=== PATIENT | male | born 1960 | race Hispanic/Latino ===

== ENCOUNTER 2018-10-07 15:34 | Emergency (ER) | payer OTHER ==
--- OUTSIDE RECORDS SUMMARY | 2018-10-07 15:35 | XMS REPORT | Clinical Summary ---
:1960 Author Organization [facility] Address [address] [place] [id number] Care Team Providers Name Role Phone Asked, No Pcp Primary Care Provider Unavailable Allergies No Known Allergies Medications Medication Sig Dispensed Refills Start Date End Date Status metoprolol succinate Take 200 mg by 0 Active XL (TOPROL-XL) 200 mg mouth daily. 24 hr tablet apixaban (ELIQUIS) Take 2.5 mg by 0 Active 2.5 mg tablet mouth 2 (two) times a day. clonIDINE Place 1 patch on 0 Active (CATAPRES-TTS) 0.3 the skin once a mg/24 hr week. diltiazem CD Take 120 mg by 0 Active (CardIZEM CD) 120 MG mouth daily. 24 hr capsule amIODarone (PACERONE) Take 100 mg by 0 Active 100 MG tablet mouth daily. hydrALAZINE Take 10 mg by mouth 0 Active (APRESOLINE) 10 MG 3 (three) times a tablet day. aspirin (ECOTRIN) 81 Take 81 mg by mouth 0 Active MG enteric coated daily. tablet ezetimibe (ZETIA) 10 Take 10 mg by mouth 0 Active mg tablet daily. bimatoprost (LUMIGAN) 1 drop nightly. 0 Active 0.01 % ophthalmic drops brimonidine-timolol Administer 1 drop 0 Active (COMBIGAN) 0.2-0.5 % to both eyes every ophthalmic solution 12 (twelve) hours. insulin GLARGINE Inject under the 0 Active (LANTUS) 100 unit/mL skin nightly. injection (vial) Active Problems Not on file Social History Tobacco Use Types Packs/Day Years Used Date Never Smoker Alcohol Use Drinks/Week oz/Week Comments No Sex Assigned at Date Recorded Not on file Job Start Date Occupation Industry Not on file Not on file Not on file Travel History Travel Start Travel End No recent travel history available. Last Filed Vital Signs Not on file Plan of Treatment Health Maintenance Due Date Last Done Comments COLON CANCER SCREENING 01/31/2010 SHINGLES VACCINES (1 of 2) 01/31/2010 INFLUENZA VACCINE 04/11/2018 Results Not on fileafter 10/06/2017 Insurance Payer Benefit Plan / Group Subscriber ID Type Phone Address MEDICARE MEDICARE PART A AND B xxxxxxxxxx Medicare [place], [place] AETNA AETNA HMO,POS,EPO, MC/EC xxxxxxxxxx HMO (Home) [place] [address] Advance Directives Patient has advance care planning documents on file. For more information, please contact:Luciano Hampton[address] [place] [address]
--- OUTSIDE RECORDS SUMMARY | 2018-10-07 15:36 | XMS REPORT | Clinical Summary ---
:1960 Author Organization [facility] Address [address] [place] [address] Care Team Providers Name Role Phone Hiram Primary Care Provider Allergies No Known Allergies Medications Medication Sig Dispensed Refills Start Date End Date Status metoprolol Take 200 mg by mouth 0 Active (TOPROL-XL) 100 MG 24 daily . hr tablet bimatoprost (LUMIGAN) Place 1 drop into 0 Active 0.03 % ophthalmic both eyes 2 (two) drops times daily . amiodarone (PACERONE) Take 200 mg by mouth 0 Active 200 MG tablet daily. ezetimibe (ZETIA) 10 Take 10 mg by mouth 0 Active mg tablet daily. insulin glargine Inject 50 Units 0 Active (LANTUS) 100 unit/mL subcutaneously 2 injection (two) times daily Use as directed-depending on glucose level. insulin aspart Inject 0 Active (NOVOLOG) 100 unit/mL subcutaneously as injection needed . sevelamer (RENVELA) Take 3,200 mg by 0 Active 800 mg tablet mouth 3 (three) times daily with meals Take 4 tabs TID w/ meals 2 TAB W/SNACKS. apixaban (ELIQUIS) Take 2.5 mg by mouth 0 Active 2.5 mg Tab tablet 2 (two) times daily. diltiazem (DILACOR Take 120 mg by mouth 0 Active XR) 120 MG 24 hr daily. capsuleIndications: Patient awaiting renal transplant cloNIDine HCl Take 0.1 mg by mouth 0 Active (CATAPRES) 0.1 MG daily . tabletIndications: Patient awaiting renal transplant hydrALAZINE Take 25 mg by mouth 0 Active (APRESOLINE) 25 MG 2 (two) times daily. tablet dorzolamide (TRUSOPT) Place 1 drop into 0 Active 2 % ophthalmic the right eye 2 solution (two) times daily. aspirin 81 MG EC Take 81 mg by mouth 0 Active tabletIndications: daily. Patient awaiting renal transplant, ESRD (end stage renal disease) ([facility]), Pre-transplant evaluation for ESRD (end stage renal disease), Diabetes mellitus due to underlying condition with hyperosmolarity without coma, with long-term current use of insulin ([facility]), PVD (peripheral vascular disease) ([facility]), S/P bilateral BKA (below knee amputation) ([facility]), Coronary artery disease involving [place] coronary artery of [place] heart without angina pectoris, Essential hypertension, Nonrheumatic aortic valve stenosis Active Problems Patient Care Coordination Note Dr Gibbs - Cardiol Tel.#: [phone] Dr. Herndon - Neph Tel.: [phone] Problem Noted Date Pre-transplant evaluation for ESRD (end stage renal disease) 09/21/2017 Patient awaiting renal transplant 09/21/2017 Diabetes mellitus due to underlying condition with hyperosmolarity without 07/2018 coma, with long-term current use of insulin Nonrheumatic aortic valve stenosis 09/21/2017 ESRD (end stage renal disease) 02/11/2016 Status post kidney transplant 02/11/2016 BK virus nephropathy 02/11/2016 Patient on waiting list for kidney transplant 02/11/2016 Diabetes mellitus due to underlying condition with hyperosmolarity without 10/2015 coma PVD (peripheral vascular disease) 02/11/2016 S/P bilateral BKA (below knee amputation) 02/11/2016 Chronic atrial fibrillation 02/11/2016 Essential hypertension 02/11/2016 Coronary artery disease 12/16/2014 Encounters Date Type Specialty Care Team Description 09/16/2018 Orders Only Transplant Iwona Peters RN Awaiting transplantation of kidney (Primary Dx) 08/03/2018 Abstract Transplant Iwona Peters RN 07/15/2018 Documentation Transplant Iwona Peters RN 01/08/2018 Orders Only Transplant Jorge Stanford MD 12/15/2017 Hospital Encounter Cardiology Jorge Stanford MD Aortic valve stenosis, etiology of cardiac valve disease unspecified 11/28/2017 Orders Only Cardiology Jorge Stanford MD Aortic valve stenosis, etiology of cardiac valve disease unspecified (Primary Dx) after 10/06/2017 Family History Medical History Relation Name Comments Hypertension Brother Hypertension Brother Hypertension Brother Hypertension Brother No Known Problem Daughter Heart attack Father Heart disease Father Diabetes Mother No Known Problem Son Relation Name Status Comments Brother Alive Brother Alive Brother Alive Brother Alive Daughter Alive Father Mother Alive Sister Alive Sister Alive Sister Alive Sister Alive Son Alive Social History Tobacco Use Types Packs/Day Years Used Date Never Smoker Smokeless Tobacco: Never Used Alcohol Use Drinks/Week oz/Week Comments No Sex Assigned at Date Recorded Not on file Job Start Date Occupation Industry Not on file Not on file Not on file Travel History Travel Start Travel End No recent travel history available. 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 FLOW PRA CLASS I WITH Routine 07/16/2018 9:52 Patient awaiting Results for this REFLEX TO ANTIBODY AM [employer] renal transplant procedure are in SPECIFICITY the results section. FLOW PRA CLASS II WITH Routine 04/12/2018 2:04 Patient awaiting Results for this REFLEX TO ANTIBODY PM CDT renal transplant procedure are in SPECIFICITY the results section. FLOW PRA CLASS I WITH Routine 04/12/2018 2:04 Patient awaiting Results for this REFLEX TO ANTIBODY PM CDT renal transplant procedure are in SPECIFICITY the results section. ECHOCARDIOGRAM REPORT - 12/15/2017 5:50 SCAN PM CDT TRANSESOPHAGEAL ECHO Routine 12/15/2017 10:29 Aortic valve Results for this AM CDT stenosis, etiology procedure are in of cardiac valve the results disease unspecified section. GOPAL ECHO W/ CONTRAST Routine 12/15/2017 FLOW PRA CLASS II WITH Routine 10/20/2017 11:03 Patient awaiting Results for this REFLEX TO ANTIBODY AM [employer] renal transplant procedure are in SPECIFICITY the results section. FLOW PRA CLASS I WITH Routine 10/20/2017 11:03 Patient awaiting Results for this REFLEX TO ANTIBODY AM [employer] renal transplant procedure are in SPECIFICITY the results section. after 10/06/2017 Results FLOW PRA CLASS II WITH REFLEX TO ANTIBODY SPECIFICITY (07/16/2018 9:52 AM [employer]) Only the most recent of3 resultswithin the time period is included. Flow Class II Percent Positive 0 [facility] Flow Class Report Comments [facility] Specimen Blood Narrative Performed At Disclaimer: [facility] This test was developed and its performance characteristics determined by the [facility]. It has not been cleared or approved by the U.S. Food and Drug Administration. The FDA has determined that such clearance or approval is not necessary. This test is used for clinical purposes. It should not be regarded as investigational or for research. This laboratory is certified under the Clinical Laboratory Improvement Amendments of 1988 (CLIA-88) as qualified to perform high complexity clinical laboratory testing. Performing Organization Address City/[facility] Phone Number [facility] [address] Sarthak Emma, [place]: [place] [address] [id number], CLIA#[id number] CAP#[id number] UNOS#[id number] FLOW PRA CLASS I WITH REFLEX TO ANTIBODY SPECIFICITY (07/16/2018 9:52 AM [employer] SUPERVISOR) Only the most recent of3 resultswithin the time period is included. Flow Class I Percent Positive 0 [facility] Flow Class Report Comments [facility] Specimen Blood Narrative Performed At Disclaimer: [facility] This test was developed and its performance characteristics determined by the [facility]. It has not been cleared or approved by the U.S. Food and Drug Administration. The FDA has determined that such clearance or approval is not necessary. This test is used for clinical purposes. It should not be regarded as investigational or for research. This laboratory is certified under the Clinical Laboratory Improvement Amendments of 1988 (CLIA-88) as qualified to perform high complexity clinical laboratory testing. Performing Organization Address City/State/Zipcode Phone Number [facility] ONE [facility] Emma, [place]: [place] [address] [id number], CLIA#[id number] CAP#[id number] UNOS#[id number] ECHOCARDIOGRAM REPORT - SCAN (12/15/2017 5:50 PM CDT) Narrative Performed At Transesophageal echo (12/15/2017 10:29 AM CDT) Ejection Fraction [facility] Narrative Performed At Transesophageal Echocardiography Report (GOPAL) [facility] Demographics Patient NameMonse HU of Study12/15/2017 Gender Male Visit [id number] Race Unknown Numberop Number Date of 1960 Referring PhysicianSgarett Patel MD Age 57 year(s) [facility] Mukund Jiang MD Physician FellowCarMESERET Espinoza Procedure Type of Study GOPAL procedure:TRANSESOPHAGEAL ECHO Indications:Aortic stenosis. Clinical History A-FIB,CAD,DM,ESRD,HTN,BKA,MV-CALCIFICATION,PVD Height: 73 inches Weight: 125.65 kg (277 lbs) BSA: 2.47 m^2 BMI: 36.55 kg/m^2 HR: 49 bpm BP: 81/43 mmHg Procedure Informed Consent GOPAL procedure notes The patient was counseled and informed consent was obtained. Topical and intravenous anesthesia was administered. The esophagus was intubated without difficulty. The probe was passed and all standard echocardiographic views were obtained. IV saline contrast echo examination was performed with GOPAL. The patient tolerated the procedure well. Procedure Medications - Versed I.V. 1 mg. - Fentanyl I.V. 25 mcg. Summary 1. Moderate aortic stenosis with peak/mean gradient is 33/21mmHg. AoV area by planimetry by 3D imaging is in the range of 1.85 cm2. Mild aortic regurgitation. AR vena contracta is 0.35. Mild to moderate AoV cusp thickening and calcification. 2. Normal left ventricular chamber size. Mild basal septal hypertrophy. Normal overall left ventricular systolic function. No apparent segmental wall motion abnormalities. The right ventricular chamber size and systolic function are within normal limits. LA appendage thrombus is not present 3. IV saline contrast injection was negative for a PFO (patent foramen ovale) at rest and post Valsalva . Previous Study Compared to prior study dated 08/18/2017, there is no significant change. Signature Findings Rhythm/BPRegular sinus rhythm during the exam. Left Ventricle Normal left ventricular chamber size. Mild basal se ptal hypertrophy. Normal overall left ventricular sy stolic function. No apparent segmental wall mo tion abnormalities. Left AtriumLA is enlarged but severity assessment is un reliable due to known GOPAL sector size limitation. LA appendage morphology is simple (wind sock) . LA ap pendage thrombus is not present . Right VentricleThe right ventricular chamber size and systolic fu nction are within normal limits. Right Atrium RA size is normal. A prominent Eustachian Valve is noted in the right at rium. Atrial SeptumA patent foramen ovale (PFO) is not demonstrated by co sabrina Doppler. IV saline contrast injection was negative for a PFO (p atent foramen ovale) at rest and post Valsalva . Aortic Valve Moderate aortic stenosis with peak/mean gradient is 33 /21mmHg. AoV area by planimetry by 3D imaging is in the range of 1.85 cm2. Mild aortic re gurgitation. AR vena contracta is 0.35. Mild to mo derate AoV cusp thickening and calcification. Mitral Valve Mild MV leaflet calcification, more prominent on th e anterior leaflet. Tricuspid ValveTV structure is normal. A trace of tricuspid regurgitation. Pulmonic Valve Normal PV structure and function. AortaAortic root size (SInus of Valsalva diameter) is no rmal . There is focal aortic atheroma in the fo llowing location: descending thoracic aorta . PericardiumNo pericardial effusion is visualized. IVC/SVC/PA/PV/PleuralThe visualized SVC appears normal. Chambers/Structures Left Ventricle LVOT Diameter: 2.23 cm Doppler/Quantitative Measurements Aortic Valve Peak Velocity: 2.85 m/sMean Velocity: 2.15 m/s Peak Gradient: 32.49 mmHgMean Gradient: 20.24 mmHg AV VTI: 73.83 cm LVOT Peak Velocity: 0.65 m/s Peak Gradient: 1.7 mmHg Mean Velocity: 0.5 m/sMean Gradient: 1.13 mmHg LVOT Diameter: 2.23 cm LVOT Area: 3.91 cm^2 Procedure Note Interface, External Ris In - 12/15/2017 5:28 PM CDT Transesophageal Echocardiography Report (GOPAL) Demographics Patient Name RASHAD HU Date of Study 12/15/2017 Gender Male Visit Number [id number] Race Unknown Room Number op Number Date of 1960 Referring Physician Abdoulaye Patel MD Age 57 year(s) 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 Clinical History A-FIB,CAD,DM,ESRD,HTN,BKA,MV-CALCIFICATION,PVD Height: 73 inches Weight: 125.65 kg (277 lbs) BSA: 2.47 m^2 BMI: 36.55 kg/m^2 HR: 49 bpm BP: 81/43 mmHg Procedure Informed Consent GOPAL procedure notes The patient was counseled and informed consent was obtained. Topical and intravenous anesthesia was administered. The esophagus was intubated without difficulty. The probe was passed and all standard echocardiographic views were obtained. IV saline contrast echo examination was performed with GOPAL. The patient tolerated the procedure well. Procedure Medications - Versed I.V. 1 mg. - Fentanyl I.V. 25 mcg. Summary 1. Moderate aortic stenosis with peak/mean gradient is 33/21mmHg. AoV area by planimetry by 3D imaging is in the range of 1.85 cm2. Mild aortic regurgitation. AR vena contracta is 0.35. Mild to moderate AoV cusp thickening and calcification. 2. Normal left ventricular chamber size. Mild basal septal hypertrophy. Normal overall left ventricular systolic function. No apparent segmental wall motion abnormalities. The right ventricular chamber size and systolic function are within normal limits. LA appendage thrombus is not present 3. IV saline contrast injection was negative for a PFO (patent foramen ovale) at rest and post Valsalva . Previous Study Compared to prior study dated 08/18/2017, there is no significant change. Signature Findings Rhythm/BP Regular sinus rhythm during the exam. Left Ventricle Normal left ventricular chamber size. Mild basal septal hypertrophy. Normal overall left ventricular systolic function. No apparent segmental wall motion abnormalities. Left Atrium LA is enlarged but severity assessment is unreliable due to known GOPAL sector size limitation. LA appendage morphology is simple (wind sock) . LA appendage thrombus is not present . Right Ventricle The right ventricular chamber size and systolic function are within normal limits. Right Atrium RA size is normal. A prominent Eustachian Valve is noted in the right atrium. Atrial Septum A patent foramen ovale (PFO) is not demonstrated by color Doppler. IV saline contrast injection was negative for a PFO (patent foramen ovale) at rest and post Valsalva . Aortic Valve Moderate aortic stenosis with peak/mean gradient is 33/21mmHg. AoV area by planimetry by 3D imaging is in the range of 1.85 cm2. Mild aortic regurgitation. AR vena contracta is 0.35. Mild to moderate AoV cusp thickening and calcification. Mitral Valve Mild MV leaflet calcification, more prominent on the anterior leaflet. Tricuspid Valve TV structure is normal. A trace of tricuspid regurgitation. Pulmonic Valve Normal PV structure and function. Aorta Aortic root size (SInus of Valsalva diameter) is normal . There is focal aortic atheroma in the following location: descending thoracic aorta . Pericardium No pericardial effusion is visualized. IVC/SVC/PA/PV/Pleural The visualized SVC appears normal. Chambers/Structures Left Ventricle LVOT Diameter: 2.23 cm Doppler/Quantitative Measurements Aortic Valve Peak Velocity: 2.85 m/s Mean Velocity: 2.15 m/s Peak Gradient: 32.49 mmHg Mean Gradient: 20.24 mmHg AV VTI: 73.83 cm LVOT Peak Velocity: 0.65 m/s Peak Gradient: 1.7 mmHg Mean Velocity: 0.5 m/s Mean Gradient: 1.13 mmHg LVOT Diameter: 2.23 cm LVOT Area: 3.91 cm^2 Performing Organization Address City/State/Zipcode Phone Number [facility] GOPAL ECHO W/ CONTRAST (12/15/2017) Narrative Performed At after 10/06/2017 Insurance Payer Benefit Plan / Group Subscriber ID Type Phone Address MEDICARE MEDICARE A B xxxxxxxxxx Medicare AETNA - MGD CARE AETNA HMO POS QPOS xxxxxxxxxx HMO/POS Advance Directives For more information, please contact:[address] [phone] Code Status Date Activated Date Inactivated Comments Full Code 12/16/2014 7:13 AM 12/16/2014 3:37 PM This code status was determined by: Patient
--- OUTSIDE RECORDS SUMMARY | 2018-10-07 15:36 | XMS REPORT ---
:1960 [facility] Address [address] [place] [address] [address]. Petersen [address] [place] [address] Care Team Providers Name Role Phone KAREN HARTJUANSONNY LOPEZMARIA L Unavailable Unavailable ANGELICA GARCIAS Unavailable Unavailable SYSTEM, PROVIDER NOT IN Unavailable Unavailable Problems This patient has no known problems. Allergies, Adverse Reactions, Alerts This patient has no known allergies or adverse reactions. Medications This patient has no known medications. Results Test Description Test Time Test Comments Text Results Atomic Results Result Comments FLOW PRA CLASS I AND II 2017-09-01 09:33:00 Test Item Value Reference Range Comments DATE OF SERUM (BEAKER) (test xdhu=1166) [id number] SERUM # (BEAKER) (test tswb=9528) [id number] FLOW PRA CLASS I AND II (test oikk=7870) See Scanned Report [id number] 14:03:00 Test Item Value Reference Range Comments PROSTATE SPECIFIC ANTIGEN (BEAKER) (test tgmk=242) 0.9 ng/mL 0.0-4.0 HEPATITIS B SURFACE [id number] 14:03:00 Test Item Value Reference Range Comments HEPATITIS B SURFACE ANTIBODY (BEAKER) (test 219.6 mIU/mL <8.0 jbbl=737) FLOW PRA CLASS I AND [id number] 10:35:00 Test Item Value Reference Range Comments DATE OF SERUM (BEAKER) (test abgm=4724) [id number] SERUM # (BEAKER) (test dvug=5657) [id number] FLOW PRA CLASS I AND II (test uwpk=4456) See Scanned Report AB SPECIFICITY CLASS [id number] 14:51:00 Test Item Value Reference Range Comments DATE OF SERUM (BEAKER) (test eytv=3655) [id number] SERUM # (BEAKER) (test krtb=9296) [id number] AB SPECIFICITY CLASS I (BEAKER) (test See Scanned Report nese=1023) FLOW PRA CLASS I AND [id number] 12:38:00 Test Item Value Reference Range Comments DATE OF SERUM (BEAKER) (test zyae=6905) [id number] SERUM # (BEAKER) (test ihcg=8541) [id number] FLOW PRA CLASS I AND II (test psdr=7230) See Scanned Report AB SPECIFICITY CLASS [id number] 20:03:00 Test Item Value Reference Range Comments DATE OF SERUM (BEAKER) (test jnor=8506) [id number] SERUM # (BEAKER) (test fjzr=6183) 22408 AB SPECIFICITY CLASS I (BEAKER) (test See Scanned Report egqr=3243) AB SPECIFICITY CLASS [id number] 12:38:00 Test Item Value Reference Range Comments DATE OF SERUM (BEAKER) (test hucb=7741) [id number] SERUM # (BEAKER) (test keku=0921) [id number] AB SPECIFICITY CLASS I (BEAKER) (test See Scanned Report pqpc=0094) FLOW PRA CLASS I AND [id number] 13:37:00 Test Item Value Reference Range Comments DATE OF SERUM (BEAKER) (test ysna=3688) [id number] SERUM # (BEAKER) (test rkac=1200) [id number] FLOW PRA CLASS I AND II (test ywoz=2832) See Scanned Report FLOW PRA CLASS I AND [id number] 09:49:00 Test Item Value Reference Range Comments DATE OF SERUM (BEAKER) (test njgu=6279) [id number] SERUM # (BEAKER) (test gwln=9587) [id number] FLOW PRA CLASS I AND II (test fbwm=1146) See Scanned Report AB SPECIFICITY CLASS [id number] 15:29:00 Test Item Value Reference Range Comments DATE OF SERUM (BEAKER) (test oyph=3307) 03/15/17 SERUM # (BEAKER) (test owra=1185) [id number] AB SPECIFICITY CLASS I (BEAKER) (test See Scanned Report uksw=1908) AB SPECIFICITY CLASS [id number] 14:06:00 Test Item Value Reference Range Comments DATE OF SERUM (BEAKER) (test vrzv=4331) [id number] SERUM # (BEAKER) (test vsps=8102) [id number] AB SPECIFICITY CLASS I (BEAKER) (test See Scanned Report zwal=9478) FLOW PRA CLASS I AND [id number] 13:16:00 Test Item Value Reference Range Comments DATE OF SERUM (BEAKER) (test rvdn=7777) [id number] SERUM # (BEAKER) (test oele=6910) [id number] FLOW PRA CLASS I AND II (test nxdn=8534) See Scanned Report AB SPECIFICITY CLASS [id number] 10:23:00 Test Item Value Reference Range Comments DATE OF SERUM (BEAKER) (test ttjl=9616) [id number] SERUM # (BEAKER) (test sxtl=5618) [id number] AB SPECIFICITY CLASS I (BEAKER) (test See Scanned Report kpjf=9010) FLOW PRA CLASS I AND [id number] 12:53:00 Test Item Value Reference Range Comments DATE OF SERUM (BEAKER) (test arho=1001) [id number] SERUM # (BEAKER) (test ptxh=0541) [id number] FLOW PRA CLASS I AND II (test vduz=5222) See Scanned Report
[2018-10-07] MEDS ORDERED: MEPERIDINE HCL 50 MG/ML AMP ONE (16:26)
--- NOTE | 2018-10-07 16:52 | RAD REPORT ---
EXAM DESCRIPTION: CT - Head Brain Wo Cont - 10/07/2018 4:19 pm CLINICAL HISTORY: Head injury status post fall COMPARISON: None. TECHNIQUE: Computed axial tomography of the head was obtained. Unenhanced and enhanced images obtain ed. 50 cc Isovue-[address] scans are performed using dose optimization technique as appropriate and may include automated exposure control or mA/KV adjustment according to patient size. FINDINGS: An intracranial bleed is not seen . The ventricles are normal in caliber. No extra-axial fluid collection is noted. No abnormal enhancement seen Fluid within the sinuses/ mastoids is not seen. IMPRESSION: No acute intracranial abnormality is seen. If patient's symptoms persist MRI of the bra in would be recommended.
[2018-10-07 17:03] LABS: Absolute Lymphocytes (CBC) 0.7 K/uL (0.7-4.9); Absolute Monocytes 0.4 K/uL (0.1-1.3); Absolute Neutrophil 6.1 K/uL (1.8-8.0); Basophils % 0.5 % (0-1.3); Eosinophils % 4.4 % (0-4.4); Lymphocytes % 9.4 % (15.3-44.8); Monocytes % 5.5 % (3.3-12.3); RBC Red Blood Cell Count 3.64 M/uL (4.33-5.43)
[2018-10-07 17:12] LABS: Protime INR 1.13
--- NOTE | 2018-10-07 17:13 | RAD REPORT ---
EXAM DESCRIPTION: CT - Chest Abd Pelvis Wo Con - 10/07/2018 4:30 pm CLINICAL HISTORY: Chest and abdominal pain status post fall COMPARISON: none TECHNIQUE: Computed axial tomography of the chest, abdomen and pelvis was obtained. Oral contrast wa s given. IV contrast was not requested. All CT scans are performed using dose optimization technique as appropriate and may include automated exposure control or mA/KV adjustment according to patient size. FINDINGS: The evaluation of mediastinum, angela, vessels and solid organs is limited secondary to the lack of IV contrast administration Minimally displaced fractures involve the fourth and fifth left lateral ribs. Mildly displaced fractu re involves the sixth lateral left rib. Mildly to moderately displaced fracture involves the seventh left lateral rib. A pneumothorax is not seen. Mild to moderate tree-in-bud opacities are present within the left lower lobe A pleural effusion is not seen. A pericardial effusion is not noted. A mediastinal hematoma is not seen. Small splenic subcapsular hematoma is present. Small laceration of the inferior spleen is suspected a lthough evaluation is limited secondary to the lack of IV contrast. Small amount of blood is present within the left paracolic gutter. Small to moderate amount of blood is present within the pelvis. The liver, pancreas and bladder do not demonstrate a traumatic injury. Atrophic kidneys with transplant kidney in the right pelvis. Mild hydronephrosis of the transplant ki dney is seen without visualization of a ureteral calculus Chronic destruction of the vertebral bodies of T7 and T8 with small paraspinal soft tissue seen. The T6-7 disc space is obliterated. Irregularity involves the vertebral endplate of the T6 vertebral body . Mild perivertebral soft tissue noted. IMPRESSION: Fractures involving the fourth, fifth, sixth, seventh left lateral ribs Mild to moderate tree-in-bud opacities left lower lobe may indicate an atypical infection or pneumoni tis Small subcapsular splenic hematoma with small amount of hemoperitoneum within the abdomen and a small to moderate amount of hemoperitoneum within the pelvis Chronic osteomyelitis of the T6, T7 and T8 Exam was discussed with Dr. Sandy In the emergency room 5:04 p.m. October 07, 2018
--- NOTE | 2018-10-07 17:15 | RAD REPORT ---
EXAM DESCRIPTION: Crystal Pizarro And Jacquelyn (2 Views)10/07/2018 4:54 pm CLINICAL HISTORY: Chest pain COMPARISON: 2016 FINDINGS: Mildly to moderately displaced fractures involve fourth through seventh left lateral ribs . A pneumothorax is not seen. Mild left basilar lung opacities are noted. Right lung is clear. Heart is normal size
--- NOTE | 2018-10-07 17:15 | RAD REPORT ---
EXAM DESCRIPTION: RAD - Ribs Left - 10/07/2018 4:54 pm CLINICAL HISTORY: Left rib pain FINDINGS: Mildly to moderately displaced fractures involve the left lateral fourth through seventh r ibs. A pneumothorax is not seen. Mild left lower lobe opacities are noted. A pleural effusion is not seen
--- NOTE | 2018-10-07 17:34 | ER ---
Nurse's Notes [facility] Name: Archie Hu Age: 58 yrs Sex: Male : 1960 Arrival Date: 10/07/2018 Time: 15:37 Bed 3 Private MD: ROSE MARIE TOWNSEND Diagnosis: Multiple fractures of ribs, left side;Hemoperitoneum;Splenic Laceration Presentation: 10/07 15:41 Presenting complaint: Patient states: I was standing and stumbled over something and la1 landed on my left side, I hit my head, my chest, and my left arm, I almost passed out it was fading to black but I also to elequis. My ribs hurt the worst. Transition of care: patient was not received from another setting of care. Onset of symptoms was October 07, 2018. Risk Assessment: Do you want to hurt yourself or someone else? Patient reports no desire to harm self or others. Initial Sepsis Screen: Does the patient meet any 2 criteria? No. Patient's initial sepsis screen is negative. Does the patient have a suspected source of infection? No. Patient's initial sepsis screen is negative. Care prior to arrival: None. 15:41 Method Of Arrival: Ambulatory la1 15:41 Acuity: KEVON 3 la1 17:43 Mechanism of Injury: Fall from standing position. Trauma event details: Injury occurred ph in the [facility]. 17:44 Acuity: KEVON 1 ph Trauma Activation: Alert Physician: ED Physician; Name: Vika; Notified At: ; Arrived At: Physician: General Surgeon; Name: ; Notified At: ; Arrived At: Physician: Radiology; Name: June; Notified At: ; Arrived At: Physician: Respiratory; Name: ; Notified At: ; Arrived At: Physician: Lab; Name: ; Notified At: ; Arrived At: Historical: - Allergies: 15:42 No Known Allergies; la1 - Home Meds: 15:45 Eliquis 2.5 mg oral tab 1 tab 2 times per day [Active]; metoprolol tartrate 200 mg Oral rb1 tab 1 tab once daily [Active]; clonidine HCl 0.3 mg Oral tab 1 tab daily [Active]; hydralazine 25 mg Oral tab 1 tab 2 times per day [Active]; aspirin 81 mg Oral chew 1 tab once daily [Active]; Lantus Sub-Q [Active]; Lumigan 0.01 % ophthalmic drop 1 drop daily [Active]; Trusopt 2 % Opht drop 1 drop twice a day [Active]; - PMHx: 15:42 Atrial Fib; Diabetes - IDDM; Dialysis; MWF - compliant; ESRD; Glaucoma; Hyperlipidemia; la1 - PSHx: 15:45 Bilateral BKA; Dialysis shunt left forearm; rb1 - Immunization history:: Adult Immunizations up to date. - Social history:: Smoking status: Patient/guardian denies using tobacco. - Immunization history: Last tetanus immunization: unknown. - Ebola Screening: : No symptoms or risks identified at this time. - Family history:: not pertinent. - Hospitalizations: : No recent hospitalization is reported. Screenin:46 Abuse screen: Denies threats or abuse. Denies injuries from another. Nutritional ph screening: No deficits noted. Tuberculosis screening: No symptoms or risk factors identified. Fall Risk Fall in past 12 months (25 points). Secondary diagnosis (15 points) impaired mobility, IV access (20 points). Ambulatory Aid- None/Bed Rest/Nurse Assist (0 pts). Gait- Impaired (20 pts.). Mental Status- Overestimates/Forgets Limitations (15 pts.). Total Guidry Fall Scale indicates High Risk Score (45 or more points). Fall prevention measures have been instituted. Side Rails Up X 2 Placed Close to Nursing Station Frequent Obs/Assessments Occuring Family Present and informed to notify staff if the need to leave the bedside As available patient and family educated on Fall Prevention Program and Strategies. Primary Survey: 17:45 NO uncontrolled hemorrhage observed. Breathing/Chest: Respiratory pattern: regular, sg Respiratory effort: spontaneous, unlabored, Breath sounds: clear, diminished. Circulation: Heart tones present. Pulses: palpable right radial artery and left radial artery. Skin color: pale, ashen, Skin temperature: dry. Disability Alert. Exposure/Environment: All clothing and personal items were removed. Forensic evidence collection is not deemed to be indicated at this time. Items placed in patient belonging bag. There is no evidence of uncontrolled external bleeding. Obvious injury(ies) are noted at this time: Left Rib pain. 18:01 Reassessment Airway Airway Breathing/Chest Respiratory pattern Regular Respiratory sg effort Spontaneous Unlabored Breath sounds Clear Chest inspection Symmetrical Circulation Heart rhythm Sinus tach Heart tones Present Pulses Palpable Temperature Warm. Secondary Survey: 17:45 HEENT: Head No injury/deformity Face No injury/deformity Eyes: No injury or deformity sg noted. Ears: clear Nose: clear Throat: is clear. Gastrointestinal: Abdomen is soft, non-distended, Bowel sounds present in all quadrants. Palpation No deficit noted. : pt reports very little urine output, due to dialysis MWF. Musculoskeletal: Circulation, motion, and sensation intact. Range of motion: intact in all extremities, pt reports Bilateral BKA. Injury Description: pt reports pain in the left side of chest. Assessment: 15:45 General: Appears in no apparent distress. comfortable, Behavior is calm, cooperative. rb1 Neuro: Level of Consciousness is awake, alert, obeys commands, Oriented to person, place, time, situation. Cardiovascular: Capillary refill < 3 seconds is brisk in bilateral fingers. Respiratory: Airway is patent Respiratory effort is even, unlabored, Respiratory pattern is regular, symmetrical. 15:45 Pain: Complains of pain in left ribs Pain currently is 10 out of 10 on a pain scale. rb1 Pain began 30 min ago. Neuro: Reports dizziness. Respiratory: Reports shortness of breath. GI: No signs and/or symptoms were reported involving the gastrointestinal system. : Reports Dialysis on --. Derm: Skin is dry, Skin is normal, Skin temperature is warm. Musculoskeletal: Bilateral amputations on the lower extremities. 16:45 Reassessment: Patient appears in no apparent distress at this time. No changes from rb1 previously documented assessment. at bedside. 17:20 Reassessment: Patient and/or family updated on plan of care and expected duration. Pain rb1 level reassessed. Patient is alert, oriented x 3, equal unlabored respirations, skin warm/dry/pink. Patient states symptoms have not improved. 17:30 Reassessment: Pt. was moved to Bed #3, report given to ERI Rapp. rb1 17:40 Reassessment: Called report to Mei Lal RN at [place]. Information from the [facility] rb1 was given. All questions asked and answered. 17:40 Reassessment: pt report received from Diane HWANG. sg 18:08 Reassessment: at bedside updating pt and pt family on POC, awaiting [facility] sg at si time. 18:16 Reassessment: Patient appears in no apparent distress at this time. No changes from sg previously documented assessment. [facility] at bedside at this time, pt reprot given to Simon with [facility]. Vital Signs: 15:42 BP 102 / 67; Pulse 101; Resp 18; Temp 97.4; Pulse Ox 98% on R/A; Weight 124.74 kg; la1 Height 6 ft. 1 in. (185.42 cm); Pain 10/10; 16:42 BP 106 / 87; Pulse 51; Resp 20; Pulse Ox 100% on R/A; Pain 10/10; rb1 17:00 BP 106 / 79; Pulse 86; Resp 20; Pulse Ox 100% on R/A; rb1 17:46 BP 112 / 75; Pulse 105; Resp 17; Pulse Ox 98% on R/A; sg 17:58 BP 94 / 67; Pulse 106; Resp 17; Temp 97.7; Pulse Ox 98% on R/A; Pain 10/10; sg 18:10 BP 109 / 76; Pulse 112; Resp 17; Temp 97.4; Pulse Ox 98% on R/A; Pain 7/10; sg 15:42 Body Mass Index 36.28 (124.74 kg, 185.42 cm) la1 Harrison Coma Score: 15:45 Eye Response: spontaneous(4). Verbal Response: oriented(5). Motor Response: obeys rb1 commands(6). Total: 15. 17:30 Eye Response: spontaneous(4). Verbal Response: oriented(5). Motor Response: obeys rb1 commands(6). Total: 15. 17:48 Eye Response: spontaneous(4). Verbal Response: oriented(5). Motor Response: obeys ph commands(6). Total: 15. 17:58 Eye Response: spontaneous(4). Verbal Response: oriented(5). Motor Response: obeys sg commands(6). Total: 15. Trauma Score (Adult): 15:45 Eye Response: spontaneous(1); Verbal Response: oriented(1); Motor Response: obeys rb1 commands(2); Systolic BP: > 89 mm Hg(4); Respiratory Rate: 10 to 29 per min(4); Harrison Score: 15; Trauma Score: 12 16:42 Eye Response: spontaneous(1); Verbal Response: oriented(1); Motor Response: obeys rb1 commands(2); Systolic BP: > 89 mm Hg(4); Respiratory Rate: 10 to 29 per min(4); Harrison Score: 15; Trauma Score: 12 17:30 Eye Response: spontaneous(1); Verbal Response: oriented(1); Motor Response: obeys rb1 commands(2); Systolic BP: > 89 mm Hg(4); Respiratory Rate: 10 to 29 per min(4); Giacomo Score: 15; Trauma Score: 12 17:58 Eye Response: spontaneous(1); Verbal Response: oriented(1); Motor Response: obeys sg commands(2); Systolic BP: > 89 mm Hg(4); Respiratory Rate: 10 to 29 per min(4); Harrison Score: 15; Trauma Score: 12 ED Course: 15:37 Patient arrived in ED. mr 15:37 ROSE MARIE TOWNSEND is Private Physician. mr 15:42 Triage completed. la1 15:43 Boby Sandy MD is Attending Physician. rn 15:45 Patient maintains SpO2 saturation greater than 95% on room air. rb1 16:12 Diane Saunders, RN is Primary Nurse. rb1 16:19 CT Head Brain wo Cont In Process Unspecified. EDMS 16:30 Chest Abd Pelvis Wo Con In Process Unspecified. EDMS 16:31 CT completed. Patient moved back from CT. bq 16:50 Inserted saline lock: 22 gauge in right antecubital area, using aseptic technique. rb1 Blood collected. 16:55 XRAY Ribs LEFT In Process Unspecified. EDMS 16:55 XRAY Chest Pa And Lat (2 Views) In Process Unspecified. EDMS 17:40 Inserted saline lock: 20 gauge in right wrist, using aseptic technique. Blood collected.sg 17:47 Patient maintains SpO2 saturation greater than 95% on room air. Thermoregulation: warm ph blanket given to patient. 17:47 Arm band placed on. ph 17:47 Patient has correct armband on for positive identification. Bed in low position. Call ph light in reach. Side rails up X2. ekg monitor tech on. Pulse ox on. NIBP on. 17:47 Warm blanket given. Head of bed elevated. pt prefers to sit on side of bed with feet sg firmly on the floor, pt spouse remains at bedside. 17:55 No provider procedures requiring assistance completed. Patient transferred, IV remains ph in place. 18:03 Primary Nurse role handed off by Diane Saunders, ERI 18:03 Dionte Montiel, RN is Primary Nurse. sg Administered Medications: 16:40 Drug: Demerol 50 mg {Note: Pt. was off the unit floor for testing.} Route: IM; Site: rb1 right deltoid; 17:05 Follow up: Response: No adverse reaction; Pain is unchanged, physician notified rb1 17:25 Drug: NS 0.9% 250 ml Route: IV; Rate: 1 bolus; Site: right antecubital; rb1 17:48 Drug: Demerol 25 mg Route: IVP; Site: right wrist; sg 18:12 Drug: Zofran 4 mg Route: IVP; Site: right wrist; sg Intake: 17:54 IV: 250ml (IV Fluid); Total: 250ml. ph 17:58 PO: 0ml; Total: 250ml. sg Outcome: 17:34 ER care complete, transfer ordered by MD. rn 17:55 Instructed on the need for transfer. ph 18:02 Patient's length of stay in the Emergency Department was greater than 2 hours. sg 18:18 Transferred by helicopter to [facility], Transfer form completed. X-rays sent sg w/ patient. 18:18 Condition: stable 18:18 Patient left the ED. sg Signatures: Dispatcher [employer] EDMS Dionte Montiel, RN RN Lydia Coburn BetBoby Knox MD MD rn Attema, Lee, RN RN la1 Hall, Patricia, RN RN Diane Saunders, RN RN rb1 Corrections: (The following items were deleted from the chart) 18:02 17:46 BP 112 / 75; Pulse 65bpm; Resp 17bpm; Pulse Ox 98% RA; sg sg 18:02 17:58 BP 94 / 67; Pulse 62bpm; Resp 17bpm; Pulse Ox 98% RA; Temp 97.7F; Pain 10/10; sg sg
--- NOTE | 2018-10-07 17:34 | EDPHYS ---
Physician Documentation [facility] Name: Archie Hu Age: 58 yrs Sex: Male : 1960 Arrival Date: 10/07/2018 Time: 15:37 Bed 3 Private MD: ROSE MARIE TOWNSEND ED Physician Boby Sandy HPI: 10/07 16:07 This 58 yrs old Male presents to ER via Ambulatory with complaints of Fall rn Injury. 16:07 Details of fall: The patient fell from an upright position. Onset: The symptoms/episode rn began/occurred just prior to arrival. Associated injuries: The patient sustained injury to the chest, pain with movement, tenderness. Severity of symptoms: At their worst the symptoms were moderate, in the emergency department the symptoms are unchanged. The patient has not experienced similar symptoms in the past. Reports walking, fell while trying to pivot, landed on left side, arm tucked in and hit arm then left chest, hurts to touch and move, no sob. Also hit left side of head, on eliquis, no LOC, no vomiting. . Historical: - Allergies: 15:42 No Known Allergies; la1 - Home Meds: 15:45 Eliquis 2.5 mg oral tab 1 tab 2 times per day [Active]; metoprolol tartrate 200 mg Oral rb1 tab 1 tab once daily [Active]; clonidine HCl 0.3 mg Oral tab 1 tab daily [Active]; hydralazine 25 mg Oral tab 1 tab 2 times per day [Active]; aspirin 81 mg Oral chew 1 tab once daily [Active]; Lantus Sub-Q [Active]; Lumigan 0.01 % ophthalmic drop 1 drop daily [Active]; Trusopt 2 % Opht drop 1 drop twice a day [Active]; - PMHx: 15:42 Atrial Fib; Diabetes - IDDM; Dialysis; MWF - compliant; ESRD; Glaucoma; Hyperlipidemia; la1 - PSHx: 15:45 Bilateral BKA; Dialysis shunt left forearm; rb1 - Immunization history:: Adult Immunizations up to date. - Social history:: Smoking status: Patient/guardian denies using tobacco. - Immunization history: Last tetanus immunization: unknown. - Ebola Screening: : No symptoms or risks identified at this time. - Family history:: not pertinent. - Hospitalizations: : No recent hospitalization is reported. ROS: 16:07 Constitutional: Negative for fever, chills, and weight loss, Eyes: Negative for injury, rn pain, redness, and discharge, Neck: Negative for injury, pain, and swelling, Cardiovascular: + left chest wall pain Respiratory: Negative for shortness of breath, cough, wheezing, and pleuritic chest pain, Abdomen/GI: Negative for abdominal pain, nausea, vomiting, diarrhea, and constipation, MS/Extremity: Negative for injury and deformity, Skin: Negative for injury, rash, and discoloration, Neuro: Negative for headache, weakness, numbness, tingling, and seizure. Exam: 16:07 Constitutional: This is a well developed, well nourished patient who is awake, alert, rn and in no acute distress. Ambulatory from wheelchair to stretcher Head/Face: Normocephalic, atraumatic. Eyes: Pupils equal round and reactive to light, extra-ocular motions intact. Periorbital areas with no swelling, redness, or edema. Neck: No midline tenderness Chest/axilla: + mild tenderness left lateral/posterior chest wall, no ecchymosis, no crepitus Cardiovascular: Regular rate, No pulse deficits. Respiratory: Equal bilateral breath sounds. No increased work of breathing, no retractions or nasal flaring. Abdomen/GI: soft, non-tender MS/ Extremity: Bilateral lower extremity orthotics, no limited ROM at hips or pain Neuro: Awake and alert, GCS 15, oriented to person, place, time, and situation. Cranial nerves II-XII grossly intact. Motor strength 5/5 in all extremities. Sensory grossly intact. Cerebellar exam normal. Normal gait. Vital Signs: 15:42 BP 102 / 67; Pulse 101; Resp 18; Temp 97.4; Pulse Ox 98% on R/A; Weight 124.74 kg; la1 Height 6 ft. 1 in. (185.42 cm); Pain 10/10; 16:42 BP 106 / 87; Pulse 51; Resp 20; Pulse Ox 100% on R/A; Pain 10/10; rb1 17:00 BP 106 / 79; Pulse 86; Resp 20; Pulse Ox 100% on R/A; rb1 17:46 BP 112 / 75; Pulse 105; Resp 17; Pulse Ox 98% on R/A; sg 17:58 BP 94 / 67; Pulse 106; Resp 17; Temp 97.7; Pulse Ox 98% on R/A; Pain 10/10; sg 18:10 BP 109 / 76; Pulse 112; Resp 17; Temp 97.4; Pulse Ox 98% on R/A; Pain 7/10; sg 15:42 Body Mass Index 36.28 (124.74 kg, 185.42 cm) la1 Giacomo Coma Score: 15:45 Eye Response: spontaneous(4). Verbal Response: oriented(5). Motor Response: obeys rb1 commands(6). Total: 15. 17:30 Eye Response: spontaneous(4). Verbal Response: oriented(5). Motor Response: obeys rb1 commands(6). Total: 15. 17:48 Eye Response: spontaneous(4). Verbal Response: oriented(5). Motor Response: obeys ph commands(6). Total: 15. 17:58 Eye Response: spontaneous(4). Verbal Response: oriented(5). Motor Response: obeys sg commands(6). Total: 15. Trauma Score (Adult): 15:45 Eye Response: spontaneous(1); Verbal Response: oriented(1); Motor Response: obeys rb1 commands(2); Systolic BP: > 89 mm Hg(4); Respiratory Rate: 10 to 29 per min(4); [place] Score: 15; Trauma Score: 12 16:42 Eye Response: spontaneous(1); Verbal Response: oriented(1); Motor Response: obeys rb1 commands(2); Systolic BP: > 89 mm Hg(4); Respiratory Rate: 10 to 29 per min(4); Giacomo Score: 15; Trauma Score: 12 17:30 Eye Response: spontaneous(1); Verbal Response: oriented(1); Motor Response: obeys rb1 commands(2); Systolic BP: > 89 mm Hg(4); Respiratory Rate: 10 to 29 per min(4); Giacomo Score: 15; Trauma Score: 12 17:58 Eye Response: spontaneous(1); Verbal Response: oriented(1); Motor Response: obeys sg commands(2); Systolic BP: > 89 mm Hg(4); Respiratory Rate: 10 to 29 per min(4); [place] Score: 15; Trauma Score: 12 MDM: 15:43 Patient medically screened. rn 17:10 ED course: Paging Dr. Butler regarding small amount of hemoperitoneum. 4 rib fractures, rn no pneumothorax. stable vitals. Did not take eliquis today. . 17:12 ED course: Dr. Butler consulted, requests transfer to [facility], states cannot rn manage here without angiography and might need embolization.. 17:30 Differential diagnosis: closed head injury, contusion, fracture, laceration, sprain, rn strain, hemoperitoneum, rib fractures, pneumothorax. Data reviewed: vital signs, nurses notes, lab test result(s), radiologic studies, CT scan, plain films, and as a result, I will admit patient. Counseling: I had a detailed discussion with the patient and/or guardian regarding: the historical points, exam findings, and any diagnostic results supporting the discharge/admit diagnosis, lab results, radiology results, the need to transfer to another facility, for higher level of care. ED course: Accepted without consultation to [facility], lifeflight requested given on anticoagulation. . 18:14 ED course: Lab unable to fill FFP, life flight here, FFP not ready, told takes atleast rn 15 minutes, life flight has FFP and will ask to give en route. . 10/07 16:27 Order name: CBC with Diff; Complete Time: 17:04 rn 10/07 16:27 Order name: Basic Metabolic Panel; Complete Time: 17:29 rn 10/07 16:27 Order name: Protime (+inr); Complete Time: 17:21 rn 10/07 16:27 Order name: Ptt, Activated; Complete Time: 17:21 rn 10/07 17:41 Order name: Type And Screen hb 10/07 15:49 Order name: CT Head Brain wo Cont; Complete Time: 17:04 rn 10/07 15:49 Order name: XRAY Ribs LEFT; Complete Time: 17:21 rn 10/07 15:49 Order name: XRAY Chest Pa And Lat (2 Views); Complete Time: 17:21 rn 10/07 16:24 Order name: Chest Abd Pelvis Wo Con; Complete Time: 17:21 EDMS 10/07 16:27 Order name: IV Start; Complete Time: 16:58 rn 10/07 17:11 Order name: NPO; Complete Time: 17:37 rn Administered Medications: 16:40 Drug: Demerol 50 mg {Note: Pt. was off the unit floor for testing.} Route: IM; Site: rb1 right deltoid; 17:05 Follow up: Response: No adverse reaction; Pain is unchanged, physician notified rb1 17:25 Drug: NS 0.9% 250 ml Route: IV; Rate: 1 bolus; Site: right antecubital; rb1 17:48 Drug: Demerol 25 mg Route: IVP; Site: right wrist; sg 18:12 Drug: Zofran 4 mg Route: IVP; Site: right wrist; sg Disposition: 10/07/18 17:34 Transfer ordered to [facility]. Diagnosis are Multiple fractures of ribs, left side, Hemoperitoneum, Splenic Laceration. - Reason for transfer: Higher level of care. - Accepting physician is Dr. Maradiaga. - Condition is Stable. - Problem is new. - Symptoms have improved. Signatures: Dispatcher [employer] EDMS Dionte Montiel RN RN sg Boby Sandy MD MD rn Attema, Lee, RN RN laNiurka Hurley RN RN Diane Saunders RN RN rb1 Corrections: (The following items were deleted from the chart) 18:18 17:34 10/07/2018 17:34 Transfer ordered to [facility]. sg Diagnosis is Multiple fractures of ribs, left side; Hemoperitoneum; Splenic Laceration. Reason for transfer: Higher level of care. Accepting physician is Dr. Maradiaga. Condition is Stable. Problem is new. Symptoms have improved. rn
[2018-10-07] MEDS ORDERED: NA CHLORIDE 0.9% 0 ML ONE (17:35)
[2018-10-07] MEDS ORDERED: MEPERIDINE HCL 25 MG/0.5 ML ONE (17:57)
[2018-10-07] MEDS ORDERED: NA CHLORIDE 0.9% 250 ML ONE (18:12)
[2018-10-07] MEDS ORDERED: ONDANSETRON 4 MG/2 ML VIAL ONE (18:19)
[2018-10-07 18:29] VITALS: O2SAT 98
[2018-10-07 18:30] VITALS: BP 94/67; TEMP 97.7
--- NOTE | 2018-10-08 20:52 | EKG ---
Test Date: 2018-10-07 Test Time: 17:40:01 [place]oundsman: BLKAE MEASUREMENT RESULTS: Intervals: Rate: 98 IL: QRSD: 84 QT: 372 QTc: 474 [place]: P: IL: QRS: 18 T: 82 INTERPRETIVE STATEMENTS: Atrial fibrillation Cannot rule out Anterior infarct, age undetermined Abnormal ECG Compared to ECG 11/29/2016 08:26:23 Sinus rhythm no longer present First degree AV block no longer present Myocardial infarct finding still present Electronically Signed On 10-08-18 20:48:20 ASSEMBLY RIVETER by Marin Wiseman
== END 2018-10-07 18:18 | disposition short-term general hospital (02) ==
LOC: ER 15:34
DX: S22.42XA Multiple fractures of ribs, left side, initial encounter for closed fracture (principal); K66.1 Hemoperitoneum; S36.039A Unspecified laceration of spleen, initial encounter; W19.XXXA Unspecified fall, initial encounter; Y93.01 Activity, walking, marching and hiking; Y92.9 Unspecified place or not applicable; Z79.01 Long term (current) use of anticoagulants; Z79.4 Long term (current) use of insulin; Z79.82 Long term (current) use of aspirin; Z99.2 Dependence on renal dialysis; N18.6 End stage renal disease; E11.22 Type 2 diabetes mellitus with diabetic chronic kidney disease; I48.91 Unspecified atrial fibrillation
CPT/HCPCS: 36415; 70450; 71046; 71100; 71250; 74176; 80048; 85025; 85610; 85730; 86850 ×2; 86900; 86901; 93005; 96372; 96374; 96375; 99285; J2175 ×2; J2405

== ENCOUNTER 2019-05-03 08:16 | Inpatient (IN) | payer OTHER ==
--- OUTSIDE RECORDS SUMMARY | 2019-05-03 08:19 | XMS REPORT | Clinical Summary ---
:1960 Author Organization [facility] Address [address] [place] [address] Care Team Providers Name Role Phone Pcp, No Primary Care Provider Unavailable Allergies No Known Allergies Medications Medication Sig Dispensed Refills Start End Date Status Date metoprolol Take 200 mg by 0 Active (TOPROL-XL) 100 MG mouth daily . [address] 1 drop into 0 Active (LUMIGAN) 0.03 % both eyes 2 (two) ophthalmic drops times daily . ezetimibe (ZETIA) Take 10 mg by 0 Active 10 mg tablet mouth daily. insulin glargine Inject 50 Units 0 Active (LANTUS) 100 subcutaneously unit/mL injection nightly Use as directed-depending on glucose level. insulin aspart Inject 0 Active (NOVOLOG) 100 subcutaneously as unit/mL injection needed . sevelamer (RENVELA) Take 3,200 mg by 0 Active 800 mg tablet mouth 3 (three) times daily with meals Take 4 tabs TID w/ meals 2 TAB W/SNACKS. apixaban (ELIQUIS) Take 2.5 mg by 0 Active 2.5 mg Tab tablet mouth 2 (two) times daily. diltiazem (DILACOR Take 120 mg by 0 Active XR) 120 MG 24 hr mouth daily. capsuleIndications: Patient awaiting renal transplant cloNIDine HCl Take 0.1 mg by 0 Active (CATAPRES) 0.1 MG mouth daily as tabletIndications: needed . Patient awaiting renal transplant hydrALAZINE Take 25 mg by 0 Active (APRESOLINE) 25 MG mouth 2 (two) tablet times daily. dorzolamide Place 1 drop into 0 Active (TRUSOPT) 2 % the right eye 2 ophthalmic solution (two) times daily. aspirin 81 MG EC Take 81 mg by 0 Active tabletIndications: mouth daily. Patient awaiting renal transplant, ESRD (end stage renal disease) ([facility]), Pre-transplant evaluation for ESRD (end stage renal disease), Diabetes mellitus due to underlying condition with hyperosmolarity without coma, with long-term current use of insulin (HCC), PVD (peripheral vascular disease) ([facility]), S/P bilateral BKA (below knee amputation) ([facility]), Coronary artery disease involving [place] coronary artery of [place] heart without angina pectoris, Essential hypertension, Nonrheumatic aortic valve stenosis amiodarone Take 200 mg by 0 03/12/20 Discontinued (PACERONE) 200 MG mouth daily. 19 tablet Active Problems Patient Care Coordination Note Dr Gibbs - Cardiol Tel.#: [phone] Dr. Herndon - Neph Tel.: [phone] Problem Noted Date Awaiting transplantation of kidney 03/12/2019 Pre-transplant evaluation for ESRD (end stage renal [...] Encounters Date Type Specialty Care Team Description 04/11/2019 Hospital Encounter Cardiology Jorge Stanford MD Pre-transplant evaluation for ESRD (end stage renal disease); Atrial fibrillation, unspecified type (HCC); Nonrheumatic aortic valve stenosis 04/10/2019 Travel 03/20/2019 Orders Only Cardiology Jorge Stanford MD Pre-transplant evaluation for ESRD (end stage renal disease) (Primary Dx); Atrial fibrillation, unspecified type (HCC); Nonrheumatic aortic valve stenosis 03/19/2019 Hospital Encounter Cardiology Jorge Stanford MD Nonrheumatic aortic valve stenosis (Primary Dx); Pre-transplant evaluation for ESRD (end stage renal disease) 03/12/2019 Evaluation Transplant Kenny, Awaiting transplantation of kidney (Primary Dx); Bhamidipati Pre-transplant evaluation for ESRD (end stage renal disease) ; MD Ganesh ESRD (end stage renal disease) (HCC); Diabetes mellitus due to underlying condition with hyperosmolarity without coma, with long-term current use of insulin (HCC); PVD (peripheral vascular disease) (HCC); S/P bilateral BKA (below knee amputation) (HCC); Coronary artery disease involving [place] coronary artery of [place] heart without angina pectoris; Essential hypertension; Nonrheumatic aortic valve stenosis 03/12/2019 Orders Only Transplant Kenny, Awaiting Hepatology Sirenaamidipacaridad transplantation of MD Ganesh kidney 03/12/2019 Orders Only Cardiology Jorge Stanford MD Pre-transplant evaluation for ESRD (end stage renal disease) (Primary Dx); Nonrheumatic aortic valve stenosis 03/07/2019 Hospital Encounter Cardiology Kenny, Awaiting Adiel transplantation of MD Ganesh kidney 03/07/2019 Hospital Encounter Radiology Kenny, Awaiting Adiel transplantation of MD Ganesh kidney 03/07/2019 Documentation Transplant Iwona Peters RN 03/07/2019 Outside Orders Adiel Cox MD 03/06/2019 Travel 02/13/2019 Orders Only Sabrina Reed, Awaiting Shanice Galvez MD transplantation of kidney 01/09/2019 Documentation Transplant León, Meriam 01/09/2019 Telephone Transplant León, Meriam Appointment 01/08/2019 Telephone Transplant León, Meriam Appointment 01/07/2019 Telephone Transplant Iwona Peters RN Waitlist Maintenance 01/04/2019 Telephone Transplant Iwona Peters RN Waitlist Maintenance 11/15/2018 Orders Only Sabrina Reed, Awaiting Shanice Galvez MD transplantation of kidney 09/16/2018 Orders Only Transplant Iwona Peters RN Awaiting transplantation of kidney (Primary Dx) 08/03/2018 Abstract Transplant Iwona Peters RN 07/15/2018 Documentation Transplant Iwona Peters RN after 05/02/2018 Family History Medical History Relation Name Comments [...] Vital Sign Reading Time Taken Blood Pressure 131/70 04/11/2019 11:40 AM CDT Pulse 118 04/11/2019 11:40 AM CDT Temperature 36.8 C (98.2 F) 03/12/2019 9:31 AM CDT Respiratory Rate 15 04/11/2019 11:40 AM CDT Oxygen Saturation 96% 04/11/2019 11:40 AM CDT Inhaled Oxygen Concentration - - Weight 120.7 kg (266 lb) 03/19/2019 9:40 AM CDT Height 185.4 cm (6' 1") 03/19/2019 9:40 AM CDT Body Mass Index 35.09 03/19/2019 9:40 AM CDT Plan of Treatment Not on file Implants Implanted Type Area 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 Atrial fibrillation, unspecified type (HCC) Nonrheumatic aortic valve stenosis AB SPECIFICITY CLASS I Routine 03/12/2019 9:19 Awaiting Results for this AM CDT transplantation of procedure are in kidney the results section. HEPATITIS B SURFACE Routine 03/12/2019 9:19 Awaiting Results for this ANTIBODY AM CDT transplantation of procedure are in kidney the results section. PSA Routine 03/12/2019 9:19 Awaiting Results for this AM CDT transplantation of procedure are in kidney the results section. FLOW PRA CLASS II WITH Routine 03/12/2019 9:19 Awaiting Results for this REFLEX TO ANTIBODY AM CDT transplantation of procedure are in SPECIFICITY kidney the results section. FLOW PRA CLASS I WITH Routine 03/12/2019 9:19 Awaiting Results for this REFLEX TO ANTIBODY AM CDT transplantation of procedure are in SPECIFICITY kidney the results section. PERIPHERAL VASCULAR 03/08/2019 9:11 REPORT - SCAN PM CDT ECHOCARDIOGRAM REPORT 03/08/2019 9:10 - SCAN PM CDT STRESS ECHO Routine 03/07/2019 2:30 Awaiting Results for this PM CDT transplantation of procedure are in kidney the results section. 2D ECHO W/ DOPPLER Routine 03/07/2019 1:19 Awaiting Results for this (CW/PW/COLOR) PM CDT transplantation of procedure are in kidney the results section. US ABDOMEN COMPLETE Routine 03/07/2019 11:45 Awaiting Results for this AM CDT transplantation of procedure are in kidney the results section. AB SPECIFICITY CLASS I Routine 02/13/2019 2:31 Awaiting Results for this PM CDT transplantation of procedure are in kidney the results section. FLOW PRA CLASS II WITH Routine 02/13/2019 2:31 Awaiting Results for this REFLEX TO ANTIBODY PM CDT transplantation of procedure are in SPECIFICITY kidney the results section. FLOW PRA CLASS I WITH Routine 02/13/2019 2:31 Awaiting Results for this REFLEX TO ANTIBODY PM CDT transplantation of procedure are in SPECIFICITY kidney the results section. FLOW PRA CLASS II WITH Routine 10/18/2018 11:33 Awaiting Results for this REFLEX TO ANTIBODY AM [facility] transplantation of procedure are in SPECIFICITY kidney the results section. FLOW PRA CLASS I WITH Routine 10/18/2018 11:33 Awaiting Results for this REFLEX TO ANTIBODY AM [facility] [facility] transplantation of procedure are in SPECIFICITY kidney the results section. FLOW PRA CLASS II WITH Routine 07/16/2018 9:52 Patient awaiting renal Results for this REFLEX TO ANTIBODY AM [employer] transplant procedure are in SPECIFICITY the results section. FLOW PRA CLASS I WITH Routine 07/16/2018 9:52 Patient awaiting renal Results for this REFLEX TO ANTIBODY AM [facility] transplant procedure are in SPECIFICITY the results section. after 05/02/2018 Results ECHOCARDIOGRAM REPORT - SCAN (04/15/2019 9:28 PM CDT) Narrative Performed At Transesophageal echo (04/11/2019 8:11 AM CDT) Ejection Fraction [facility] Specimen Narrative Performed At Transesophageal Echocardiography Report (GOPAL) [facility] Demographics Patient Monse Luke of Study04/11/2019 Gender Male Visit [id number] Race Unknown Numberop Number Date of 1960 Referring PhysicianSgarett Patel MD Age 59 year(s) SonographerEvelio [facility] Teddy Interpreting Mukund Jiang MD Physician FellowKiki Rascon Procedure Type of Study GOPAL procedure:TRANSESOPHAGEAL ECHO Indications:Aortic stenosis and Atrial fibrillation. Clinical History A-FIB,CAD,DM,ESRD,HTN,KKA,HYPERCHOLESTEREMIA,PVD,M ITRAL VALVE ANNULAR CALCIFICATION Height: 73 inches Weight: 125.65 kg (277 lbs) BSA: 2.47 m^2 BMI: 36.55 kg/m^2 HR: 75 bpm BP: 103/55 mmHg Procedure Informed Consent GOPAL procedure notes The patient was counseled and informed consent was obtained. Topical and intravenous anesthesia was administered. The esophagus was intubated without difficulty. The probe was passed and all standard echocardiographic views were obtained. IV saline contrast echo examination was performed with GOPAL. The patient tolerated the procedure well. No complications were noted during or following the procedure. Moderate sedation by performing MD using 2 mg IV versed and 50 mcg IV fentanyl. . Summary 1. Moderate AoV cusp calcification and thickening. AoV cusp mobility is moderately decreased. Moderate Aortic Stenosis. Mean Gradient: 33 JENNIFER by 3D planimetry is 1.22 cm^2. Aortic valve area by continuity equation is 1.1 cm^2. Qamh-qf-xropiccf aortic regurgitation. 2. Mild mitral regurgitation. Moderate mitral annular calcification. 3. All of the LV segments contract normally . Global LV systolic function is normal. The right ventricular chamber size and systolic function are within normal limits. Signature Findings Rhythm/BPRegular sinus rhythm during the exam. 3D imaging (cpt 04643) rendering with in terpretation was performed. Left Ventricle Normal LV wall thickness. All of the LV segments co ntract normally . Global LV systolic function is no rmal. Left AtriumLA size is dqrfnhjr-tc-uvhfmvq enlarged . No LA appendage Thrombus visualized. Right VentricleThe right ventricular chamber size and systolic fu nction are within normal limits. Right Atrium RA size is normal. Atrial SeptumThe interatrial septum is adequately visualized. No rmal interatrial septum by available views. IV sa line contrast injection was negative for a PFO (p atent foramen ovale) at rest . Aortic Valve Moderate AoV cusp calcification and thickening. AoV cu sp mobility is moderately decreased. Moderate Ao rtic Stenosis. Mean Gradient: 33 AV A by 3D planimetry is 1.22 cm^2. Aortic valve ar ea by continuity equation is 1.1 cm^2. Mi rg-zk-fnjmtsmx aortic regurgitation. Mitral Valve Moderate MV leaflet thickening. Mi ld mitral regurgitation. Mo derate mitral annular calcification. Tricuspid ValveNormal TV structure and function by available views an d Doppler. Un able to estimate peak systolic PA pressure; in adequate TR velocity signal. Pulmonic Valve Normal PV structure appears normal by available vi ews. AortaAortic root size (SInus of Valsalva diameter) is no rmal . Th e aortic sinotubular junction appears normal . Mi ld plaquing and calcification in the aortic arch. PericardiumA trivial pericardial effusion is present . IVC/SVC/PA/PV/PleuralThe visualized SVC appears normal. Chambers/Structures Left Ventricle LVOT Diameter: 2.4 cm Aorta Ao Root S of Nia.: 3.02 cm Doppler/Quantitative Measurements Mitral Valve Mean Velocity: 0.76 m/s Mean Gradient: 2.41 mmHg Area (continuity): 3.42 cm^2 MV VTI: 27.85 cm MV Darius. Peak: 0.96 m/s Aortic Valve Peak Velocity: 3.81 m/s Mean Velocity: 2.7 m/s Peak Gradient: 58.07 mmHg Mean Gradient: 33.23 mmHg AV Area (continuity): 1.1 cm^2 AV VTI: 86.87 cm AV DVI: 0.24 LVOT Peak Velocity: 1.15 m/s Peak Gradient: 5.27 mmHg Mean Velocity: 0.81 m/s Mean Gradient: 2.91 mmHg LVOT Diameter: 2.4 cm LVOT VTI: 21.05 cm LVOT Area: 4.52 cm^2LVOT SV:95.18 ml LVOT CO: 7.14 l/min LVOT CI: 2.89 l/min/m^2 Procedure Note Interface, External Ris In - 04/15/2019 1:54 PM CDT Transesophageal Echocardiography Report (GOPAL) Demographics Patient Name RASHAD HU Date of Study 04/11/2019 Gender Male Visit Number [id number] Race Unknown Room Number op Number Date of 1960 Referring Physician Abdoulaye Patel MD Age 59 year(s) 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 Clinical History A-FIB,CAD,DM,ESRD,HTN,KKA,HYPERCHOLESTEREMIA,PVD,MITRAL VALVE ANNULAR CALCIFICATION Height: 73 inches Weight: 125.65 kg (277 lbs) BSA: 2.47 m^2 BMI: 36.55 kg/m^2 HR: 75 bpm BP: 103/55 mmHg Procedure Informed Consent GOPAL procedure notes The patient was counseled and informed consent was obtained. Topical and intravenous anesthesia was administered. The esophagus was intubated without difficulty. The probe was passed and all standard echocardiographic views were obtained. IV saline contrast echo examination was performed with GOPAL. The patient tolerated the procedure well. No complications were noted during or following the procedure. Moderate sedation by performing MD using 2 mg IV versed and 50 mcg IV fentanyl. . Summary 1. Moderate AoV cusp calcification and thickening. AoV cusp mobility is moderately decreased. Moderate Aortic Stenosis. Mean Gradient: 33 JENNIFER by 3D planimetry is 1.22 cm^2. Aortic valve area by continuity equation is 1.1 cm^2. Rqhg-ra-gmdyeyuz aortic regurgitation. 2. Mild mitral regurgitation. Moderate mitral annular calcification. 3. All of the LV segments contract normally . Global LV systolic function is normal. The right ventricular chamber size and systolic function are within normal limits. Signature Findings Rhythm/BP Regular sinus rhythm during the exam. 3D imaging ([facility] 0[address]) rendering with interpretation was performed. Left Ventricle Normal LV wall thickness. All of the LV segments contract normally . Global LV systolic function is normal. Left Atrium LA size is yzuquvps-st-bnrhkck enlarged . No LA appendage Thrombus visualized. Right Ventricle The right ventricular chamber size and systolic function are within normal limits. Right Atrium RA size is normal. Atrial Septum The interatrial septum is adequately visualized. Normal interatrial septum by available views. IV saline contrast injection was negative for a PFO (patent foramen ovale) at rest . Aortic Valve Moderate AoV cusp calcification and thickening. AoV cusp mobility is moderately decreased. Moderate Aortic Stenosis. Mean Gradient: 33 JENNIFER by 3D planimetry is 1.22 cm^2. Aortic valve area by continuity equation is 1.1 cm^2. Joob-js-fhjzgnrt aortic regurgitation. Mitral Valve Moderate MV leaflet thickening. Mild mitral regurgitation. Moderate mitral annular calcification. Tricuspid Valve Normal TV structure and function by available views and Doppler. Unable to estimate peak systolic PA pressure; inadequate TR velocity signal. Pulmonic Valve Normal PV structure appears normal by available views. Aorta Aortic root size (SInus of Valsalva diameter) is normal . The aortic sinotubular junction appears normal . Mild plaquing and calcification in the aortic arch. Pericardium A trivial pericardial effusion is present . IVC/SVC/PA/PV/Pleural The visualized SVC appears normal. Chambers/Structures Left Ventricle LVOT Diameter: 2.4 cm Aorta Ao Root S of Nia.: 3.02 cm Doppler/Quantitative Measurements Mitral Valve Mean Velocity: 0.76 m/s Mean Gradient: 2.41 mmHg Area (continuity): 3.42 cm^2 MV VTI: 27.85 cm MV Darius. Peak: 0.96 m/s Aortic Valve Peak Velocity: 3.81 m/s Mean Velocity: 2.7 m/s Peak Gradient: 58.07 mmHg Mean Gradient: 33.23 mmHg AV Area (continuity): 1.1 cm^2 AV VTI: 86.87 cm AV DVI: 0.24 LVOT Peak Velocity: 1.15 m/s Peak Gradient: 5.27 mmHg Mean Velocity: 0.81 m/s Mean Gradient: 2.91 mmHg LVOT Diameter: 2.4 cm LVOT VTI: 21.05 cm LVOT Area: 4.52 cm^2 LVOT SV:95.18 ml LVOT CO: 7.14 l/min LVOT CI: 2.89 l/min/m^2 Performing Organization Address City/[facility] Phone Number [facility] ECHO HEARTLAB MKCKESSON CPA FLOW PRA CLASS II WITH REFLEX TO ANTIBODY SPECIFICITY (03/12/2019 9:19 AM CDT) Only the most recent of4 resultswithin the time period is included. Flow Class II Percent Positive 0 [facility] Flow Class Report Comments [facility] Specimen Blood Narrative Performed At Disclaimer: [facility] This test was developed and its performance characteristics determined by the [facility]. It has not been cleared or [...] complexity clinical laboratory testing. Performing Organization Address City/State/[facility] Cent[facility]ode Phone Number [facility] [address], [place]: [place] [address] [id number], CLIA#[id number] CAP#[id number] UNOS#[id number] FLOW PRA CLASS I WITH REFLEX TO ANTIBODY SPECIFICITY (03/12/2019 9:19 AM CDT) Only the most recent of4 resultswithin the time period is included. Flow Class I Percent Positive 15 [facility] Flow Class Report Comments [facility] Specimen Blood Narrative Performed At Disclaimer: [facility] This test was developed and its performance characteristics determined by the [facility]. It has not been cleared or [...] complexity clinical laboratory testing. Performing Organization Address City/[facility]ode Phone Number [facility] [address], [place]: [place] [address] [id number], CLIA#[id number] CAP#[id number] UNOS#[id number] AB SPECIFICITY CLASS I (03/12/2019 9:19 AM CDT)Only the most recent of2 resultswithin the time period is included. AB Specificity Class I A:25 [facility] AB Specificity Titr Class Report MFIs > 4000 [facility] Specimen Blood Narrative Performed At Disclaimer: [facility] This test was developed and its performance characteristics determined by the [facility]. It has not been cleared or [...] testing. Performing Organization Address City/State/Zipcode Phone Number [facility] [address], [place]: [place] [address] [id number], CLIA#[id number] CAP#[id number] UNOS#[id number] Hepatitis B surface antibody (03/12/2019 9:19 AM CDT) Hep B S Ab 40.5 (H) <8.0 mIU/mL [facility] Specimen Blood Performing Organization Address City/State/Zipcode Phone Number [facility] [address] [place] [address] [place] PSA (03/12/2019 9:19 AM CDT) PSA 1.1 0.0 - 4.0 ng/mL [facility] Specimen Blood Performing Organization Address City/State/Zipcode Phone Number [facility] [address] [place] [address] [place] PERIPHERAL VASCULAR REPORT - SCAN (03/08/2019 9:11 PM CDT) Narrative Performed At ECHOCARDIOGRAM REPORT - SCAN (03/08/2019 9:10 PM CDT) Narrative Performed At Stress Echo With Tracing (03/07/2019 2:30 PM CDT) Ejection Fraction Est EF of >70% [facility] ECHO HEARTLAB MKCKESSON CPACS Specimen Narrative Performed At Stress Echocardiography Report [facility] ECHO HEARTLAB [facility] CPACS Demographics Patient Name RASHAD HU Date of Study 03/07/2019 [id number] GenderMale Visit Number [id number] Unknown [id number] Room Number Number Date of Birth1960Referring Physician Kenny Andersen Age59 year(s)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 Clinical History AFIB CAD DM ESRD HTN [place] 2004 Contrast Medium: Definity. Height: 71 inches Weight: 117.48 kg (259 lbs) BSA: 2.35 m^2 BMI: 36.12 kg/m^2 HR: 97 bpm BP: 86/42 mmHg Rest ECG atrial flutter with variable conduction, normal axis, normal intervals, no ischemic changes Stress Peak HR: 162 bpm HR BP Product: [id number] Peak BP: 104/53 mmHg Predicted HR: 161 bpm % of predicted HR: 101 Results Global LVEF (rest): Normal (LVEF >50%) Global LVEF (stress): Appears preserved ECG No ischemic changes. Arrhythmias Atrial flutter with RVR Symptoms None Summary Indications: pre surgical evaluation for organ transplantation Procedure done: Dobutamine stress echocardiogram. Complications: None Medications: Atropine: 0 mg. Dobutamine infusion with peak rate of 20 mcg/kg/min. ECG: The resting heart rate was 90 bpm. Resting electrocardiogram showed atrial flutter with variable block with no ischemic changes. The heart rate increased to 162 bpm which corresponded to 1000% maximum predicted heart rate. There were no ischemic ECG changes noted. He remained in atrial flutter. The blood pressure at baseline was 100/60 mm Hg and was 104/53 at peak stress. The patient did not develop any significant symptoms. Echocardiogram: Resting echocardiogram showed normal LV systolic function, estimated LVEF of 55%. Normal wall motion. At peak stress, the echocardiogram showed appropriate LV augmentation. Estimated LVEF of >70%. Normal wall motion. Conclusion: Normal stress echocardiogram. Stress was negative for symptoms, ischemic ECG changes, and echocardiographic changes at a diagnostic level of stress. 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 Clinical History AFIB CAD DM ESRD HTN MAC [place]NEY [place] 2005 Contrast Medium: Definity. Height: 71 inches Weight: 117.48 kg (259 lbs) BSA: 2.35 m^2 BMI: 36.12 kg/m^2 HR: 97 bpm BP: 86/42 mmHg Rest ECG atrial flutter with variable conduction, normal axis, normal intervals, no ischemic changes Stress Peak HR: 162 bpm HR BP Product: [id number] Peak BP: 104/53 mmHg Predicted HR: 161 bpm % of predicted HR: 101 Results Global LVEF (rest): Normal (LVEF >50%) Global LVEF (stress): Appears preserved ECG No ischemic changes. Arrhythmias Atrial flutter with RVR Symptoms None Summary Indications: pre surgical evaluation for organ transplantation Procedure done: Dobutamine stress echocardiogram. Complications: None Medications: Atropine: 0 mg. Dobutamine infusion with peak rate of 20 mcg/kg/min. ECG: The resting heart rate was 90 bpm. Resting electrocardiogram showed atrial flutter with variable block with no ischemic changes. The heart rate increased to 162 bpm which corresponded to 1000% maximum predicted heart rate. There were no ischemic ECG changes noted. He remained in atrial flutter. The blood pressure at baseline was 100/60 mm Hg and was 104/53 at peak stress. The patient did not develop any significant symptoms. Echocardiogram: Resting echocardiogram showed normal LV systolic function, estimated LVEF of 55%. Normal wall motion. At peak stress, the echocardiogram showed appropriate LV augmentation. Estimated LVEF of >70%. Normal wall motion. Conclusion: Normal stress echocardiogram. Stress was negative for symptoms, ischemic ECG changes, and echocardiographic changes at a diagnostic level of stress. Signature Performing Organization Address City/State/Zipcode Phone Number [facility] 2D Echo W/Doppler(CW/PW/Color) (03/07/2019 1:19 PM CDT) Ejection Fraction [facility] Specimen Narrative Performed At Transthoracic Echocardiography Report (TTE) [facility] Demographics Patient Name RASHAD HU Date of Study 03/07/2019 [id number] GenderMale Visit Number [id number] Unknown [id number] Room Number Number Date of Birth1960Referring Physician Kenny Andersen Age59 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 Clinical History AFIB CAD DM ESRD HTN [place] 2004 Height: 71 inches Weight: 117.48 kg (259 lbs) BSA: 2.35 m^2 BMI: 36.12 kg/m^2 HR: 97 bpm BP: 86/42 mmHg Summary 1. Normal LV size and function. LVEF is 60% 2. Diastology: Unable to comment due to A Fib 3. Normal RV size and function 4. Moderate . Pk / Mn: 62 / 28 mm Hg. DI=0.27 5. Unable to estimate PASP 6. No pericardial effusion Previous Study In comparison with previous study on 08/17/2017,the aortic stenosis is now moderate. Signature Findings Technical Quality: Technically adequate exam. Rhythm/BPAtrial flutter with variable ventricular response Left Ventricle The LV endocardium is adequately visualized. The le ft ventricle is chamber size (by vol index) is no rmal (male - LVED vol - 34-74ml/m2). Mild co ncentric LV hypertrophy. All of the LV segments co ntract normally . LVEF by Stanford's method of di sk assessment is normal (55-60%) . LV diastolic fu nction is indeterminate due to arrhythmia. Left AtriumLA size is severely enlarged (>48 ml/m2) . Right VentricleRV chamber size is normal . Gl obal RV systolic function is normal . Right Atrium RA size is probably normal based on available vi ews. Atrial SeptumNormal interatrial septum by available views. Aortic Valve Mild aortic regurgitation. Mi ld AoV cusp thickening and calcification. Mo derate Aortic Stenosis. Ao V resting dimensionless obstructive index (DOI) is 0.27. Ao V area at rest by continuity equation is in the ra nge of 1.2 cm2. Mitral Valve [id number] MV leaflet thickening. Mo derate mitral annular calcification. Tricuspid ValveNormal TV structure and function by available views an d Doppler. Un able to estimate peak systolic PA pressure; in adequate TR velocity signal. Pulmonic Valve Normal PV structure and function by limited views an d Doppler. A trace of pulmonary regurgitation. AortaAortic root size (SInus of Valsalva diameter) is no rmal. Th e aortic sinotubular junction appears normal. Vi sualized ascending aorta is normal. PericardiumNo significant pericardial effusion is visualized. IVC/SVC/PA/PV/PleuralThe estimated RA pressure by IVC dynamics 0-5mmHg . Chambers/Structures Left Atrium LA Volume: 128.09 mlLA Area: 33.59 cm^2 LA Vol. Index: 55 ml/m^2 Left Ventricle LVIDd: 3.42 cm LVIDs: 2.74 cm LV Septum Diastolic: 1.06 cm LV PW Diastolic: 1.2 cm LV FS: 19.9 % LVEDV Stanford's:83.48 ml LVESV Stanford's:35.01 mlLVEDVI: 36 ml/m^2 LVEF Stanford's: 58.1 %LVESV I: 15 ml/m^2 LVOT Diameter: 2.38 cm Aorta Ao Root S of Nia.: 3.35 cmAscending Aorta: 3.[address] Junction: 2.61 cm Doppler/Quantitative Measurements Mitral Valve MV Peak E-Wave: 0.98 m/sPeak Gradient: 3.87 mmHg Deceleration Time: 276.4 msec Mean Velocity: 0.6 m/sArea (continuity): 3.15 cm^2 Mean Gradient: 1.72 mmHg MV VTI: 24.72 cm MV Darius. Peak: 0.98 m/s Tissue Doppler E' Septal Velocity: 0.05 m/sE/E': 8.97 E' Lateral Velocity: 0.11 m/s Aortic Valve Peak Velocity: 3.95 m/s Mean Velocity: 2.77 m/s Peak Gradient: 62.41 mmHg Mean Gradient: 28.06 mmHg AV Area (continuity): 1.2 cm^2 AV VTI: 65.06 cm AV DVI: 0.27 LVOT Peak Velocity: 0.98 m/s Peak Gradient: 3.82 mmHg Mean Velocity: 0.77 m/s Mean Gradient: 2.61 mmHg LVOT Diameter: 2.38 cmLVOT VTI: 17.53 cm LVOT Area: 4.45 cm^2LVOT SV:77.95 ml LVOT CO: 7.56 l/min LVOT CI: 3.22 l/min/m^2 RVOT RVOT VTI (PW): 14.73 cm Pulmonic Valve Peak Velocity: 0.89 m/s Peak Gradient: 3.16 mmHg Mean Velocity: 0.66 m/s Mean Gradient: 1.76 mmHg Procedure Note Interface, External Ris In - 03/08/2019 9:18 AM CDT Transthoracic Echocardiography Report (TTE) Demographics Patient Name RASHAD HU Date of Study 03/07/2019 Gender Male Visit Number [id number] Race Unknown Room Number Number Date of 1960 Referring Physician Kenny Andersen Age 59 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 Clinical History AFIB CAD DM ESRD HTN [place] 2004 Height: 71 inches Weight: 117.48 kg (259 lbs) BSA: 2.35 m^2 BMI: 36.12 kg/m^2 HR: 97 bpm BP: 86/42 mmHg Summary 1. Normal LV size and function. LVEF is 60% 2. Diastology: Unable to comment due to A Fib 3. Normal RV size and function 4. Moderate . Pk / Mn: 62 / 28 mm Hg. DI=0.27 5. Unable to estimate PASP 6. No pericardial effusion Previous Study In comparison with previous study on 08/17/2017,the aortic stenosis is now moderate. Signature Findings Technical Quality: Technically adequate exam. Rhythm/BP Atrial flutter with variable ventricular response Left Ventricle The LV endocardium is adequately visualized. The left ventricle is chamber size (by vol index) is normal (male - LVED vol - 34-74ml/m2). Mild concentric LV hypertrophy. All of the LV segments contract normally . LVEF by Stanford's method of disk assessment is normal (55-60%) . LV diastolic function is indeterminate due to arrhythmia. Left Atrium LA size is severely enlarged (>48 ml/m2) . Right Ventricle RV chamber size is normal . Global RV systolic function is normal . Right Atrium RA size is probably normal based on available views. Atrial Septum Normal interatrial septum by available views. Aortic Valve Mild aortic regurgitation. Mild AoV cusp thickening and calcification. Moderate Aortic Stenosis. AoV resting dimensionless obstructive index (DOI) is 0.27. AoV area at rest by continuity equation is in the range of 1.2 cm2. Mitral Valve Hssd-sv-kcjmnehk MV leaflet thickening. Moderate mitral annular calcification. Tricuspid Valve Normal TV structure and function by available views and Doppler. Unable to estimate peak systolic PA pressure; inadequate TR velocity signal. Pulmonic Valve Normal PV structure and function by limited views and Doppler. A trace of pulmonary regurgitation. Aorta Aortic root size (SInus of Valsalva diameter) is normal. The aortic sinotubular junction appears normal. Visualized ascending aorta is normal. Pericardium No significant pericardial effusion is visualized. IVC/SVC/PA/PV/Pleural The estimated RA pressure by IVC dynamics 0-5mmHg . Chambers/Structures Left Atrium LA Volume: 128.09 ml LA Area: 33.59 cm^2 LA Vol. Index: 55 ml/m^2 Left Ventricle LVIDd: 3.42 cm LVIDs: 2.74 cm LV Septum Diastolic: 1.06 cm LV PW Diastolic: 1.2 cm LV FS: 19.9 % LVEDV Stanford's:83.48 ml LVESV Stanford's:35.01 ml LVEDVI: 36 ml/m^2 LVEF Stanford's: 58.1 % LVESVI: 15 ml/m^2 LVOT Diameter: 2.38 cm Aorta Ao Root S of Nia.: 3.35 cm Ascending Aorta: 3.[address] Junction: 2.61 cm Doppler/Quantitative Measurements Mitral Valve MV Peak E-Wave: 0.98 m/s Peak Gradient: 3.87 mmHg Deceleration Time: 276.4 msec Mean Velocity: 0.6 m/s Area (continuity): 3.15 cm^2 Mean Gradient: 1.72 mmHg MV VTI: 24.72 cm MV Darius. Peak: 0.98 m/s Tissue Doppler E' Septal Velocity: 0.05 m/s E/E': 8.97 E' Lateral Velocity: 0.11 m/s Aortic Valve Peak Velocity: 3.95 m/s Mean Velocity: 2.77 m/s Peak Gradient: 62.41 mmHg Mean Gradient: 28.06 mmHg AV Area (continuity): 1.2 cm^2 AV VTI: 65.06 cm AV DVI: 0.27 LVOT Peak Velocity: 0.98 m/s Peak Gradient: 3.82 mmHg Mean Velocity: 0.77 m/s Mean Gradient: 2.61 mmHg LVOT Diameter: 2.38 cm LVOT VTI: 17.53 cm LVOT Area: 4.45 cm^2 LVOT SV:77.95 ml LVOT CO: 7.56 l/min LVOT CI: 3.22 l/min/m^2 RVOT RVOT VTI (PW): 14.73 cm Pulmonic Valve Peak Velocity: 0.89 m/s Peak Gradient: 3.16 mmHg Mean Velocity: 0.66 m/s Mean Gradient: 1.76 mmHg Performing Organization Address City/State/Zipcode Phone Number [facility] US abdomen complete (03/07/2019 11:45 AM CDT) Specimen Narrative Performed At FINAL REPORT Trillian [facility] AB TECHNIQUE: Grayscale ultrasound of the abdomen. INDICATION: 59-year-old man for renal transplant evaluation. COMPARISON: Abdomen and pelvis CTA 01/08/2015, abdomen ultrasound 11/04/2014. FINDINGS: MIDLINE VASCULATURE: The visualized inferior vena cava is patent. Portal vein is patent. The maximum visualized aortic diameter is 2.3 cm. LIVER: The liver is normal in size and echogenicity with smooth contour. No focal lesions. BILIARY: Gallbladder: No gallstones or sludge. No gallbladder wall thickening, pericholecystic fluid, or distention. Negative sonographic Stanford sign. Common bile duct measures 0.4 cm, within normal limits. No intrahepatic biliary ductal dilatation. PANCREAS: The pancreas is not clearly visualized due to overlying bowel gas. SPLEEN: The spleen is prominent and measures 15.1 cm. Hypoechoic structures in the spleen measure 2 x 0.9 x 1.9 cm and 1.5 x 2 x 1.6 cm. PERITONEUM: No free fluid. KIDNEYS: The [place] right kidney measures 13.6 cm in length with cortical thickness of 0.6 cm. The [place] left kidney measures 11.8 cm in length with cortical thickness of 0.5 cm. The transplant kidney in the right lower quadrant measures 7.5 cm in length with cortical thickness of 0.5 cm. Hydronephrosis in the transplant kidney. No sonographically evident solid mass lesion. IMPRESSION: Both [place] kidneys and the transplant kidney are atrophic. Hydronephrosis in the transplant kidney. Splenomegaly. Hypoechoic structures in the spleen, not clearly identified on prior exams, are likely benign in the absence of malignancy history. These may be reassessed on follow-up imaging. Signed: Emma Weaver MD Report Verified Date/Time:03/07/2019 12:52:09 Reading Location: [address] Radiology Reading Room Procedure Note Interface, External Ris In - 03/07/2019 12:54 PM CDT FINAL REPORT TECHNIQUE: Grayscale ultrasound of the abdomen. INDICATION: 59-year-old man for renal transplant evaluation. COMPARISON: Abdomen and pelvis CTA 01/08/2015, abdomen ultrasound 11/04/2014. FINDINGS: MIDLINE VASCULATURE: The visualized inferior vena cava is patent. Portal vein is patent. The maximum visualized aortic diameter is 2.3 cm. LIVER: The liver is normal in size and echogenicity with smooth contour. No focal lesions. BILIARY: Gallbladder: No gallstones or sludge. No gallbladder wall thickening, pericholecystic fluid, or distention. Negative sonographic Stanford sign. Common bile duct measures 0.4 cm, within normal limits. No intrahepatic biliary ductal dilatation. PANCREAS: The pancreas is not clearly visualized due to overlying bowel gas. SPLEEN: The spleen is prominent and measures 15.1 cm. Hypoechoic structures in the spleen measure 2 x 0.9 x 1.9 cm and 1.5 x 2 x 1.6 cm. PERITONEUM: No free fluid. KIDNEYS: The [place] right kidney measures 13.6 cm in length with cortical thickness of 0.6 cm. The [place] left kidney measures 11.8 cm in length with cortical thickness of 0.5 cm. The transplant kidney in the right lower quadrant measures 7.5 cm in length with cortical thickness of 0.5 cm. Hydronephrosis in the transplant kidney. No sonographically evident solid mass lesion. IMPRESSION: Both [place] kidneys and the transplant kidney are atrophic. Hydronephrosis in the transplant kidney. Splenomegaly. Hypoechoic structures in the spleen, not clearly identified on prior exams, are likely benign in the absence of malignancy history. These may be reassessed on follow-up imaging. Signed: Emma Weaver MD Report Verified Date/Time: 03/07/2019 12:52:09 Reading Location: [address] Radiology Reading Room Performing Organization Address City/State/Zipcode Phone Number GE RIS after 05/02/2018 Insurance Payer Benefit Plan / Group Subscriber ID Type Phone Address MEDICARE MEDICARE A B xxxxxxxxxxx Medicare AETNA - MGD CARE AETNA SELECT US ACCESS xxxxxxxxxx HMO/POS Advance Directives For more information, please contact:[address] [phone] Code Status Date Activated Date Inactivated Comments Full Code 04/11/2019 9:53 AM 04/11/2019 11:47 AM This code status was determined by: Patient Full Code 03/19/2019 9:11 AM 03/19/2019 11:36 AM This code status was determined by: Patient Full Code 12/16/2014 7:13 AM 12/16/2014 3:37 PM This code status was determined by: Patient
--- OUTSIDE RECORDS SUMMARY | 2019-05-03 08:20 | XMS REPORT | Summary of Care ---
:1960 Author Organization [facility] [place] [address] Care Team Providers Name Role Phone System, Pcp Not In Primary Care Provider Reason for Visit Reason Comments Pre-transplant Evaluation Aortic Stenosis Encounter Details Date Type Department Care Team Description 03/12/2019 Office Visit [facility], Pre-transplant Failure Clinic Renetta Goldberg; Aortic [address], [address] [place] [address] [phone] [address] [place] [address] [phone] Allergies No Known Allergiesdocumented as of this encounter (statuses as of 04/12/2019) Medications Medication Sig Dispensed Refills Start Date End Date Status metoprolol Take 200 mg by 0 Active (TOPROL-XL) 200 MG mouth daily. XL tablet Apixaban 2.5 MG Take by mouth 0 Active TABS two times daily. clonidine Take 0.2 mg by 0 Active (CATAPRESS) 0.2 MG mouth as tablet needed. ezetimibe (ZETIA) Take 10 mg by 0 Active 10 MG tablet mouth daily. insulin aspart Inject into 0 Active (NOVOLOG) 100 the skin 3 UNIT/ML injection times daily (before meals). insulin glargine Inject into 0 Active (LANTUS) 100 the skin UNIT/ML injection nightly. bimatoprost Place into 0 Active (LUMIGAN) 0.01 % both eyes. 1 ophthalmic drop nightly solution brimonidine-timolo Place 0.3 0 Active l (COMBIGAN) Drops into 0.2-0.5 % both eyes. 1 ophthalmic drop both eyes solution bid diltiazem Take 120 mg by 0 Active (CARDIZEM CD) 120 mouth daily. MG ER capsule hydrALAZINE Take 1 Tab by 180 Tab 3 01/21/2016 Active (APRESOLINE) 25 MG mouth two tablet times daily. dorzolamide 1 Drop. 0 Active (TRUSOPT) 2 % ophthalmic solution ASPIRIN 81 OR Take by mouth 0 Active daily. LACTULOSE OR Take by mouth 0 Active as needed. aspirin 325 mg Take 81 mg by 0 03/12/2019 Discontinued tablet mouth daily. amiodarone Take 200 mg by 0 03/12/2019 Discontinued (PACERONE) 100 MG mouth daily. tablet clopidogrel Take 75 mg by 0 03/12/2019 Discontinued (PLAVIX) 75 MG mouth daily. tablet documented as of this encounter (statuses as of 04/12/2019) Active Problems Problem Noted Date Aortic stenosis 04/12/2019 ESRD (end stage renal disease) on dialysis 01/21/2016 Overview: - Secondary to DM and HTN - S/p kidney transplant on 05/18/2005 at [facility] - On HD since 07/28/14 on M, W, F - Undergoing renal transplant evaluation HTN (hypertension) 01/21/2016 DM (diabetes mellitus) 01/21/2016 A-fib 01/21/2016 Aortic regurgitation 01/21/2016 Mitral regurgitation 01/21/2016 documented as of this encounter (statuses as of 04/12/2019) Social History Tobacco Use Types Packs/Day Years Used Date Never Smoker Smokeless Tobacco: Never Used Alcohol Use Drinks/Week oz/Week Comments No Sex Assigned at Date Recorded Not on file Job Start Date Occupation Industry Not on file Not on file Not on file Travel History Travel Start Travel End No recent travel history available. documented as of this encounter Last Filed Vital Signs Vital Sign Reading Time Taken Comments Blood Pressure 104/76 03/12/2019 12:45 PM CDT Pulse 94 03/12/2019 12:45 PM CDT Temperature - - Respiratory Rate 16 03/12/2019 12:45 PM CDT Oxygen Saturation 97% 03/12/2019 12:45 PM CDT Inhaled Oxygen Concentration - - Weight 121.6 kg (268 lb) 03/12/2019 12:45 PM CDT Height 185.4 cm (6' 1") 03/12/2019 12:45 PM CDT Body Mass Index 35.36 03/12/2019 12:45 PM CDT documented in this encounter Patient Instructions Patient InstructionsAshlyn Schwarz AG-ACNP - 03/12/2019 1:00 PM CDTThank you for choosing the [facility]. 1. Please let us know what we can do better. Please provide comments on the survey you will receive.We value your feedback. 2. Return to Clinic in 6 months 3. Continue same medications 4. Labs - Lipids, CBC w/Diff, Hepatic Panel, BMP 5. Echo in 6 months 6. Call office if new symptoms occur documented in this encounter Progress Notes Ashlyn Schwarz AG-ACNP - 03/12/2019 1:00 PM CDT CHIEF COMPLAINT: Pre-Renal Transplant Evaluation RENAL ECONOMIC DEVELOPMENT DIRECTOR: Iwona Peters RN HISTORY OF PRESENT ILLNESS: Patient is a 59 years-old male with past medical history significant for end- stage renal disease secondary to diabetes mellitus and hypertension, status post kidney transplant in 2004 that lasted nine years, undergoing second renal transplant evaluation. CKD since 2002 , HD from 2002 Kidney transplant in 2004, failed in 07/2104 CKD is due to DM/ HTN On HD since 07/2014 - Mon and monday Left arm AVF 2002 Being worked up for kidney transplant - might have a donors No CP Class II SOB Dry weight 117.5 Kg Right leg trauma from accident - amputated 2008 at [facility] Left leg trauma / infection / osteomyelitis - amputated 04/2015 at [facility] Listed for kidney transplant here Doing well No events since last visit Denies chest pain or sob Compliant with diet and meds Weight stable Exercising regularly bp check wnl BP has been well controlled. Denies CP. Is interested in LAAO Echo and stress echo 02/2019 reviewed - is moderate; serial echos to monitor. PAST MEDICAL HISTORY: 1) End-stage renal disease - Secondary to DM and HTN - S/p kidney transplant on 05/18/2005 at [facility] - On HD since 07/28/14 on M, W, F - Undergoing renal transplant evaluation 2) Hypertension - Since 1998 3) Diabetes Mellitus - HbA1c 5.9, 11/13/14 4) Atrial Fibrillation - On Eliquis 5) Mitral Regurgitation - Mild, Echo 12/29/15 6) Aortic Regurgitation - Moderate, Echo 12/29/15 PAST SURGICAL HISTORY: AVF placement Kidney transplant 05/18/05 Amputation [id number] Shoulder surgery 2014 Cataract surgery 2004 Tonsillectomy 1977 CURRENT MEDICATIONS: Current Outpatient Medications Medication Sig Dispense Refill Apixaban 2.5 MG TABS Take by mouth two times daily. ASPIRIN 81 OR Take by mouth daily. bimatoprost (LUMIGAN) 0.01 % ophthalmic solution Place into both eyes. 1 drop nightly brimonidine-timolol (COMBIGAN) 0.2-0.5 % ophthalmic solution Place 0.3 Drops into both eyes. 1 drop both eyes bid clonidine (CATAPRESS) 0.2 MG tablet Take 0.2 mg by mouth as needed. diltiazem (CARDIZEM CD) 120 MG ER capsule Take 120 mg by mouth daily. dorzolamide (TRUSOPT) 2 % ophthalmic solution 1 Drop. ezetimibe (ZETIA) 10 MG tablet Take 10 mg by mouth daily. hydrALAZINE (APRESOLINE) 25 MG tablet Take 1 Tab by mouth two times daily. 180 Tab 3 insulin aspart (NOVOLOG) 100 UNIT/ML injection Inject into the skin 3 times daily (before meals). insulin glargine (LANTUS) 100 UNIT/ML injection Inject into the skin nightly. LACTULOSE OR Take by mouth as needed. metoprolol (TOPROL-XL) 200 MG XL tablet Take 200 mg by mouth daily. No current facility-administered medications for this visit. 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 HENT: Negative. Eyes: Negative. Respiratory: Negative for shortness of breath. Cardiovascular: Negative Gastrointestinal: Negative for abdominal pain. Genitourinary: Negative. Musculoskeletal: Negative. Skin: Negative. Neurological: Negative. Endo/Heme/Allergies: Negative. Psychiatric/Behavioral: Negative. PHYSICAL EXAMINATION: BP 104/76 | Pulse 94 | Resp 16 | Ht 6' 1" (1.854 m) | Wt 268 lb (121.6 kg) | SpO2 97% | BMI 35.36 kg/m B/l AKA - prosthesis General Appearance: Alert, cooperative, no distress, appears stated age Head: Normocephalic, without obvious abnormality, atraumatic Eyes: PERRL, conjunctiva/corneas clear, EOM's intact, fundi benign, both eyes Nose: Nares normal, septum midline, mucosa normal, no drainage or sinus tenderness Throat: Lips, mucosa, and tongue normal; teeth and gums normal Neck: Supple, symmetrical, trachea midline, no adenopathy; thyroid: no enlargement/tenderness/nodules; no carotid bruit JVD 10 cm Back: Symmetric, no curvature, ROM normal, no CVA tenderness Lungs: Clear to auscultation bilaterally, respirations unlabored Chest Wall: No tenderness or deformity Heart: Regular rate and rhythm, S1 and S2 normal, no murmur, rub or gallop EDM 3/6 RUSB hsm 3/6 at apex Abdomen: Soft, non-tender, bowel sounds active all four quadrants, no masses, no organomegaly Extremities: Extremities normal, atraumatic, no cyanosis or edema Pulses: 2+ and symmetric all extremities Skin: Skin color, texture, turgor normal, no rashes or lesions Psychiatry : Normal mood and Affect Lymph nodes: Cervical, supraclavicular, and axillary nodes normal Neurologic: CNII-XII intact, normal strength, sensation and reflexes throughout PERTINENT TEST RESULTS: ECHO 03/07/2019 1. Normal LV size and function. LVEF is 60% 2. Diastology: Unable to comment due to A Fib 3. Normal RV size and function 4. Moderate . Pk / Mn: 62 / 28 mm Hg. DI=0.27 5. Unable to estimate PASP 6. No pericardial effusion Previous Study In comparison with previous study on 08/17/2017,the aortic stenosis is now moderate. 02/22/2018 Mild aortic stenosis. AoV area at rest by continuity equation is in the range of 2.4 cm2 (using an LVOT 2.7 cm) AoV resting dimensionless obstructive index (DOI)=0.41 AoV resting Peak Gradient 35 mmHg AoV resting Mean Gradient 20 mmHg. AoV resting peak Velocity 3 m/s Moderate aortic regurgitation. AR vena contracta 0.4 cm. Left ventricular chamber size (by PSLAX dimension) is normal. [id number] concentric LV hypertrophy. The following segment(s) appear hypokinetic: Inferior wall and basal to mid inferoseptum. [place] not well visualized. LVEF by quantitative assessment is normal (60%). Grade 2 diastolic dysfunction (moderately increased LA pressure). LA size is severely enlarged. RA cavity size is mildly enlarged. Aortic root size (Sinus of Valsalva diameter) is normal. Proximal ascending aorta size is normal. Unable to estimate peak systolic PA pressure; inadequate TR velocity signal. The estimated RA pressure by IVC dynamics indeterminate. No prior exam available for comparison. 08/17/2017 1. The left ventricle is chamber size (by vol index) is moderately enlarged. Mild concentric LV hypertrophy. All of the LV segments contract normally. Global LV systolic function normal. LVEF by Stanford's method of disk assessment is normal (55-60%). Grade 1 diastolic dysfunction (impaired relaxation and low-normal LA pressure). LA size is severely enlarged (>48 ml/m2). 2. The right ventricular chamber size and systolic function are within normal limits. RA size is normal.Estimated peak systolic PA pressure is 25-30 mmHg . 3. [id number] aortic stenosis Mild to moderate AoV cusp thickening and calcification. AoV resting Peak/Mean Gradient of 40/ 24 mmHg. AoV resting dimensionless obstructive index (DOI) 0.3. AoV area at rest by continuity equation is in the range of 1.58 cm2. Mild aortic regurgitation. 4. Mild pulmonary regurgitation. 12/29/[address] [facility]) 11/23/14 ([facility]) 1) Estimated LVEF is >60%. Mild concentric LV hypertrophy. Normal overall LV systolic function. All segments contract normally. 2) Mitral filling pattern suggestive of impaired left ventricle relaxation. 3) Severely enlarged left atrium (>39 ml/m2) 4) Mild aortic regurgitation is present. 5) The PA systolic pressure is estimated at 25-30 mmHg. 6) There is no previous study for comparison. GOPAL 12/15/2017 1. Moderate aortic stenosis with peak/mean gradient [...] dated 08/18/2017, there is no significant change. STRESS ECHO 03/07/2019 Normal stress echocardiogram. Stress was negative for symptoms, ischemic ECG changes, and echocardiographic changes at a diagnostic level of stress. STRESS TEST 04/27/2017 02/16/16 ([facility]) 1. Normal study. 2. Appropriate pharmacologic stress. 3. Normal myocardial perfusion. 4. Lower limits of resting LV function. 5. Normal extracardiac tracer distribution. 6. No previous [facility] study for comparison. CORONARY ANGIOGRAM 12/16/14 (DR. BECKER) Left Main - patent Anterior Descending - 20-30% mid stenosis, D1 with 40% ostial stenosis Cicumflex/OM Branches - patent Right Coronary - patent 04/23/03 CTA ABDOMEN ([facility]) 01/08/15 1. The abdominal aorta is normal in course, calibre and contour. Atherosclerosis is seen. There is no evidence of acute aortic pathology, specifically, there is no dissection, intramural hematoma, or contained rupture. Quantitative dimension of the abdominal aorta are as noted. No stenosis or venous thrombosis identified in the pelvic arteries and veins. Of note, there are scattered eccentric nonobstructive calcification seen in the pelvic arteries, bilaterally. The transplant renal artery and veins are identified, connecting to the respective right external iliac artery and veins. 2. Patent mesenteric arteries. 3. Other findings as described above. The transplant kidney seen in the right iliac fossa. 11/13/2014 08:38 Cholesterol 101 Triglycerides 149 HDL 29 LDL Calculated 42 ASSESSMENT: ESRD Secondary to DM and HTN S/p kidney transplant on 05/18/2005 at [facility] Ttransplant lasted nine years Started dialysis 07/28/2014 on M, W, F Mild MR and moderate MAC Moderate LVH Dilated LA Aortic Stenosis Moderate, Echo 12/29/15 Mild to moderate 08/2017 Moderate , mild AI, Echo 03/07/2019 Mitral Regurgitation Mild, Echo 12/29/15 HTN Since 1998 DM Since 1985 HbA1c 5.9, 11/13/14 Paroxysmal AFib On Eliquis Obese Body mass index is 35.36 kg/m. PLAN: GOPAL to evaluate severity of Was on plavix for stent in left AVF - now off after one year of therapy Interested in Watchman Weight loss On Eliquis BP control Stress test in one year Echo in one year Diet and LSM Exercise counselling and daily activity Salt restricted diet Compliance with meds counselling about lifestyle HD per renal Check lipids BMP CBC and LFT in 6 months Return to clinic in 6 months Ashlyn Schwarz RN, [facility] Nurse Practitioner/Instructor Office Office direct Nurse Practitioner to Jorge Stanford MD [facility] documented in this encounter Plan of Treatment Name Type Priority Associated Diagnoses Order Schedule LIPID PANEL Lab Routine Pre-transplant evaluation Ordered: 03/12/2019 for ESRD (end stage renal disease) Hyperlipidemia, unspecified hyperlipidemia type HEPATIC FUNCTION PANEL Lab Routine Pre-transplant evaluation Ordered: 03/12 for ESRD (end stage renal disease) Hyperlipidemia, unspecified hyperlipidemia type CBC W/AUTO DIFF WITH Lab Routine Pre-transplant evaluation Ordered: 2018 PLATELETS for ESRD (end stage renal disease) BASIC METABOLIC PANEL Lab Routine Pre-transplant evaluation Ordered: 2018 for ESRD (end stage renal disease) Health Maintenance Due Date Last Done Comments COLON CANCER SCREENING: COLONOSCOPY 1960 MEDICARE AWV 1960 TETANUS SHOT (ADULT) 01/31/1975 ANNUAL DIABETIC FOOT EXAM 01/31/1978 ANNUAL DIABETIC RETINOPATHY SCREENING 01/31/1978 BMI FOLLOW UP PLAN 01/31/1978 HEPATITIS C SCREENING 01/31/1978 HIV SCREENING 01/31/1978 FLU VACCINE > 6 MONTHS 04/11/2019 documented as of this encounter Procedures Procedure Name Priority Date/Time Associated Diagnosis Comments ELECTROCARDIOGRAM Routine 03/13/2019 2:58 Pre-transplant Results for COMPLETE PM CDT evaluation for ESRD this procedure (end stage renal are in the disease) results Hyperlipidemia, section. unspecified hyperlipidemia type Atrial fibrillation, unspecified type documented in this encounter Results ELECTROCARDIOGRAM COMPLETE (03/13/2019 2:58 PM CDT) Narrative Performed At Result approved by Jorge Stanford MD on 03/13/19 documented in this encounter Visit Diagnoses Diagnosis Pre-transplant evaluation for ESRD (end stage renal disease) - Primary Other specified pre-operative examination Hyperlipidemia, unspecified hyperlipidemia type Atrial fibrillation, unspecified type Aortic valve stenosis, etiology of cardiac valve disease unspecified documented in this encounter Insurance Payer Benefit Plan / Subscriber ID Effective Dates Phone Address Type Group MEDICARE MEDICARE PART A xxxxxxxxxxx 2017-Present [address] Medicare [place] [address] [employer] OPEN ACCESS xxxxxxxxxx 2017-Present [address] POS HMO/[place]/EPO/PPO [place] [employer] [phone] documented as of this encounter
--- OUTSIDE RECORDS SUMMARY | 2019-05-03 08:20 | XMS REPORT | Summary of Care ---
:1960 Author Organization [facility] [[email or web address]] - Health Address [address] [place], [place] [address] Care Team Providers Name Role Phone Virginia Moise Primary Care Provider Eduar Cote MD Unavailable Unavailable Encounter Details Date Type Department Care Team Description 04/01/2019 Orders Only [facility] [[email or web address]] Doctor Unassigned, No [address] [place] [address] [place] [address] Allergies No Known Allergiesdocumented as of this encounter (statuses as of 04/05/2019) Medications Medication Sig Dispensed Refills Start Date End Date Status GLUCAGON 1 MG Use as directed 1 kit 1 08/04/2009 Active INJECTION during emergency KITIndications: Type II or unspecified type diabetes mellitus with renal manifestations, not stated as uncontrolled(250.40) ONE TOUCH ULTRA 2 Use daily as 1 0 12/08/2009 Active MISC KITIndications: directed Type II or unspecified type diabetes mellitus with renal manifestations, not stated as uncontrolled(250.40) calcitriol Take 1 Cap by 90 Cap 3 08/26/2013 Active (ROCALTROL) 0.25 mcg mouth daily. capsuleIndications: Kidney replaced by transplant, Edema, Type II or unspecified type diabetes mellitus with renal manifestations, not stated as uncontrolled(250.40), Hyperlipidemia, Gout, unspecified, Essential hypertension, benign, Acne, Constipation insulin aspart RAPID 16-40 units SQ AC 9 Vial 3 08/26/2013 Active (NOVOLOG) 100 unit/mL per sliding scale injectionIndications: Type II or unspecified type diabetes mellitus with renal manifestations, not stated as uncontrolled(250.40), Kidney replaced by transplant, Edema, Hyperlipidemia, Gout, unspecified, Essential hypertension, benign, Acne, Constipation insulin glargine inject 100 Units 9 Vial 3 08/26/2013 Active (LANTUS) 100 unit/mL under the skin at injectionIndications: bedtime. Type II or unspecified type diabetes mellitus with renal manifestations, not stated as uncontrolled(250.40), Kidney replaced by transplant, Edema, Hyperlipidemia, Gout, unspecified, Essential hypertension, benign, Acne, Constipation metoprolol succinate Take 1 Tab by 90 Tab 3 08/26/2013 Active XL (TOPROL XL) 200 mg mouth daily. 24 hr tabletIndications: Essential hypertension, benign, Kidney replaced by transplant, Edema, Type II or unspecified type diabetes mellitus with renal manifestations, not stated as uncontrolled(250.40), Hyperlipidemia, Gout, unspecified, Acne, Constipation bimatoprost (LUMIGAN) Place 1 Drop in 0 Active 0.01 % Drop each eye at bedtime. Both eyes sevelamer (RENVELA) Take 800 mg by 0 Active 800 mg tablet mouth 3 (three) times daily with meals. 3 tabs with meals Brimonidine-Timolol Place 1 Drop in 0 Active (COMBIGAN) 0.2-0.5 % each eye 2 (two) Drop times daily. Both eyes apixaban (ELIQUIS) Take 2.5 mg by 0 Active 2.5 mg tablet mouth 2 (two) times daily. lactulose (CEPHULAC) Take by mouth 2 0 Active 10 gram/15 mL (two) times daily solution as needed for Constipation. aspirin 81 mg EC Take 81 mg by 0 Active tablet mouth daily. ezetimibe (ZETIA) 10 Take 10 mg by 0 Active mg tablet mouth daily. polyethlene glycol Take by mouth. 0 Active (MIRALAX) powder packet diltiazem (CARTIA XT) Take 120 mg by 0 Active 120 mg 24 hr capsule mouth daily. cloniDINE 0.2 mg Take 0.3 mg by 0 Active tablet mouth at bedtime. hydralAZINE 25 mg Take 25 mg by 0 Active tablet mouth 2 (two) times daily. amiodarone 200 mg Take 200 mg by 0 Active tablet mouth daily. Insulin Use as directed. 200 Syringe 3 10/03/2017 Active Syringe-Needle U-100 Twice daily (INSULIN SYRINGE) 0.5 mL 29 gauge x 1/2" SyrgIndications: Type 2 diabetes mellitus with ESRD (end-stage renal disease), Hypoglycemia blood sugar Use as directed. 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 documented as of this encounter (statuses as of 04/05/2019) Active Problems Problem Noted Date ESRD (end stage renal disease) on dialysis 08/29/2017 ESRD (end stage renal disease) 08/25/2017 Overview: Added automatically from request for surgery [id number] Obesity (BMI 30-39.9) 12/22/2016 Afib 12/21/2015 Paroxysmal A-fib 12/20/2015 SOB (shortness of breath) 12/19/2015 ESRD on dialysis 01/21/2015 Failed kidney transplant #1 01/21/2015 Essential hypertension 08/26/2013 Overview: ICD10 Diagnosis Term Management Scientist Utility Encounter for long-term (current) use of other medications 12/17/2012 Mixed hyperlipidemia 03/07/2012 S/P BKA (below knee amputation) bilateral 04/30/2011 Gout 08/26/2010 Overview: ICD10 Diagnosis Term Management Scientist Utility Hyperlipidemia 08/26/2010 Essential hypertension, benign 03/27/2007 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 01/31/1986 documented as of this encounter (statuses as of 04/05/2019) Resolved Problems Problem Noted Date Resolved Date 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 Constipation 11/25/2010 07/09/2015 Acne 11/25/2010 07/09/2015 Type II or unspecified type diabetes mellitus with renal 12/08/20092009 manifestations, not stated as uncontrolled(250.40) Cellulitis and abscess of leg 07/02/2009 06/21/2010 Kidney replaced by transplant 05/26/2009 01/21/2015 Infectious and parasitic disease 05/20/2009 06/21/2010 Overview: ICD10 Diagnosis Term Management Scientist Utility Hypertensive heart disease without heart failure 05/02/2007 06/21/2010 Overview: Left ventricular hypertrophy ICD10 Diagnosis Term Management Scientist Utility Upper respiratory tract hypersensitivity reaction 05/02/2007 06/21/2010 Overview: ICD10 Diagnosis Term Management Scientist Utility Cardiomegaly 03/29/2007 06/21/2010 Overview: Left ventricular hypertrophy Urinary complication 03/29/2007 06/21/2010 Overview: Acute tubular necrosis ICD10 Diagnosis Term Management Scientist Utility Nonspecific abnormal results of kidney function study 03/27/2007 06/21/2010 Overview: Delayed function Hyperpotassemia 03/27/2007 06/21/2010 Edema 03/27/2007 06/21/2010 Other and unspecified diseases of upper respiratory tract 03/27/20072009 Need for prophylactic immunotherapy 05/18/2005 01/21/2015 documented as of this encounter (statuses as of 04/05/2019) Immunizations Name Administration Dates Next Due H1n1 Vaccine 10/22/2009 Influenza Virus Vaccine 10/04/2012, 06/07/2011 (Deferred: Vaccine Unavailable) Influenza Virus Vaccine (3+ yrs) 09/09/2013 Influenza Virus Vaccine Quad IM 3+ 06/30/2014 YRS Pneumococcal Polysaccharide, PPSV23 09/09/2013 (PNEUMOVAX) documented as of this encounter Social History Tobacco Use Types Packs/Day Years Used Date Never Smoker Smokeless Tobacco: Never Used Alcohol Use Drinks/Week oz/Week Comments No 0 Standard drinks or equivalent 0.0 Sex Assigned at Date Recorded Not on file Job Start Date Occupation Industry Not on file Not on file Not on file Travel History Travel Start Travel End No recent travel history available. documented as of this encounter Last Filed Vital Signs Not on filedocumented in this encounter Plan of Treatment Health Maintenance Due Date Last Done Comments EYE EXAM 01/31/1970 DTaP,Tdap,and Td Vaccines (1 - 01/31/1979 Tdap) COLONOSCOPY 01/31/2010 Zoster Recombinant Vaccine 01/31/2010 (SHINGRIX) (1 of 2) PNEUMOCOCCAL 0-64 YEARS COMBINED 09/09/2014 09/09/2013 SERIES (2 of 3 - PCV13) LDL-C 03/31/2017 03/31/2016, 06/04/2015, 03/21/2015, Additional history exists HgA1C 04/02/2018 10/03/2017, 09/15/2016, 03/31/2016, Additional history exists CREATININE (SERUM) 08/29/2018 08/29/2017, 12/15/2016, 03/31/2016, Additional history exists FOOT EXAM 10/03/2018 10/03/2017, 06/19/2017 INFLUENZA VACCINE 05/12/2019 06/30/2014, 09/09/2013, 10/04/2012 HEPATITIS C (HCV) SCREEN Completed 09/15/2016, 06/04/2015, 05/18/2005, Additional history exists documented as of this encounter Implants Implanted Type Area Laborer Shipyard Device Shelf Model / Identifier Expiration Serial / Lot Date Stent, [place] Viabahn .018 [id number] #[id number] - [id number] STENT Left: W L [place] 02/15/2020 [id number] / Implanted: Qty: 1 on 08/29/2017 by Aubrey Wiseman at [facility] Arm [id number] / NA Patch, Lemaitre Xenosure Biologic Vascular #0.8p8 - [id number] TISSUE Left: [place]aitre 06/08/2022 0.8P8 / Implanted: Qty: 1 on 12/15/2016 by Eduar Cote MD at [facility] Arm Vascular 0 / [id number] Balloon Catheter, Lutonix 130cm 4x40 Bard #[id number] - Sna Left: Bard 02/15/2020 [id number] / Implanted: Qty: 1 on 08/29/2017 by Aubrey Wiseman at [facility] Arm NA / [id number] documented as of this encounter Procedures Procedure Name Priority Date/Time Associated Diagnosis Comments CONTROLLED SUBSTANCE Routine 04/01/2019 12:01 AM PRESCRIPTION CDT documented in this encounter Results Not on filedocumented in this encounter Insurance Payer Benefit Plan / Subscriber ID Effective Dates Phone Address Type Group MEDICARE MEDICARE PART xxxxxxxxxxx 2014-Mary Carmen [phone] [address] Medicare A & B [place] 2 [id number] [place] [id number] [place] [id number] 2011-Mary Carmen [facility] documented as of this encounter Advance Directives Type Date Recorded Patient Inspector Cold Working Explanation Advance Directives and Living 07/23/2014 5:15 PM Will Power of Curriculum Advisory Teacher 07/23/2014 5:15 PM
--- OUTSIDE RECORDS SUMMARY | 2019-05-03 08:20 | XMS REPORT ---
:1960 [facility] Address [address] [place] [address] [address] [place] [address] Care Team Providers Name Role Phone THANG HARTGALINDO MARIA L Unavailable Unavailable ANGELICA GARCIAS Unavailable Unavailable SYSTEM, PROVIDER NOT IN Unavailable Unavailable Problems This patient has no known problems. Allergies, Adverse Reactions, Alerts This patient has no known allergies or adverse reactions. Medications This patient has no known medications. Results Test Description Test Time Test Comments Text Results Atomic Results Result Comments PSA 2019-03-12 11:17:00 Test Item Value Reference Range Comments PROSTATE SPECIFIC ANTIGEN (BEAKER) (test ytgu=549) 1.1 ng/mL 0.0-4.0 HEPATITIS B SURFACE [id number] 11:17:00 Test Item Value Reference Range Comments HEPATITIS B SURFACE ANTIBODY (BEAKER) (test 40.5 mIU/mL <8.0 mibz=271) U/S, ABDOMINAL, [id number] 12:52:00Reason for Exam:->screning for RCC , awaiting renal transplantFINAL REPORT TECHNIQUE: Grayscale ultrasound of the abdomen. INDICATION: 59-year-old man for renal transplant evaluation. COMPARISON: Abdomen and pelvis CTA 01/08/2015, abdomen ultrasound 11/04/2014. FINDINGS: MIDLINE VASCULATURE: The visualized inferior vena cava is patent. Portal vein is patent. The maximum visualized aortic diameter is 2.3 cm. LIVER: The liver is normal in size and echogenicity with smooth contour. No focal lesions. BILIARY:Gallbladder: No gallstones or sludge. No gallbladder wall thickening, pericholecystic fluid, or distention. Negative sonographic Murphysign.Common bile duct measures 0.4 cm, within normal limits. No intrahepatic biliary ductal dilatation. PANCREAS: The pancreas is not clearly visualized due to overlying bowel gas. SPLEEN: The spleen is prominent and measures 15.1 cm. Hypoechoic structures in the spleen measure 2 x 0.9 x 1.9 cm and 1.5 x 2 x 1.6 cm. PERITONEUM: No free fluid. KIDNEYS: The [place] right kidney measures 13.6 cm in length with cortical thickness of 0.6 cm. The [place] left kidney measures 11.8 cm in length with cortical thickness of 0.5 cm. The transplant kidney in the right lower quadrant measures 7.5 cm in length withcortical thickness of 0.5 cm. Hydronephrosis in the transplant kidney. No sonographically evident solid mass lesion. IMPRESSION:Both [place] kidneys and the transplant kidney are atrophic. Hydronephrosis in the transplant kidney. Splenomegaly. Hypoechoic structures in the spleen, not clearly identified on prior exams, are likely benign in the absence of malignancy history. These may be reassessed on follow-up imaging. Signed: Emma Tinajero MDReport Verified Date/Time: 03/07/2019 12:52:09 Reading Location: [address] Radiology Reading Room Electronically signed by: EMMA TINAJERO MD on 2018 12:52 PMFLOW PRA CLASS I AND [id number] 09:33:00 Test Item Value Reference Range Comments DATE OF SERUM (BEAKER) (test ymax=7827) [id number] SERUM # (BEAKER) (test okrb=8475) [id number] FLOW PRA CLASS I AND II (test ggqv=7292) See Scanned Report [id number] 14:03:00 Test Item Value Reference Range Comments PROSTATE SPECIFIC ANTIGEN (BEAKER) (test hhtk=170) 0.9 ng/mL 0.0-4.0 HEPATITIS B SURFACE [id number] 14:03:00 Test Item Value Reference Range Comments HEPATITIS B SURFACE ANTIBODY (BEAKER) (test 219.6 mIU/mL <8.0 prsf=652) FLOW PRA CLASS I AND [id number] 10:35:00 Test Item Value Reference Range Comments DATE OF SERUM (BEAKER) (test domd=8224) [id number] SERUM # (BEAKER) (test hubv=9620) [id number] FLOW PRA CLASS I AND II (test xsla=4671) See Scanned Report AB SPECIFICITY CLASS [id number] 14:51:00 Test Item Value Reference Range Comments DATE OF SERUM (BEAKER) (test bhag=7224) [id number] SERUM # (BEAKER) (test hhqd=8799) [id number] AB SPECIFICITY CLASS I (BEAKER) (test See Scanned Report jvbc=1670) FLOW PRA CLASS I AND [id number] 12:38:00 Test Item Value Reference Range Comments DATE OF SERUM (BEAKER) (test ncgc=3520) [id number] SERUM # (BEAKER) (test dwbf=2721) [id number] FLOW PRA CLASS I AND II (test cpus=6152) See Scanned Report AB SPECIFICITY CLASS [id number] 20:03:00 Test Item Value Reference Range Comments DATE OF SERUM (BEAKER) (test giis=4912) [id number] SERUM # (BEAKER) (test lwkl=3493) 40943 AB SPECIFICITY CLASS I (BEAKER) (test See Scanned Report txuo=9130) AB SPECIFICITY CLASS [id number] 12:38:00 Test Item Value Reference Range Comments DATE OF SERUM (BEAKER) (test wwyj=3748) [id number] SERUM # (BEAKER) (test eqkw=9293) 185478 AB SPECIFICITY CLASS I (BEAKER) (test See Scanned Report ekhf=0543) FLOW PRA CLASS I AND [id number] 13:37:00 Test Item Value Reference Range Comments DATE OF SERUM (BEAKER) (test cqit=0666) [id number] SERUM # (BEAKER) (test nljv=8853) 307330 FLOW PRA CLASS I AND II (test keka=1112) See Scanned Report FLOW PRA CLASS I AND [id number] 09:49:00 Test Item Value Reference Range Comments DATE OF SERUM (BEAKER) (test xpct=2829) [id number] SERUM # (BEAKER) (test aetq=9221) 869850 FLOW PRA CLASS I AND II (test foft=6305) See Scanned Report AB SPECIFICITY CLASS [id number] 15:29:00 Test Item Value Reference Range Comments DATE OF SERUM (BEAKER) (test zetg=8490) 03/15/17 SERUM # (BEAKER) (test ytus=1912) [id number] AB SPECIFICITY CLASS I (BEAKER) (test See Scanned Report qurd=0391) AB SPECIFICITY CLASS [id number] 14:06:00 Test Item Value Reference Range Comments DATE OF SERUM (BEAKER) (test qxsz=6970) [id number] SERUM # (BEAKER) (test qsqq=7883) 040010 AB SPECIFICITY CLASS I (BEAKER) (test See Scanned Report mrve=4655) FLOW PRA CLASS I AND [id number] 13:16:00 Test Item Value Reference Range Comments DATE OF SERUM (BEAKER) (test iizs=6711) 357953 SERUM # (BEAKER) (test rtej=5514) 044142 FLOW PRA CLASS I AND II (test wryk=3049) See Scanned Report AB SPECIFICITY CLASS [id number] 10:23:00 Test Item Value Reference Range Comments DATE OF SERUM (BEAKER) (test fxvd=8250) [id number] SERUM # (BEAKER) (test eqzo=9491) [id number] AB SPECIFICITY CLASS I (BEAKER) (test See Scanned Report uivo=7622) FLOW PRA CLASS I AND [id number] 12:53:00 Test Item Value Reference Range Comments DATE OF SERUM (BEAKER) (test wkmd=2900) [id number] SERUM # (BEAKER) (test awhg=2409) [id number] FLOW PRA CLASS I AND II (test negp=5158) See Scanned Report
--- OUTSIDE RECORDS SUMMARY | 2019-05-03 08:20 | XMS REPORT | Summary of Care ---
:1960 Author Organization [facility] Address [address] [place] [address] Care Team Providers Name Role Phone Jose MariaVirginia David Primary Care Provider Eduar Cote MD Unavailable Reason for Visit Reason Comments Intake Referral Encounter Details Date Type Department Care Team Description 03/20/2019 Telephone [facility] Transplant- [place], Intake Referral [facility] [address] [address] [place] [phone] Allergies No Known Allergiesdocumented as of this encounter (statuses as of 04/17/2019) Medications Medication Sig Dispensed Refills Start Date [...] as of this encounter (statuses as of 04/17/2019) Active Problems Problem Noted Date ESRD (end stage renal disease) on dialysis 08/29/2017 ESRD (end stage renal disease) 08/25/2017 Overview: Added automatically from request for surgery [id number] Obesity (BMI 30-39.9) 12/22/2016 Afib 12/21/2015 Paroxysmal A-fib 12/20/2015 SOB (shortness of breath) 12/19/2015 ESRD on dialysis 01/21/2015 Failed kidney transplant #1 01/21/2015 Essential hypertension 08/26/2013 Overview: ICD10 Diagnosis Term Asbestos Worker Helper Utility Encounter for long-term (current) use of other medications 12/17/2012 Mixed hyperlipidemia 03/07/2012 S/P BKA (below knee amputation) bilateral 04/30/2011 Gout 08/26/2010 Overview: ICD10 Diagnosis Term Asbestos Worker Helper Utility Hyperlipidemia 08/26/2010 Essential hypertension, benign 03/27/2007 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 01/31/1986 documented as of this encounter (statuses as of 04/17/2019) Resolved Problems Problem Noted Date Resolved Date 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 Constipation 11/25/2010 07/09/2015 Acne 11/25/2010 07/09/2015 Type II or unspecified type diabetes mellitus with renal 12/08/20092009 manifestations, not stated as uncontrolled(250.40) Cellulitis and abscess of leg 07/02/2009 06/21/2010 Kidney replaced by transplant 05/26/2009 01/21/2015 Infectious and parasitic disease 05/20/2009 06/21/2010 Overview: ICD10 Diagnosis Term Asbestos Worker Helper Utility Hypertensive heart disease without heart failure 05/02/2007 06/21/2010 Overview: Left ventricular hypertrophy ICD10 Diagnosis Term Asbestos Worker Helper Utility Upper respiratory tract hypersensitivity reaction 05/02/2007 06/21/2010 Overview: ICD10 Diagnosis Term Asbestos Worker Helper Utility Cardiomegaly 03/29/2007 06/21/2010 Overview: Left ventricular hypertrophy Urinary complication 03/29/2007 06/21/2010 Overview: Acute tubular necrosis ICD10 Diagnosis Term Asbestos Worker Helper Utility Nonspecific abnormal results of kidney function study 03/27/2007 06/21/2010 Overview: Delayed function Hyperpotassemia 03/27/2007 06/21/2010 Edema 03/27/2007 06/21/2010 Other and unspecified diseases of upper respiratory tract 03/27/20072009 Need for prophylactic immunotherapy 05/18/2005 01/21/2015 documented as of this encounter (statuses as of 04/17/2019) Immunizations Name Administration Dates Next Due H1n1 [...] filedocumented in this encounter Plan of Treatment Date Type Specialty Care Team Description 05/03/2019 Office Visit Neurology Shimon Arteaga MD [address] [place] [phone] Health Maintenance Due Date Last Done Comments [...] of this encounter Implants Implanted Type Area Assembler Wet Wash Device Shelf Model / Identifier Expiration Serial / Lot Date Stent, [place] Viabahn .018 [id number] 6fr #[id number] - [id number] STENT Left: W [place] 02/15/2020 [id number] / Implanted: Qty: 1 on 08/29/2017 by Aubrey Wiseman at [facility] Arm [id number] / MONET Patch, [facility] Xenosure Biologic Vascular #0.8p8 - [id number] TISSUE Left: Lemaitre 06/08/2022 0.8P8 / Implanted: Qty: 1 on 12/15/2016 by Eduar Cote MD at [facility] Arm Vascular 0 / [id number] Balloon Catheter, Lutonix 130cm 4x40 Bard #[id number] - Sna Left: Bard 02/15/2020 [id number] / Implanted: Qty: 1 on 08/29/2017 by Aubrey Wiseman at [facility] Arm NA / [id number] documented as of this encounter Results Not on filedocumented in this encounter Insurance Payer Benefit Plan / Subscriber ID Effective Dates Phone Address Type Group MEDICARE MEDICARE PART xxxxxxxxxxx 2014-Mary Carmen [phone] Medicare A & B nt 2 [id number] [place] [id number] AETNA AETNA O [id number] 2011-Mary Carmen [facility] documented as of this encounter Advance Directives Type Date Recorded Patient Emergency Manager Explanation Advance Directives and Living 07/23/2014 5:15 PM Will Power of Early Breastfeeding Care Specialist 07/23/2014 5:15 PM
--- OUTSIDE RECORDS SUMMARY | 2019-05-03 08:21 | XMS REPORT | Summary of Care ---
:1960 Author Organization [facility] Address [address] [place] [id number] Care Team Providers Name Role Phone Jose MariaAlexVirginia David Primary Care Provider Eduar Cote MD Unavailable Reason for Visit Reason Comments Intake Referral Appointment Encounter Details Date Type Department Care Team Description 03/20/2019 Telephone [facility] Transplant- Sadaf Moctezuma Intake Referral; Oliverio Fletcher MD Appointment Multispecialty [facility] [address] [facility] [address] [place] [id number] [phone] Allergies No Known Allergiesdocumented as of this encounter (statuses as of 04/29/2019) Medications Medication Sig Dispensed Refills Start Date [...] as of this encounter (statuses as of 04/29/2019) Active Problems Problem Noted Date ESRD (end stage renal disease) on dialysis 08/29/2017 ESRD (end stage renal disease) 08/25/2017 Overview: Added automatically from request for surgery [id number] Obesity (BMI 30-39.9) 12/22/2016 Afib 12/21/2015 Paroxysmal A-fib 12/20/2015 SOB (shortness of breath) 12/19/2015 ESRD on dialysis 01/21/2015 Failed kidney transplant #1 01/21/2015 Essential hypertension 08/26/2013 Overview: ICD10 Diagnosis 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 Encounter for long-term (current) use of other medications 12/17/2012 Mixed hyperlipidemia 03/07/2012 S/P BKA (below knee amputation) bilateral 04/30/2011 Gout 08/26/2010 Overview: ICD10 Diagnosis 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 Hyperlipidemia 08/26/2010 Essential hypertension, benign 03/27/2007 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 01/31/1986 documented as of this encounter (statuses as of 04/29/2019) Resolved Problems Problem Noted Date Resolved Date 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 Constipation 11/25/2010 07/09/2015 Acne 11/25/2010 07/09/2015 Type II or unspecified type diabetes mellitus with renal 12/08/20092009 manifestations, not stated as uncontrolled(250.40) Cellulitis and abscess of leg 07/02/2009 06/21/2010 Kidney replaced by transplant 05/26/2009 01/21/2015 Infectious and parasitic disease 05/20/2009 06/21/2010 Overview: ICD10 Diagnosis 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 Hypertensive heart disease without heart failure 05/02/2007 06/21/2010 Overview: Left ventricular hypertrophy ICD10 Diagnosis 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 Upper respiratory tract hypersensitivity reaction 05/02/2007 06/21/2010 Overview: ICD10 Diagnosis 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 Cardiomegaly 03/29/2007 06/21/2010 Overview: Left ventricular hypertrophy Urinary complication 03/29/2007 06/21/2010 Overview: Acute tubular necrosis ICD10 Diagnosis 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 Nonspecific abnormal results of kidney function study 03/27/2007 06/21/2010 Overview: Delayed function Hyperpotassemia 03/27/2007 06/21/2010 Edema 03/27/2007 06/21/2010 Other and unspecified diseases of upper respiratory tract 03/27/20072009 Need for prophylactic immunotherapy 05/18/2005 01/21/2015 documented as of this encounter (statuses as of 04/29/2019) Immunizations Name Administration Dates Next Due H1n1 [...] 05/03/2019 Office Visit Neurology Shimon Arteaga MD [address] [place] [phone] Health Maintenance Due Date Last Done [...] FOOT EXAM 10/03/2018 10/03/2017, 06/19/2017 INFLUENZA VACCINE (#1) 2019 06/30/2014, 09/09/2013, 10/04/2012 HEPATITIS C (HCV) SCREEN Completed 09/15/2016, 06/04/2015, 05/18/2005, Additional history exists documented as of this encounter Implants Implanted Type Area Machine Bookkeeper Device Shelf Model / Identifier Expiration Serial / Lot Date Stent, [place] Viabahn .018 [id number] #[id number] - [id number] STENT Left: W Chad [place] 02/15/2020 [id number] / Implanted: Qty: 1 on 08/29/2017 by Aubrey Wiseman at [facility] Arm [id number] / NA Patch, Lemaitre [employer] V[employer] #0.8p8 - [id number] Left: Lemaitre 06/08/2022 0.8P8 / Implanted: Qty: 1 on 12/15/2016 by Eduar Cote MD at [facility] Arm Vascular 0 / [id number] Balloon Catheter, Lutonix 130cm 4x40 Bard #[id number] - Sna Left: Bard 02/15/2020 [id number] / Implanted: Qty: 1 on 08/29/2017 by Aubrey Wiseman at [facility] Arm NA / [id number] documented as of this encounter Results Not on filedocumented in this encounter Insurance Payer Benefit Plan / Subscriber ID Effective Dates Phone Address Type Group MEDICARE MEDICARE PART xxxxxxxxxxx 2014-Mary Carmen [phone] [facility] Medicare A & B nt [id number] [place] [id number] AETNA AETNA O [id number] 2011-Mary Carmen [facility] nt documented as of this encounter Advance Directives Type Date Recorded Patient Over Hauler Helper Explanation Advance Directives and Living 07/23/2014 5:15 PM Will Power of Living Advisor 07/23/2014 5:15 PM
[2019-05-03] MEDS ORDERED: FENTANYL CITR 100 MCG/2 ML ONE (09:01)
[2019-05-03] MEDS ORDERED: NA CHLORIDE 0.9% 500 ML ONE (09:01)
[2019-05-03] MEDS ORDERED: FAMOTIDINE 20 MG/2 ML VIAL IV ONE (09:01)
[2019-05-03] MEDS ORDERED: ONDANSETRON 4 MG/2 ML VIAL ONE (09:01)
[2019-05-03] MEDS ORDERED: PIPER/TAZO/NS 3.375gm 3.375 GM/100 ML BAG ONE (09:02)
[2019-05-03] MEDS ORDERED: METRONIDAZOLE 500mg IVPB 500 MG/100 ML BAG IV ONE (09:02)
[2019-05-03 09:12] LABS: Basophils % 0.5 % (0-1.3); Hematocrit 34.3 % (39.6-49.0); Lymphocytes % 6.8 % (15.3-44.8); MPV 9.2 fL (7.6-11.3)
[2019-05-03 09:20] LABS: Protime INR 1.23
[2019-05-03] MEDS ORDERED: DIGOXIN 0.25 MG/ML AMP ONE (09:25)
--- NOTE | 2019-05-03 09:44 | RAD REPORT ---
EXAM DESCRIPTION: Crystal Single View05/03/2019 9:15 am CLINICAL HISTORY: Cough COMPARISON: September 2018 FINDINGS: The patient is in a poor degree of inspiration. Old left rib fractures noted. The lungs appear clear of acute infiltrate. The heart is normal size
[2019-05-03 10:10] LABS: ALT/SGPT 27 U/L (12-78); AST/SGOT 25 U/L (15-37); Albumin 3.2 g/dL (3.4-5.0); Alkaline Phosphatase 126 U/L (45-117); BUN Blood Urea Nitrogen 37 mg/dL (7-18); Bicarbonate 29 mmol/L (21-32); Bilirubin Direct 0.1 mg/dL (0-0.2); Bilirubin Total 0.6 mg/dL (0.2-1.0); Glucose Level 192 mg/dL (74-106); Lipase 212 U/L (73-393); Magnesium 2.6 mg/dL (1.8-2.4); NT PRO-BNP 22282 pg/mL (<125); Potassium 4.5 mmol/L (3.5-5.1); Protein, Total 8.1 g/dL (6.4-8.2); Sodium Level 135 mmol/L (136-145); Troponin (Emerg Dept Use Only) < 0.02 ng/mL (0.0-0.045)
[2019-05-03 10:20] LABS: Blood Morphology Comment NOT SEEN (NOT SEEN); Platelet Estimate ADEQ
[2019-05-03] MEDS ORDERED: ACETAMINOPHEN 500 MG TAB ONE (10:41)
--- NOTE | 2019-05-03 10:56 | ER ---
Nurse's Notes [facility] Name: Archie Hu Age: 59 yrs Sex: Male : 1960 Arrival Date: 05/03/2019 Time: 08:20 Bed 16 Private MD: Diagnosis: Abdominal tenderness;Fever, unspecified;Elevated white blood cell count, unspecified;End stage renal disease;Atrial fibrillation and flutter-on eliquis;Obesity, unspecified;Other and unspecified noninfective gastroenteritis and colitis Presentation: 05/03 08:38 Presenting complaint: Patient states: right lower quad. pain that started yesterday em with +N/V, was at dialysis and completed 2.5 hrs of treatment, feels like body aches and getting a cold, denies chest pain, dizziness or SOB. Transition of care: patient was not received from another setting of care. Onset of symptoms was May 02, 2019. Risk Assessment: Do you want to hurt yourself or someone else? Patient reports no desire to harm self or others. Initial Sepsis Screen: Does the patient meet any 2 criteria? Systolic BP < 90 mmHg. HR > 90 bpm. Yes Does the patient have a suspected source of infection? No. Patient's initial sepsis screen is negative. If YES to both, name of provider notified: Gerardo Gordillo MD. Care prior to arrival: None. 08:38 Method Of Arrival: Wheelchair em 08:47 Acuity: KEVON 2 ss Historical: - Allergies: 08:45 No Known Allergies; em - Home Meds: 08:45 hydralazine 10 mg oral tab 1 tab 2 times per day [Active]; Eliquis 2.5 mg Oral tab 1 em tab 2 times per day [Active]; metoprolol tartrate 200 mg Oral tab 1 tab once daily [Active]; Paxil 10 mg Oral tab [Active]; Lactulose Oral as needed [Active]; - PMHx: 08:45 Atrial Fib; Diabetes - IDDM; Dialysis; MWF - compliant; ESRD; Glaucoma; Hyperlipidemia; em - PSHx: 08:45 kacy. below the knee amputations; kidney transplant; em - Immunization history:: Adult Immunizations up to date. - Social history:: Smoking status: Patient/guardian denies using tobacco. - Ebola Screening: : Patient negative for fever greater than or equal to 101.5 degrees Fahrenheit, and additional compatible Ebola Virus Disease symptoms Patient denies exposure to infectious person Patient denies travel to an Ebola-affected area in the 21 days before illness onset No symptoms or risks identified at this time. - Family history:: not pertinent. Screenin:00 Abuse screen: Denies threats or abuse. Denies injuries from another. Nutritional jl7 screening: No deficits noted. Tuberculosis screening: No symptoms or risk factors identified. Fall Risk IV access (20 points). Total Guidry Fall Scale indicates No Risk (0-24 pts). Assessment: 08:45 General: Appears in no apparent distress. uncomfortable, ill, Behavior is calm, jl7 cooperative, appropriate for age. Pain: Complains of pain in right lower quadrant Pain currently is 10 out of 10 on a pain scale. Pain began 1 day ago. Is continuous. Neuro: Level of Consciousness is awake, alert, obeys commands, Oriented to person, place, time, situation. Cardiovascular: Denies chest pain, Heart tones S2 present Murmur present Patient's skin is warm and dry. Respiratory: Airway is patent Respiratory effort is even, unlabored, Respiratory pattern is regular, symmetrical, Breath sounds are clear bilaterally. GI: Abdomen is round non-distended, Bowel sounds present X 4 quads. Abd is soft and non tender X 4 quads. : Reports "I do not make urine." ERD notifed. EENT: No signs and/or symptoms were reported regarding the EENT system. Derm: Skin is pink, warm \\T\\ dry. Musculoskeletal: Amputation of bilateral BKA with prosthetics. 09:00 Reassessment: Pt states "My blood pressure is always real low. Sometimes they can't jl7 even find it at dialysis but I don't feel lightheaded or weak or anything.". 10:39 Reassessment: Patient appears in no apparent distress at this time. No changes from jl7 previously documented assessment. Patient and/or family updated on plan of care and expected duration. Pain level reassessed. Patient is alert, oriented x 3, equal unlabored respirations, skin warm/dry/pink. 12:00 Reassessment: Patient appears in no apparent distress at this time. Patient and/or jl7 family updated on plan of care and expected duration. Pain level reassessed. Patient is alert, oriented x 3, equal unlabored respirations, skin warm/dry/pink. Patient states feeling better. Patient states symptoms have improved. 13:00 Reassessment: Assisted pt to sitting in wheelchair for comfort, pt reports "This is jl7 much better.". Vital Signs: 08:45 BP 82 / 48; Pulse 112; Resp 20; Temp 99.2(O); Pulse Ox 100% on R/A; Height 5 ft. 10 in. em (177.80 cm); Pain 10/10; 09:00 BP 71 / 37; Pulse 118; Resp 14 S; Pulse Ox 99% on R/A; jl7 09:15 BP 94 / 55; Pulse 112; Resp 14 S; Pulse Ox 99% on R/A; jl7 10:39 BP 104 / 76; Pulse 112; Resp 14 S; Temp 99.4(O); Pulse Ox 100% on R/A; jl7 11:30 BP 97 / 65; Pulse 111; Resp 16 S; Pulse Ox 99% on R/A; jl7 12:30 BP 98 / 67; Pulse 108; Resp 16 S; Pulse Ox 99% on R/A; jl7 13:30 BP 95 / 63; Pulse 112; Resp 16 S; Pulse Ox 99% on R/A; jl7 ED Course: 08:20 Patient arrived in ED. cf2 08:32 Gerardo Gordillo MD is Attending Physician. yvrose 08:33 Krystyna Wiley, REI is Primary Nurse. jl7 08:45 Arm band placed on. em 08:47 Triage completed. ss 08:52 Inserted saline lock: 20 gauge in right forearm, using aseptic technique. Blood 3 collected. 08:52 First set of blood cultures drawn by ms. dh3 09:00 Patient has correct armband on for positive identification. Bed in low position. Call [facility] light in reach. Side rails up X2. corporate travel coordinator on. Pulse ox on. NIBP on. 09:04 Initial lab(s) drawn, by me, sent to lab. 3 09:17 XRAY Chest (1 view) In Process Unspecified. EDMS 10:11 Notified ED physician of a critical lab result(s). cre 5.79. jl7 10:48 Jesse Caraballo DO is Hospitalizing Provider. yvrose 11:02 CT Abd/Pelvis - Without Contrast In Process Unspecified. EDNH 13:40 No provider procedures requiring assistance completed. Patient admitted, IV remains in jl7 place. intact, No redness/swelling at site. Administered Medications: 09:00 Drug: NS 0.9% 500 ml Route: IV; Rate: bolus; Site: right forearm; jl7 09:45 Follow up: IV Status: Completed infusion; IV Intake: 500ml 7 09:00 Drug: Pepcid 20 mg Route: IVP; Site: right forearm; jl7 09:30 Follow up: Response: No adverse reaction 7 09:01 Not Given (Duplicate Order): Cipro 400 mg 200 ml IVPB once over 60 mins [facility] 09:05 Drug: fentaNYL (PF) 25 mcg Route: IVP; Site: right forearm; jl7 09:30 Follow up: Response: No adverse reaction; Pain is decreased 7 09:07 Drug: Zofran 4 mg Route: IVP; Site: right wrist; jl7 09:30 Follow up: Response: No adverse reaction 7 09:32 Drug: Digoxin 0.5 mg Route: IVP; Site: right forearm; jl7 10:00 Follow up: Response: No adverse reaction 7 09:40 Drug: Zosyn 3.375 grams Route: IVPB; Infused Over: 60 mins; Site: right forearm; jl7 10:40 Follow up: Response: No adverse reaction; IV Status: Completed infusion jl7 11:10 Drug: Flagyl 500 mg Volume: 100 ml; Route: IVPB; Rate: 200 ml/hr; Infused Over: 30 jl7 mins; Site: right forearm; 11:40 Follow up: Response: No adverse reaction; IV Status: Completed infusion 7 11:26 Not Given (Patient Refused): Tylenol Suppository 650 mg RI once 7 Intake: 09:45 IV: 500ml; Total: 500ml. 7 Outcome: 10:54 Decision to Hospitalize by Provider. [facility] 13:40 Admitted to Tele accompanied by tech, family with patient, via wheelchair, room 203, jl7 with chart, Report called to ERI Machuca 13:40 Condition: stable 13:40 Discharge instructions given to patient, family, Instructed on the need for admit, Demonstrated understanding of instructions. 13:47 Patient left the ED. [facility] Signatures: Dispatcher [employer] EDMS Gerardo Gordillo MD MD cha Munoz, Edgar, STATION ATTENDANT STATION ATTENDANT em Yolis Morrell, RN RN ss Krystyna Wiley RN RN jl7 Patty Sanchez [facility] Nancy Hernandez [facility] Corrections: (The following items were deleted from the chart) 08:49 08:38 Presenting complaint: Patient states: right lower quad. pain that started em yesterday with +N/V, was at dialysis and completed 2.5 hrs of treatment, feels like body aches em 13:42 13:42 GI: kathy chavez
--- NOTE | 2019-05-03 10:57 | EDPHYS ---
Physician Documentation [facility] Name: Archie Hu Age: 59 yrs Sex: Male : 1960 Arrival Date: 05/03/2019 Time: 08:20 Bed 16 Private MD: TIFF Physician Gerardo Gordillo HPI: 05/03 08:58 This 59 yrs old Male presents to ER via Wheelchair with complaints of yvrose Abdominal Pain. 08:58 The patient presents with abdominal pain in the upper abdomen, in the lower abdomen, yvrose abdominal distention in the upper abdomen, in the lower abdomen. Onset: The symptoms/episode began/occurred 2 day(s) ago. The symptoms do not radiate. Associated signs and symptoms: Pertinent positives: nausea and vomiting, fever. Modifying factors: The symptoms are alleviated by nothing, the symptoms are aggravated by movement, touching the area, walking. Severity of pain: At its worst the pain was moderate. Historical: - Allergies: 08:45 No Known Allergies; em - Home Meds: 08:45 hydralazine 10 mg oral tab 1 tab 2 times per day [Active]; Eliquis 2.5 mg Oral tab 1 em tab 2 times per day [Active]; metoprolol tartrate 200 mg Oral tab 1 tab once daily [Active]; Paxil 10 mg Oral tab [Active]; Lactulose Oral as needed [Active]; - PMHx: 08:45 Atrial Fib; Diabetes - IDDM; Dialysis; MWF - compliant; ESRD; Glaucoma; Hyperlipidemia; em - PSHx: 08:45 kacy. below the knee amputations; kidney transplant; em - Immunization history:: Adult Immunizations up to date. - Social history:: Smoking status: Patient/guardian denies using tobacco. - Ebola Screening: : Patient negative for fever greater than or equal to 101.5 degrees Fahrenheit, and additional compatible Ebola Virus Disease symptoms Patient denies exposure to infectious person Patient denies travel to an Ebola-affected area in the 21 days before illness onset No symptoms or risks identified at this time. - Family history:: not pertinent. ROS: 08:58 Constitutional: Negative for fever, chills, and weight loss, Eyes: Negative for injury, yvrose pain, redness, and discharge, ENT: Negative for injury, pain, and discharge, Neck: Negative for injury, pain, and swelling, Cardiovascular: Negative for chest pain, palpitations, and edema, Respiratory: Negative for shortness of breath, cough, wheezing, and pleuritic chest pain, Back: Negative for injury and pain, : Negative for injury, bleeding, discharge, and swelling, MS/Extremity: Negative for injury and deformity, Skin: Negative for injury, rash, and discoloration, Neuro: Negative for headache, weakness, numbness, tingling, and seizure, Psych: Negative for depression, anxiety, suicide ideation, homicidal ideation, and hallucinations, Allergy/Immunology: Negative for hives, rash, and allergies, Endocrine: Negative for neck swelling, polydipsia, polyuria, polyphagia, and marked weight changes, Hematologic/Lymphatic: Negative for swollen nodes, abnormal bleeding, and unusual bruising. 08:58 Abdomen/GI: Positive for abdominal pain, nausea and vomiting, abdominal cramps, abdominal distension, of the right lower quadrant. Exam: 08:58 Constitutional: This is a well developed, well nourished patient who is awake, alert, yvrose and in no acute distress. Head/Face: Normocephalic, atraumatic. Eyes: Pupils equal round and reactive to light, extra-ocular motions intact. Lids and lashes normal. Conjunctiva and sclera are non-icteric and not injected. Cornea within normal limits. Periorbital areas with no swelling, redness, or edema. ENT: Nares patent. No nasal discharge, no septal abnormalities noted. Tympanic membranes are normal and external auditory canals are clear. Oropharynx with no redness, swelling, or masses, exudates, or evidence of obstruction, uvula midline. Mucous membranes moist. Neck: Trachea midline, no thyromegaly or masses palpated, and no cervical lymphadenopathy. Supple, full range of motion without nuchal rigidity, or vertebral point tenderness. No Meningismus. Chest/axilla: Normal chest wall appearance and motion. Nontender with no deformity. No lesions are appreciated. Respiratory: Lungs have equal breath sounds bilaterally, clear to auscultation and percussion. No rales, rhonchi or wheezes noted. No increased work of breathing, no retractions or nasal flaring. Back: No spinal tenderness. No costovertebral tenderness. Full range of motion. Male : Normal genitalia with no discharge or lesions. Skin: Warm, dry with normal turgor. Normal color with no rashes, no lesions, and no evidence of cellulitis. MS/ Extremity: Pulses equal, no cyanosis. Neurovascular intact. Full, normal range of motion. Neuro: Awake and alert, GCS 15, oriented to person, place, time, and situation. Cranial nerves II-XII grossly intact. Motor strength 5/5 in all extremities. Sensory grossly intact. Cerebellar exam normal. Normal gait. Psych: Awake, alert, with orientation to person, place and time. Behavior, mood, and affect are within normal limits. 08:58 Cardiovascular: Rate: tachycardic, Rhythm: regular, Pulses: Pulses are 3+ in bilateral radial, brachial, femoral, popliteal, posterior tibial and and dorsalis pedis arteries.. Heart sounds: normal, Edema: is not appreciated, JVD: is not appreciated. Vital Signs: 08:45 BP 82 / 48; Pulse 112; Resp 20; Temp 99.2(O); Pulse Ox 100% on R/A; Height 5 ft. 10 in. em (177.80 cm); Pain 10/10; 09:00 BP 71 / 37; Pulse 118; Resp 14 S; Pulse Ox 99% on R/A; jl7 09:15 BP 94 / 55; Pulse 112; Resp 14 S; Pulse Ox 99% on R/A; jl7 10:39 BP 104 / 76; Pulse 112; Resp 14 S; Temp 99.4(O); Pulse Ox 100% on R/A; jl7 11:30 BP 97 / 65; Pulse 111; Resp 16 S; Pulse Ox 99% on R/A; jl7 12:30 BP 98 / 67; Pulse 108; Resp 16 S; Pulse Ox 99% on R/A; jl7 13:30 BP 95 / 63; Pulse 112; Resp 16 S; Pulse Ox 99% on R/A; jl7 MDM: 08:32 Patient medically screened. [facility] 09:00 Data reviewed: vital signs, nurses notes, lab test result(s), EKG, radiologic studies, [facility] CT scan, plain films. 05/03 08:57 Order name: Basic Metabolic Panel [facility] 05/03 08:57 Order name: CBC with Diff [facility] 05/03 08:57 Order name: LFT's [facility] 05/03 08:57 Order name: Magnesium [facility] 05/03 08:57 Order name: NT PRO-BNP [facility] 05/03 08:57 Order name: PT-INR [facility] 05/03 08:57 Order name: Troponin (emerg Dept Use Only) [facility] 05/03 08:57 Order name: Lipase; Complete Time: 10:22 [facility] 05/03 08:57 Order name: Urine Culture [facility] 05/03 08:59 Order name: Basic Metabolic Panel; Complete Time: 10:22 EDMS 05/03 08:59 Order name: CBC with Automated Diff; Complete Time: 10:22 EDMS 05/03 08:59 Order name: Liver (Hepatic) Function; Complete Time: 10:22 EDMS 05/03 08:59 Order name: Magnesium; Complete Time: 10:22 EDMS 05/03 08:59 Order name: NT PRO-BNP; Complete Time: 10:22 EDMS 05/03 08:57 Order name: XRAY Chest (1 view); Complete Time: 09:54 [facility] 05/03 08:59 Order name: Protime (+INR); Complete Time: 09:54 EDME 05/03 08:59 Order name: Troponin (Emerg Dept Use Only); Complete Time: 10:22 EDME 05/03 10:21 Order name: Manual Differential; Complete Time: 10:22 EDME 05/03 10:23 Order name: CT Abd/Pelvis - Without Contrast; Complete Time: 11:49 [facility] 05/03 08:57 Order name: EKG; Complete Time: 08:59 [facility] 05/03 08:57 Order name: Cardiac monitoring; Complete Time: 08:58 [facility] 05/03 08:57 Order name: EKG - Nurse/Tech; Complete Time: 09:04 [facility] 05/03 08:57 Order name: IV Saline Lock; Complete Time: 08:58 [facility] 05/03 08:57 Order name: Labs collected and sent; Complete Time: 09:04 [facility] 05/03 08:57 Order name: O2 Per Protocol; Complete Time: 08:58 [facility] 05/03 08:57 Order name: O2 Sat Monitoring; Complete Time: 08:59 [facility] Administered Medications: 09:00 Drug: NS 0.9% 500 ml Route: IV; Rate: bolus; Site: right forearm; jl7 09:45 Follow up: IV Status: Completed infusion; IV Intake: 500ml jl7 09:00 Drug: Pepcid 20 mg Route: IVP; Site: right forearm; jl7 09:30 Follow up: Response: No adverse reaction jl7 09:01 Not Given (Duplicate Order): Cipro 400 mg 200 ml IVPB once over 60 mins yvrose 09:05 Drug: fentaNYL (PF) 25 mcg Route: IVP; Site: right forearm; jl7 09:30 Follow up: Response: No adverse reaction; Pain is decreased jl7 09:07 Drug: Zofran 4 mg Route: IVP; Site: right wrist; jl7 09:30 Follow up: Response: No adverse reaction jl7 09:32 Drug: Digoxin 0.5 mg Route: IVP; Site: right forearm; jl7 10:00 Follow up: Response: No adverse reaction jl7 09:40 Drug: Zosyn 3.375 grams Route: IVPB; Infused Over: 60 mins; Site: right forearm; jl7 10:40 Follow up: Response: No adverse reaction; IV Status: Completed infusion jl7 11:10 Drug: Flagyl 500 mg Volume: 100 ml; Route: IVPB; Rate: 200 ml/hr; Infused Over: 30 jl7 mins; Site: right forearm; 11:40 Follow up: Response: No adverse reaction; IV Status: Completed infusion jl7 11:26 Not Given (Patient Refused): Tylenol Suppository 650 mg MD once jl7 Disposition: 05/03/19 10:54 Hospitalization ordered by Jesse Caraballo for Inpatient Admission. Preliminary diagnosis are Abdominal tenderness, Fever, unspecified, Elevated white blood cell count, unspecified, End stage renal disease, Atrial fibrillation and flutter - on eliquis, Obesity, unspecified, Other and unspecified noninfective gastroenteritis and colitis. - Bed requested for Telemetry/MedSurg (Inpatient). - Status is Inpatient Admission. jl7 - Condition is Fair. - Problem is new. - Symptoms have improved. UTI on Admission? No Signatures: Dispatcher [employer] Gerardo Morrison MD MD cha Munoz, Edgar, GLUE JOINTER FEEDER GLUE JOINTER FEEDER Krystyna Najera, RN RN jl7 Mateo Tyson RN RN ja1 Corrections: (The following items were deleted from the chart) 11:50 10:54 Hospitalization Ordered by Jesse Caraballo DO for Inpatient Admission. Preliminary yvrose diagnosis is Abdominal tenderness; Fever, unspecified; Elevated white blood cell count, unspecified; End stage renal disease; Atrial fibrillation and flutter - on eliquis; Obesity, unspecified. Bed requested for Telemetry/MedSurg (Inpatient). Status is Inpatient Admission. Condition is Fair. Problem is new. Symptoms have improved. UTI on Admission? No. yvrose 12:52 11:50 05/03/2019 10:54 Hospitalization Ordered by Jesse Caraballo DO for Inpatient ja1 Admission. Preliminary diagnosis is Abdominal tenderness; Fever, unspecified; Elevated white blood cell count, unspecified; End stage renal disease; Atrial fibrillation and flutter - on eliquis; Obesity, unspecified; Other and unspecified noninfective gastroenteritis and colitis. Bed requested for Telemetry/MedSurg (Inpatient). Status is Inpatient Admission. Condition is Fair. Problem is new. Symptoms have improved. UTI on Admission? No. yvrose 13:47 12:52 05/03/2019 10:54 Hospitalization Ordered by Jesse Caraballo DO for Inpatient jl7 Admission. Preliminary diagnosis is Abdominal tenderness; Fever, unspecified; Elevated white blood cell count, unspecified; End stage renal disease; Atrial fibrillation and flutter - on eliquis; Obesity, unspecified; Other and unspecified noninfective gastroenteritis and colitis. Bed requested for Telemetry/MedSurg (Inpatient). Status is Inpatient Admission. Condition is Fair. Problem is new. Symptoms have improved. UTI on Admission? No. ja1
--- NOTE | 2019-05-03 11:20 | RAD REPORT ---
EXAM DESCRIPTION: CT - Abdomen Pelvis Wo Contrast - 05/03/2019 11:01 am CLINICAL HISTORY: Abdominal pain, right lower quadrant pain, body aches and chills, renal transplant patient COMPARISON: CT October 07, 2018, portable chest May 03 TECHNIQUE: Axial [address] imaging of the abdomen and pelvis was performed without IV contrast. No IV contrast was given because of allergy, abnormal renal function, patient refusal or physician re quest. No oral contrast given. All CT scans are performed using dose optimization technique as appropriate and may include automated exposure control or mA/KV adjustment according to patient size. FINDINGS: No acute pleural or parenchymal process. No pericardial thickening or effusion. The liver, spleen and pancreas show no suspicious findings on non-contrast imaging. Gallbladder and b iliary tree are also without suspicious finding. [place] kidneys show substantial thinning of the cortex. Dense arterial tree calcifications. [place] re nal function cannot be assessed. Mass lesion is not suspected. The transplant kidney is present retro peritoneal lower right abdomen. This has significant cortical thinning as well and may be a non funct ioning kidney. Urinary bladder is fully contracted. No significant adrenal finding. Isodense renal m asses and pyelonephritis cannot be excluded in the absence of IV contrast. No acute stomach or small bowel finding. Terminal ileum shows no acute finding. The appendix is rachana l. There is irregular circumferential wall thickening of the cecum and proximal portion of the ascend ing colon. Stranding is seen in the surrounding fat with a trace amount of fluid in the pericolic gut ter. This is most likely a nonspecific colitis or typhlitis. Colon malignancy is not excluded. Remainder the colon shows no acute finding. No free air, free fluid, pneumatosis or other site of inf lammatory stranding. No mass or bulky lymphadenopathy. Patient has advanced degenerative change involving the lower 4 disc levels in the lumbar spine includ ing the posterior elements. Bony foraminal encroachment changes are present at the lower 3 levels. No infectious or pathologic component seen through this region. Partial compression of T10 and T11 noted. There is partial compression of T9. Bone loss changes are p resent at the T7-8 disc level which is the initial image on this study. The September 2018 CT chest det amira discitis/osteomyelitis changes in this region. It is unknown these have been addressed. Today's examination is not adequate to evaluate for any progressive bone loss or change in this region. IMPRESSION: Circumferential wall thickening and surrounding inflammatory stranding involving the cec um and proximal portion ascending colon. This is most commonly colitis or typhlitis. Malignancy canno t be excluded and can be re-evaluated with colonoscopy after medical management. There are no additional findings on this study that would elevate likelihood of malignancy over infec tious/inflammatory process of the right colon. Discitis/osteomyelitis changes are present at the T7-8 level only partially imaged on this study. Jose Enrique obregon's study is not adequate to evaluate for any changes that may have occurred since the September study . Additional findings were detailed through this region on that study and it is uncertain if the [place] ent has received and treatment. Very thin cortex of each [place] kidney likely nonfunctioning. There is significant thinning of the co rtex in a right lower abdominal transplant kidney also not likely functional. Full assessment is limited is the absence of IV contrast.
--- NOTE | 2019-05-03 12:09 | P.HP ---
Certification for Inpatient Patient admitted to: Inpatient With expected LOS: >2 Midnights Patient will require the following post-hospital care: None Practitioner: I am a practitioner with admitting privileges, knowledge of patient current condition, hospital course, and medical plan of care. Services: Services provided to patient in accordance with Admission requirements found in Title 42 Section 412.3 of the Code of Federal Regulations Patient History Date of Service: 05/03/19 Primary Care Provider: Tito Moise NP; Nephrology-Dr. López Reason for admission: Right lower quadrant abdominal pain, nausea, vomiting History of Present Illness: 59-year-old male with history of atrial fibrillation on chronic anti coagulation therapy, end-stage renal disease on hemodialysis, diabetes, hypertension, hyperlipidemia and bilateral below knee amputations. Patient presented with right lower quadrant abdominal pain with nausea and vomiting. Reports that this started yesterday after he ate some spaghetti. Overnight he had pain to the right lower quadrant. He rated the pain about a 7/ 10. He did report some chills and subjective fever. It was not achy like sensation. He went to dialysis this morning. Dialysis was held after 2-1/2 hr due to increasing pain. He denied any chest pain and shortness of breath. Patient came to the ER for further evaluation. In the ER patient evaluated. Patient initially hypotensive but the patient has history of low blood pressure after dialysis. This improved. Blood pressure now around 100 systolic. He is in atrial fibrillation. White count 14.1, hemoglobin 11.5. Platelet count 175. Total bilirubin, AST, ALT and lipase all within normal range. Sodium 135, potassium 4.5, BUN of 37, creatinine 5.7 with a GFR of 10. Glucose 192. CT scan revealed inflammation to the cecum indicating right-sided colitis. Appendix appeared normal. Patient was admitted for further treatment. Patient has been given IV antibiotic therapy in the emergency room. When I saw the patient ER, pain improved. Patient stable at this time. Patient with multiple medical problems. Patient with history of kidney transplant. It is currently nonfunctional at this time. He is currently being evaluated again for kidney transplant in the future. Patient with history of colonoscopy 5 years ago that was unremarkable. Allergies No Known Drug Allergies Allergy (Verified 07/15/15 23:37) Unknown No Known Allergies Allergy (Uncoded 11/29/16 08:10) Unknown Home medications list reviewed: Yes Home Medications: Apixaban [Eliquis *] 2.5 mg PO BID 08/15/14 Bimatoprost [Lumigan Opthalmic Drops*] 1 drop OU BEDTIME 04/08/15 Brimonidine Tartrate/Timolol [Combigan 0.2%-0.5% Eye Drops] 1 drop OU BID Sevelamer Carbonate [Renvela*] 2,400 mg PO TIDWM 05/01/15 Ezetimibe [Zetia] 10 mg PO DAILY 07/15/15 Amiodarone HCl [Cordarone Tab] 200 mg PO DAILY AFTER SUPPER 11/29/16 Aspirin [Aspirin EC 81 MG] 81 mg PO DAILY 11/29/16 Diltiazem HCl [Cartia Xt] 120 mg PO DAILY AFTER SUPPER 11/29/16 Hydralazine HCl 25 mg PO BID 11/29/16 Insulin Glargine,Hum.rec.anlog [Lantus] 50 unit SQ BID 11/29/16 Metoprolol Tartrate [Lopressor] 100 mg PO DAILY 11/29/16 PARoxetine HCl [Paxil] 10 mg PO DAILY 11/29/16 cloNIDine HCl [Catapres] 0.1 mg PO DAILY AFTER SUPPER 11/29/16 - Past Medical/Surgical History Diabetic: Yes -: DM Type 2, insulin dependent -: ESRD on Hemodialysis -: HTN -: Atrial fibrillation on anticoagulation -: Hx of osteomyelitis -: Bilateral below-knee amputations -: History of renal transplant, nonfunctional -: FAILED KIDNEY TRANSPLANT -: RIGHT AKA -: LEFT ROTATOR CUFF REPAIR -: CYST REMOVAL BUTTOCKS -: COLONOSCOPY -: left forearm dialysis fistula Psychosocial/ Personal History: Lives at home. - Family History Family History: Reviewed- Non-Contributory - Family History Father -: Heart disease, Hypertension Mother -: Diabetes - Social History Smoking Status: Never smoker Alcohol use: No CD- Drugs: No Caffeine use: Yes Place of Residence: Home Review of Systems General: Fever, Chills, Weakness, As per HPI Eyes: Unremarkable ENT: Unremarkable Respiratory: Unremarkable Cardiovascular: Unremarkable Gastrointestinal: Nausea, Vomiting, Abdominal Pain, As per HPI Genitourinary: Unremarkable Musculoskeletal: Unremarkable Integumentary: Unremarkable Neurological: Unremarkable Lymphatics: Unremarkable Physical Examination - Physical Exam General: Alert, In no apparent distress, Oriented x3, Cooperative HEENT: Atraumatic, Normocephalic, Mucous membr. moist/pink Neck: Supple, No Thyromegaly Respiratory: Clear to auscultation bilaterally, Normal air movement Cardiovascular: Irregular heart rate/rhythm (Atrial fibrillation rate around 100 ) Gastrointestinal: Normal bowel sounds, Soft and benign, Non-distended, No masses , No rebound, No guarding, Tenderness (Pain to deep palpation in the right lower quadrant) Musculoskeletal: No erythema, No tenderness, No warmth Integumentary: No tenderness/swelling, No erythema, No warmth, No cyanosis Neurological: Normal speech, Normal strength at 5/5 x4 extr, Normal tone, Normal affect, Other (Patient with bilateral below-knee prosthetics.) - Studies Laboratory Data (last 24 hrs) 05/03/19 08:52: PT 14.4 H, INR 1.23 05/03/19 08:52: WBC 14.1 H, Hgb 11.5 L, Hct 34.3 L, Plt Count 175 05/03/19 08:52: Sodium 135 L, Potassium 4.5, BUN 37 H, Creatinine 5.79 H*, Glucose 192 H, Magnesium 2.6 H, Total Bilirubin 0.6, AST 25, ALT 27, Alkaline Phosphatase 126 H, Lipase 212 Assessment and Plan - Plan Impression: Right lower quadrant abdominal pain with nausea and vomiting secondary to right- sided colitis End-stage renal disease on hemodialysis Atrial fibrillation on chronic anti coagulation therapy Hypertension Diabetes mellitus type 2, insulin dependent GERD History of renal transplant now nonfunctional History below-knee amputation now with prosthetics Plan: Right lower quadrant abdominal pain with nausea and vomiting secondary to right- sided colitis: Patient will be admitted for further evaluation and treatment. Will obtain blood cultures. Will start Cipro and Flagyl. Will have pharmacy monitor and adjust appropriately due to renal function. Will keep the patient NPO at this time. Once improved then can start clear liquid and then advanced. Will provide medication for pain and nausea. Surgery has been consulted to further evaluate and assess. Likely no need for surgical intervention at this time. Anticipate discharge in the next 3-5 days with clinical improvement. I will turn the service over to Dr. Chavez tomorrow. I will go over the plan of care with her. End-stage renal disease on hemodialysis: Nephrology will be consulted to further address his end-stage renal disease. He only got 2-1/2 hr of dialysis today. This appears stable. Patient gets dialysis every Monday, Monday and Monday. Patient also reports that he does take midodrine prior to dialysis. Will need to confirm and restart. Atrial fibrillation on chronic anti coagulation therapy: Patient currently in atrial fibrillation. Will need to review and restart home medication. Will continue with Eliquis as previous. Blood pressure was low initially. May need to further adjust dose if his medication. Hypertension: Will need to obtain and confirm his medication. Further adjustment may be required. Diabetes mellitus type 2, insulin dependent: Will place on a insulin sliding scale. Will monitor Accu-Cheks. GERD: Will provide Protonix IV. History of renal transplant now nonfunctional: Overall stable. Patient currently being re-evaluated for renal transplant in the future. History below-knee amputation now with prosthetics: Patient using prosthetics. Patient may require physical therapy Discharge Plan: Home Plan to discharge in: Greater than 2 days - Advance Directives Does patient have a Living Will: No Does patient have a Durable POA for Healthcare: No - Code Status/Comfort Care Code Status Assessed: Yes (Patient is full code) Time Spent Managing Pts Care (In Minutes): 55
[2019-05-03] MEDS ORDERED: HYDRALAZINE HCL 20 MG/ML VIAL IV PRN (13:32)
[2019-05-03] MEDS ORDERED: ONDANSETRON 4 MG/2 ML VIAL IV PRN (13:32)
[2019-05-03] MEDS ORDERED: MIDODRINE HCL 5 MG TABLET PO PRN (13:32)
[2019-05-03] MEDS ORDERED: ACETAMINOPHEN 650MG/RECT SUPP PR PRN (13:32)
[2019-05-03] MEDS ORDERED: ACETAMINOPHEN 500 MG TAB PO PRN (13:32)
[2019-05-03] MEDS ORDERED: SODIUM CHLORIDE 0.9% 10ML INJ IV PRN (13:32)
[2019-05-03 14:06] VITALS: BMI 35.3
[2019-05-03] MEDS: Ciprofloxacin 200mg IV 200 MG/100 ML IV.SOLN. IV SCH (14:53)
[2019-05-03] MEDS: METRONIDAZOLE 500mg IVPB 500 MG/100 ML BAG IV SCH (15:55)
[2019-05-03] MEDS: INSULIN -REGULAR HUMAN 50 UNIT/0.5 ML ML SQ SCH ×2 (16:30→21:00)
[2019-05-03] MEDS: APIXABAN 2.5 MG TABLET PO SCH (21:13)
[2019-05-04] MEDS: METRONIDAZOLE 500mg IVPB 500 MG/100 ML BAG IV SCH ×3 (01:12→16:53)
[2019-05-04 05:55] LABS: Absolute Lymphocytes (CBC) 0.9 K/uL (0.7-4.9); Basophils % 0.2 % (0-1.3); Lymphocytes % 12.4 % (15.3-44.8); MPV 9.3 fL (7.6-11.3); RBC Red Blood Cell Count 3.56 M/uL (4.33-5.43)
[2019-05-04 06:22] LABS: Magnesium 3.1 mg/dL (1.8-2.4); Potassium 5.1 mmol/L (3.5-5.1)
[2019-05-04] MEDS: INSULIN -REGULAR HUMAN 50 UNIT/0.5 ML ML SQ SCH ×4 (07:30→21:00)
[2019-05-04] MEDS: PANTOPRAZOLE 40 MG INJ IVP SCH (08:24)
[2019-05-04] MEDS: APIXABAN 2.5 MG TABLET PO SCH ×2 (08:24→23:54)
[2019-05-04] MEDS: Ciprofloxacin 200mg IV 200 MG/100 ML IV.SOLN. IV SCH (08:25)
[2019-05-04] MEDS ORDERED: NA CHLORIDE 0.9% 1,000 ML IV PRN ×2 (08:58→16:17)
[2019-05-04] MEDS ORDERED: ALBUMIN HUMAN 25% 50 ML IV SCH ×2 (09:00→17:00)
--- NOTE | 2019-05-04 11:03 | P.PN ---
Subjective Date of Service: 05/04/19 Primary Care Provider: Tito Moise NP; Nephrology-Dr. López Chief Complaint: Right lower quadrant abdominal pain, nausea, vomiting Subjective: Improving Patient seen and examined at bedside. No family at bedside. Chart reviewed and case discussed with nursing staff. Patient reports improvement in his abdomen. Denies any nausea, vomiting, chest pain, shortness breath, diarrhea at this time. No concerns or complaints to offer this morning. Review of Systems 10-point ROS is otherwise unremarkable Physical Examination - Vital Signs Temperature: 97.3 F Blood Pressure: 83/65 Pulse: 108 Respirations: 16 Pulse Ox (%): 99 - Physical Exam General: Alert, In no apparent distress, Oriented x3 HEENT: Atraumatic, PERRLA, EOMI Neck: Supple, JVD not distended Respiratory: Clear to auscultation bilaterally, Normal air movement Cardiovascular: Normal S1 S2, Irregular heart rate/rhythm (Atrial fibrillation) Gastrointestinal: Normal bowel sounds, No tenderness Musculoskeletal: No tenderness, Other (Prosthesis bilaterally lower extremity) Integumentary: No rashes Neurological: Normal speech, Normal tone, Normal affect Lymphatics: No axilla or inguinal lymphadenopathy Assessment And Plan - Current Problems (Diagnosis) (1) Abdominal pain Current Visit: Yes Status: Acute Plan: Secondary to right-sided colitis; improved -continue ciprofloxacin and Flagyl. Will convert to oral once tolerating p.o. diet. -cultures pending -will start clear liquid diet today as patient with improved symptoms -general surgery consulted. Likely no need for surgical intervention at this time. Qualifiers: Abdominal location: right lower quadrant Qualified Code(s): R10.31 - Right lower quadrant pain (2) ESRD (end stage renal disease) on dialysis Onset Date: 05/04/15 Current Visit: No Status: Chronic Plan: -nephrology consulted, recommendations appreciated. Anticipate dialysis session today. -patient with hemodialysis Monday, Monday, Monday. -midodrine prior to dialysis (3) A-fib Current Visit: No Status: Chronic Plan: Patient currently in atrial fibrillation. -continue Eliquis for blood thinners. -will hold metoprolol this time due to low blood pressure. Will continue to monitor vital signs. Qualifiers: Atrial fibrillation type: chronic Qualified Code(s): I48.2 - Chronic atrial fibrillation (4) Diabetes Onset Date: 05/04/15 Current Visit: No Status: Chronic Plan: Continue sliding scale insulin and Accu-Cheks. Will monitor and adjust as needed Qualifiers: Diabetes mellitus type: type 2 Diabetes mellitus director long term care insulin use: with senior care use Diabetes mellitus complication status: with kidney complications Diabetes mellitus complication detail: with other kidney complication Qualified Code(s): E11.29 - Type 2 diabetes mellitus with other diabetic kidney complication; Z79.4 - snf (current) use of insulin (5) Hypertension Current Visit: No Status: Chronic Plan: Will continue to hold blood pressure medications at this time due to hypotension. Will continue to monitor and restart home medications as tolerated. Qualifiers: Hypertension type: essential hypertension Qualified Code(s): I10 - Essential (primary) hypertension (6) Renal transplant failure and rejection Current Visit: Yes Status: Acute Plan: Overall stable. Patient currently being re-evaluated for renal transplant in the future. (7) History of left below knee amputation Current Visit: Yes Status: Acute Plan: Patient using prosthetics. Patient may require physical therapy (8) History of right below knee amputation Current Visit: No Status: Acute - Plan DVT prophylaxis: Eliquis GI prophylaxis: Protonix Diet: Clear liquid Disposition: Pending symptomatic improvement and dialysis session. Discharge Plan: Home Plan to discharge in: 72 Hours
--- NOTE | 2019-05-04 12:46 | P.CNS ---
Date of Consult: 05/04/19 Reason for Consult: ESRD Requesting Physician: Arya Chavez Primary Care Provider: Tito Moise NP; Nephrology-Dr. López Chief Complaint: Right lower quadrant abdominal pain, nausea, vomiting History of Present Illness: 59-year-old male with history of atrial fibrillation on chronic anti coagulation therapy, end-stage renal disease on hemodialysis, diabetes, hypertension, hyperlipidemia and bilateral below knee amputations. Patient presented with right lower quadrant abdominal pain with nausea and vomiting. Reports that this started yesterday after he ate some spaghetti. Overnight he had pain to the right lower quadrant. He rated the pain about a 7/ 10. He did report some chills and subjective fever. It was not achy like sensation. He went to dialysis this morning. Dialysis was held after 2-1/2 hr due to increasing pain. He denied any chest pain and shortness of breath. Patient came to the ER for further evaluation. In the ER patient evaluated. Patient initially hypotensive but the patient has history of low blood pressure after dialysis. This improved. Blood pressure now around 100 systolic. He is in atrial fibrillation. White count 14.1, hemoglobin 11.5. Platelet count 175. Total bilirubin, AST, ALT and lipase all within normal range. Sodium 135, potassium 4.5, BUN of 37, creatinine 5.7 with a GFR of 10. Glucose 192. CT scan revealed inflammation to the cecum indicating right-sided colitis. Appendix appeared normal. Patient was admitted for further treatment. Patient has been given IV antibiotic therapy in the emergency room. 08:58 This 59 yrs old Male presents to ER via Wheelchair with complaints of yvrose Abdominal Pain. 08:58 The patient presents with abdominal pain in the upper abdomen, in the lower abdomen, yvrose abdominal distention in the upper abdomen, in the lower abdomen. Onset: The symptoms/episode began/occurred 2 day(s) ago. The symptoms do not radiate. Associated signs and symptoms: Pertinent positives: nausea and vomiting, fever. Modifying factors: The symptoms are alleviated by nothing, the symptoms are aggravated by movement, touching the area, walking. Severity of pain: At its worst the pain was moderate. Allergies No Known Allergies Allergy (Uncoded 05/03/19 15:13) Unknown Home medications list reviewed: Yes Home Medications: Apixaban [Eliquis *] 2.5 mg PO BID 08/15/14 Bimatoprost [Lumigan Opthalmic Drops*] 1 drop OU BEDTIME 04/08/15 Brimonidine Tartrate/Timolol [Combigan 0.2%-0.5% Eye Drops] 1 drop OU BID Sevelamer Carbonate [Renvela*] 2,400 mg PO TIDWM 05/01/15 Ezetimibe [Zetia] 10 mg PO DAILY 07/15/15 Aspirin [Aspirin EC 81 MG] 81 mg PO DAILY 11/29/16 Diltiazem HCl [Cartia Xt] 120 mg PO DAILY AFTER SUPPER 11/29/16 Hydralazine HCl 25 mg PO BID 11/29/16 Insulin Glargine,Hum.rec.anlog [Lantus] 50 unit SQ BEDTIME 11/29/16 Metoprolol Tartrate [Lopressor] 100 mg PO DAILY 11/29/16 PARoxetine HCl [Paxil] 10 mg PO DAILY 11/29/16 cloNIDine HCl [Catapres] 0.1 mg PO DAILY AFTER SUPPER 11/29/16 Dorzolamide [Trusopt 2%*] 1 drop EACH EYE BID 05/03/19 Lactulose 15 mg PO DAILY PRN 05/03/19 - Past Medical/Surgical History Diabetic: Yes -: DM Type 2, insulin dependent -: ESRD on Hemodialysis -: HTN -: Atrial fibrillation on anticoagulation -: Hx of osteomyelitis -: Bilateral below-knee amputations -: History of renal transplant, nonfunctional -: FAILED KIDNEY TRANSPLANT -: RIGHT AKA -: LEFT ROTATOR CUFF REPAIR -: CYST REMOVAL BUTTOCKS -: COLONOSCOPY -: left forearm dialysis fistula Psychosocial/ Personal History: Lives at home. - Family History Father Medical History: Heart disease, Hypertension Mother Medical History: Diabetes - Social History Alcohol use: No CD- Drugs: No Caffeine use: Yes Place of Residence: Home Review of Systems 10-point ROS is otherwise unremarkable Gastrointestinal: Abdominal Pain, Diarrhea Physical Examination Temp Pulse Resp BP Pulse Ox 96.9 F 72 16 98/56 L 97 05/04/19 12:00 05/04/19 12:00 05/04/19 12:00 05/04/19 12:00 05/04/19 12:00 General: Oriented x3, Cooperative HEENT: Atraumatic Neck: Supple Respiratory: Clear to auscultation bilaterally Cardiovascular: Regular rate/rhythm, Edema Gastrointestinal: Soft and benign, Non-distended, No guarding, Tenderness Musculoskeletal: No clubbing, No contractures Integumentary: No rashes, No cyanosis Neurological: Normal speech Blood work reviewed in the chart. Na 136; K 5.1; BUN 48 Imagings Data: EXAM DESCRIPTION: CT - Abdomen Pelvis Wo Contrast - 05/03/2019 11:01 am CLINICAL HISTORY: Abdominal pain, right lower quadrant pain, body aches and chills, renal transplant patient COMPARISON: CT October 07, 2018, portable chest May 03 TECHNIQUE: Axial [address] imaging of the abdomen and pelvis was performed without IV contrast. No IV contrast was given because of allergy, abnormal renal function, patient refusal or physician request. No oral contrast given. All CT scans are performed using dose optimization technique as appropriate and may include automated exposure control or mA/KV adjustment according to patient size. FINDINGS: No acute pleural or parenchymal process. No pericardial thickening or effusion. The liver, spleen and pancreas show no suspicious findings on non-contrast imaging. Gallbladder and biliary tree are also without suspicious finding. [place] kidneys show substantial thinning of the cortex. Dense arterial tree calcifications. [place] renal function cannot be assessed. Mass lesion is not suspected. The transplant kidney is present retroperitoneal lower right abdomen. This has significant cortical thinning as well and may be a non functioning kidney. Urinary bladder is fully contracted. No significant adrenal finding. Isodense renal masses and pyelonephritis cannot be excluded in the absence of IV contrast. No acute stomach or small bowel finding. Terminal ileum shows no acute finding. The appendix is normal. There is irregular circumferential wall thickening of the cecum and proximal portion of the ascending colon. Stranding is seen in the surrounding fat with a trace amount of fluid in the pericolic gutter. This is most likely a nonspecific colitis or typhlitis. Colon malignancy is not excluded. Remainder the colon shows no acute finding. No free air, free fluid, pneumatosis or other site of inflammatory stranding. No mass or bulky lymphadenopathy. Patient has advanced degenerative change involving the lower 4 disc levels in the lumbar spine including the posterior elements. Bony foraminal encroachment changes are present at the lower 3 levels. No infectious or pathologic component seen through this region. Partial compression of T10 and T11 noted. There is partial compression of T9. Bone loss changes are present at the T7-8 disc level which is the initial image on this study. The September 2018 CT chest detailed discitis/osteomyelitis changes in this region. It is unknown these have been addressed. Today's examination is not adequate to evaluate for any progressive bone loss or change in this region. IMPRESSION: Circumferential wall thickening and surrounding inflammatory stranding involving the cecum and proximal portion ascending colon. This is most commonly colitis or typhlitis. Malignancy cannot be excluded and can be re- evaluated with colonoscopy after medical management. There are no additional findings on this study that would elevate likelihood of malignancy over infectious/inflammatory process of the right colon. Discitis/osteomyelitis changes are present at the T7-8 level only partially imaged on this study. Today's study is not adequate to evaluate for any changes that may have occurred since the September study. Additional findings were detailed through this region on that study and it is uncertain if the patient has received and treatment. Very thin cortex of each [place] kidney likely nonfunctioning. There is significant thinning of the cortex in a right lower abdominal transplant kidney also not likely functional. Full assessment is limited is the absence of IV contrast. EXAM DESCRIPTION: RADChest Single View05/03/2019 9:15 am CLINICAL HISTORY: Cough COMPARISON: September 2018 FINDINGS: The patient is in a poor degree of inspiration. Old left rib fractures noted. The lungs appear clear of acute infiltrate. The heart is normal size Conclusions/Impression: A/ ESRD on HD. Chronic hypotension on midodrine. Diastolic CHF, chronic. DM II with CKD. Anemia in CKD. TERENCE/ Secondary HyperPTH. Acute diverticulitis of the colon. P/ Continue current POC and Medications. Arrange for acute HD today. Restart home medications as indicated. Continue abx. Advance diet as tolerated. No NSAIDs. AM labs. Daily weight. Thank you kindly for the consultation.
--- NOTE | 2019-05-04 15:51 | EKG ---
Test Date: 2019-05-03 Test Time: 09:02:33 Lunchroom Aide: BRYANNA MEASUREMENT RESULTS: Intervals: Rate: 122 [place]: QRSD: 80 QT: 328 QTc: 467 [place]: P: [place]: QRS: 14 T: 87 INTERPRETIVE STATEMENTS: Atrial fibrillation with rapid ventricular response with premature ventricular or aberrantly conducted complexes Abnormal ECG Compared to ECG 10/07/2018 17:40:01 Ventricular premature complex(es) now present Myocardial infarct finding no longer present Electronically Signed On 05-04-19 15:50:43 CDT by Robert Coelho
[2019-05-04] MEDS ORDERED: MANNITOL 25% 12.5 GM/50 ML VIAL IV PRN (16:17)
[2019-05-04] MEDS: MANNITOL 25% 12.5 GM/50 ML VIAL IV PRN ×2 (19:24→19:35)
[2019-05-05] MEDS: METRONIDAZOLE 500mg IVPB 500 MG/100 ML BAG IV SCH ×3 (01:03→16:38)
[2019-05-05 07:06] LABS: Absolute Lymphocytes (CBC) 0.8 K/uL (0.7-4.9); Basophils % 0.5 % (0-1.3); Hematocrit 29.8 % (39.6-49.0); MPV 9.5 fL (7.6-11.3); RBC Red Blood Cell Count 3.09 M/uL (4.33-5.43)
[2019-05-05 07:18] LABS: Magnesium 2.8 mg/dL (1.8-2.4); Potassium 4.4 mmol/L (3.5-5.1)
[2019-05-05] MEDS: INSULIN -REGULAR HUMAN 50 UNIT/0.5 ML ML SQ SCH ×4 (07:30→21:00)
[2019-05-05] MEDS: APIXABAN 2.5 MG TABLET PO SCH ×2 (09:24→20:38)
[2019-05-05] MEDS: PANTOPRAZOLE 40 MG INJ IVP SCH (09:24)
[2019-05-05] MEDS: Ciprofloxacin 200mg IV 200 MG/100 ML IV.SOLN. IV SCH (09:25)
--- NOTE | 2019-05-05 09:25 | P.PN ---
Subjective Date of Service: 05/05/19 Primary Care Provider: Tito Moise NP; Nephrology-Dr. López Chief Complaint: Right lower quadrant abdominal pain, nausea, vomiting Subjective: Improving Patient seen and examined at bedside. No family at bedside. Chart reviewed and case discussed with nursing staff. Patient reports improvement in his abdomen. Denies any nausea, vomiting, chest pain, shortness breath, diarrhea at this time. No concerns or complaints to offer this morning. Tolerated CLD Review of Systems 10-point ROS is otherwise unremarkable Physical Examination - Vital Signs Temperature: 97 F Blood Pressure: 118/89 Pulse: 104 Respirations: 18 Pulse Ox (%): 100 - Physical Exam General: Alert, In no apparent distress, Oriented x3 HEENT: Atraumatic, PERRLA, EOMI Neck: Supple, JVD not distended Respiratory: Clear to auscultation bilaterally, Normal air movement Cardiovascular: Normal S1 S2, Irregular heart rate/rhythm (Atrial fibrillation) Gastrointestinal: Normal bowel sounds, No tenderness Musculoskeletal: No tenderness, Other (Prosthesis bilaterally lower extremity) Integumentary: No rashes Neurological: Normal speech, Normal tone, Normal affect Lymphatics: No axilla or inguinal lymphadenopathy - Studies Medications List Reviewed: Yes Assessment And Plan - Current Problems (Diagnosis) (1) Abdominal pain Current Visit: Yes Status: Acute Plan: Secondary to right-sided colitis; Resolved -continue ciprofloxacin and Flagyl. Will convert to oral once tolerating p.o. diet. -cultures pending -Advance to full liquid diet today as patient with improved symptoms -general surgery consulted. Likely no need for surgical intervention at this time. Qualifiers: Abdominal location: right lower quadrant Qualified Code(s): R10.31 - Right lower quadrant pain (2) ESRD (end stage renal disease) on dialysis Onset Date: 05/04/15 Current Visit: No Status: Chronic Plan: -nephrology consulted, recommendations appreciated. Dialysis per Nephrology -patient with hemodialysis Monday, Monday, Monday. -midodrine prior to dialysis (3) A-fib Current Visit: No Status: Chronic Plan: Patient currently in atrial fibrillation. -continue Eliquis for blood thinners. -will restart metoprolol as blood pressure improved. -Continue to monitor VS Qualifiers: Atrial fibrillation type: chronic Qualified Code(s): I48.2 - Chronic atrial fibrillation (4) Diabetes Onset Date: 05/04/15 Current Visit: No Status: Chronic Plan: Continue sliding scale insulin and Accu-Cheks. Will monitor and adjust as needed Qualifiers: Diabetes mellitus type: type 2 Diabetes mellitus custodial insulin use: with custodial use Diabetes mellitus complication status: with kidney complications Diabetes mellitus complication detail: with other kidney complication Qualified Code(s): E11.29 - Type 2 diabetes mellitus with other diabetic kidney complication; Z79.4 - ocean transportation intermediary (current) use of insulin (5) Hypertension Current Visit: No Status: Chronic Plan: Improved Blood pressures. Will restart diltiazem and metoprolol - If blood pressures conitnue to elevate, will restart hydralazine and clonidine. Qualifiers: Hypertension type: essential hypertension Qualified Code(s): I10 - Essential (primary) hypertension (6) Renal transplant failure and rejection Current Visit: Yes Status: Acute Plan: Overall stable. Patient currently being re-evaluated for renal transplant in the future. (7) History of left below knee amputation Current Visit: Yes Status: Acute Plan: Patient using prosthetics. Patient may require physical therapy (8) History of right below knee amputation Current Visit: No Status: Acute - Plan DVT prophylaxis: Eliquis GI prophylaxis: Protonix Diet: Full liquid Disposition: Pending symptomatic improvement and dialysis session tomorrow. Anticipate discharge in the next 24 hrs after dialysis session and if able to tolerate soft diet. Discharge Plan: Home Plan to discharge in: 24 Hours
--- NOTE | 2019-05-05 13:57 | P.PN ---
Date of Service: 05/05/19 Vital Signs Temp Pulse Resp BP Pulse Ox 97 F 104 H 18 118/89 100 05/05/19 09:26 05/05/19 09:26 05/05/19 09:26 05/05/19 09:26 05/05/19 09:26 Medications Acetaminophen (Tylenol -Extra Strength) 500 mg PO Q4HP PRN PRN Reason: TEMP > 101' F Stop: 06/02/19 13:33 Acetaminophen (Tylenol Suppository) [address] Q6HP PRN PRN Reason: TEMP > 101' F Stop: 06/02/19 13:33 Apixaban (Eliquis) 2.5 mg PO BID ANGELICA Stop: 06/02/19 21:01 Last Admin: 05/05/19 09:24 Dose: 2.5 mg Diltiazem HCl (Cardizem Cd) 120 mg PO DAILY AFTER SUPPER ANGELICA Stop: 06/04/19 17:31 Heparin Sodium (Porcine) (Heparin 1,000 Units/Ml) 2,000 unit IV EVERY HD PRN PRN Reason: FLUSH AFTER EACH USE Stop: 06/03/19 16:18 Last Admin: 05/04/19 19:15 Dose: 2,000 unit Hydralazine HCl (Apresoline) 10 mg IV Q6HP PRN PRN Reason: FOR SBP>160 OR DBP>100 Stop: 06/02/19 13:33 Ciprofloxacin/Dextrose (Cipro 200 Mg/100 Ml Ivpb (Premix)) 200 mg in 100 mls @ 100 mls/hr IV DAILY ANGELICA; Protocol Stop: 06/02/19 14:01 Last Admin: 05/05/19 09:25 Dose: 100 mls Metronidazole/Sodium Chloride (Flagyl 500mg/100 Ml Iv Premix) 500 mg in 100 mls @ 200 mls/hr IV Q8HR ANGELICA; Protocol Stop: 06/02/19 17:01 Last Admin: 05/05/19 09:25 Dose: 100 mls Albumin Human (Albumin 25%) 50 mls @ 100 mls/hr IV EVERY HD [facility] Stop: 06/03/19 17:01 Insulin Human Regular (Novolin -R) 0 unit SQ ACHS ANGELICA; Protocol Stop: 06/02/19 16:31 Last Admin: 05/05/19 11:59 Dose: 2 unit Mannitol (Mannitol 12.5 Gm/50 Ml Vial) 12.5 gm IV EVERY HD PRN PRN Reason: Titrate to SBP (MUST DEFINE) Stop: 06/03/19 08:59 Last Admin: 05/04/19 19:35 Dose: 12.5 gm Metoprolol Tartrate (Lopressor) 100 mg PO DAILY ANGELICA Stop: 06/05/19 09:01 Midodrine (Proamatine) 5 mg PO EVERY HD PRN PRN Reason: FOR BLOOD PRESSURE SUPPORT Stop: 06/02/19 13:33 Ondansetron HCl (Zofran) 4 mg IV Q6HP PRN PRN Reason: NAUSEA / VOMITING Stop: 06/02/19 13:33 Pantoprazole Sodium (Protonix Inj) 40 mg IVP DAILY [facility]; Protocol Stop: 06/03/19 09:01 Last Admin: 05/05/19 09:24 Dose: 40 mg Sodium Chloride (Normal Saline Flush) 10 ml IV BID ANGELICA Stop: 06/02/19 21:01 Last Admin: 05/05/19 09:26 Dose: 10 ml Sodium Chloride (Sodium Chloride 10 Ml Inj) 10 ml IV UD PRN PRN Reason: Diluant Stop: 06/02/19 13:33 Assessment/ Plan: Nephrology. Feeling better today. CPS stable without CP or SOB. Tolerated HD well yesterday. No acute events overnight. Vitals, medications, blood work and imaging reviewed in the chart. General: Oriented x3, Cooperative HEENT: Atraumatic Neck: Supple Respiratory: Clear to auscultation bilaterally Cardiovascular: Regular rate/rhythm, Edema Gastrointestinal: Soft and benign, Non-distended, No guarding, Tenderness Musculoskeletal: No clubbing, No contractures Integumentary: No rashes, No cyanosis Neurological: Normal speech Blood work reviewed in the chart. Na 136; K 5.1; BUN 48 Imagings Data: EXAM DESCRIPTION: CT - Abdomen Pelvis Wo Contrast - 05/03/2019 11:01 am CLINICAL HISTORY: Abdominal pain, right lower quadrant pain, body aches and chills, renal transplant patient COMPARISON: CT October 07, 2018, portable chest May 03 TECHNIQUE: Axial [address] imaging of the abdomen and pelvis was performed without IV contrast. No IV contrast was given because of allergy, abnormal renal function, patient refusal or physician request. No oral contrast given. All CT scans are performed using dose optimization technique as appropriate and may include automated exposure control or mA/KV adjustment according to patient size. FINDINGS: No acute pleural or parenchymal process. No pericardial thickening or effusion. The liver, spleen and pancreas show no suspicious findings on non-contrast imaging. Gallbladder and biliary tree are also without suspicious finding. [place] kidneys show substantial thinning of the cortex. Dense arterial tree calcifications. [place] renal function cannot be assessed. Mass lesion is not suspected. The transplant kidney is present retroperitoneal lower right abdomen. This has significant cortical thinning as well and may be a non functioning kidney. Urinary bladder is fully contracted. No significant adrenal finding. Isodense renal masses and pyelonephritis cannot be excluded in the absence of IV contrast. No acute stomach or small bowel finding. Terminal ileum shows no acute finding. The appendix is normal. There is irregular circumferential wall thickening of the cecum and proximal portion of the ascending colon. Stranding is seen in the surrounding fat with a trace amount of fluid in the pericolic gutter. This is most likely a nonspecific colitis or typhlitis. Colon malignancy is not excluded. Remainder the colon shows no acute finding. No free air, free fluid, pneumatosis or other site of inflammatory stranding. No mass or bulky lymphadenopathy. Patient has advanced degenerative change involving the lower 4 disc levels in the lumbar spine including the posterior elements. Bony foraminal encroachment changes are present at the lower 3 levels. No infectious or pathologic component seen through this region. Partial compression of T10 and T11 noted. There is partial compression of T9. Bone loss changes are present at the T7-8 disc level which is the initial image on this study. The September 2018 CT chest detailed discitis/osteomyelitis changes in this region. It is unknown these have been addressed. Today's examination is not adequate to evaluate for any progressive bone loss or change in this region. IMPRESSION: Circumferential wall thickening and surrounding inflammatory stranding involving the cecum and proximal portion ascending colon. This is most commonly colitis or typhlitis. Malignancy cannot be excluded and can be re- evaluated with colonoscopy after medical management. There are no additional findings on this study that would elevate likelihood of malignancy over infectious/inflammatory process of the right colon. Discitis/osteomyelitis changes are present at the T7-8 level only partially imaged on this study. Today's study is not adequate to evaluate for any changes that may have occurred since the September study. Additional findings were detailed through this region on that study and it is uncertain if the patient has received and treatment. Very thin cortex of each [place] kidney likely nonfunctioning. There is significant thinning of the cortex in a right lower abdominal transplant kidney also not likely functional. Full assessment is limited is the absence of IV contrast. EXAM DESCRIPTION: [facility] Single View05/03/2019 9:15 am CLINICAL HISTORY: Cough COMPARISON: September 2018 FINDINGS: The patient is in a poor degree of inspiration. Old left rib fractures noted. The lungs appear clear of acute infiltrate. The heart is normal size Conclusions/Impression: A/ ESRD on HD. Chronic hypotension on midodrine. Diastolic CHF, chronic. DM II with CKD. Anemia in CKD. TERENCE/ Secondary HyperPTH. Acute diverticulitis of the colon. P/ Continue current POC and Medications. Next HD tomorrow. Continue abx. Advance diet as tolerated. No NSAIDs. AM labs. Daily weight. Case discussed with Dr. Chavez.
[2019-05-05] MEDS: DILTIAZEM HCL 120 MG SR CAP PO SCH (17:19)
[2019-05-05] MEDS ORDERED: DILTIAZEM HCL 120 MG PO SCH (17:30)
--- NOTE | 2019-05-05 21:49 | CON ---
Date of Consultation: 05/05/2019 Diagnosis: Colitis, abdominal pain. History Of Present Illness: This is the case of a 59-year-old patient, who comes to us with right-si ded abdominal pain. He thought that it could be appendicitis, so he come to the ER. When he came to the ER, was diagnosed with ascending colitis. The patient stays in the constant list. For that kamran son, he had a colonoscopy done about 5 years ago and he claimed there was no diverticulum for any thierry ors or any pathology in that area. He is due for another colonoscopy this next November. The pain star juan m about 2 days ago. Since he was not getting better when he comes to us, he denies any dysuria, he maturia, hematochezia, or melena. Denies any recent traveling out of the country. Denies eating any thing out of the usual. Denies any family members sick at home. Past Medical History: Atrial fibrillation, diabetes. He is on dialysis. Glaucoma, hyperlipidemia. Past Surgical History: Include bilateral below-knee amputations, kidney transplant. Medications: Reviewed including Eliquis. Social History: He does not smoke. He does not drink alcohol. Family History: Noncontributory. Physical Examination: General: Patient is awake and alert. HEENT: Pupils are equal and reactive, anicteric. Neck: Supple. Chest: Clear. Abdomen: Soft and depressible. Mild right lower quadrant tenderness. No guarding or rebound. No p eritoneal signs. Patient is comfortable with no major tenderness. Rectal: Deferred. Extremities: Bilateral below-knee amputations, well healed. Laboratory Data: Blood work initially shows WBC count of 14.1, but then came down to normal. INR is 1.23. Creatinine is elevated, but once again is a renal patient. The CAT scan of the abdomen and p rocio read by radiologist as ascending colitis. Appendix seems to be normal. No malignancy can now be ruled out. Assessment And Plan: This is a 59-year-old patient with multiple medical problems along with right a scending colon inflammation, etiology of that is unknown. He feels a lot better right now. We recom mend the patient when the inflammation goes down and he received his antibiotics. If he improves cli nically, then to have GI see him for colonoscopy as an outpatient. This should be done sooner rather than later within the next few weeks. He understands the benefits, alternatives, and risks of that. At this moment, he does not have any peritonitis. We are going to keep observing him overnight onc e again. MELY/JAYA Voice ID: [id number] Report ID: [id number]
[2019-05-06] MEDS: METRONIDAZOLE 500mg IVPB 500 MG/100 ML BAG IV SCH ×3 (00:21→17:00)
[2019-05-06 07:07] LABS: Absolute Lymphocytes (CBC) 0.8 K/uL (0.7-4.9); Basophils % 0.4 % (0-1.3); Hematocrit 31.6 % (39.6-49.0); Lymphocytes % 15.6 % (15.3-44.8); MPV 9.6 fL (7.6-11.3)
[2019-05-06] MEDS: INSULIN -REGULAR HUMAN 50 UNIT/0.5 ML ML SQ SCH ×4 (07:30→21:00)
[2019-05-06 07:43] LABS: Magnesium 2.9 mg/dL (1.8-2.4); Potassium 4.7 mmol/L (3.5-5.1)
[2019-05-06] MEDS ORDERED: METOPROLOL TAR 50 MG TAB PO SCH (09:00)
[2019-05-06] MEDS: PANTOPRAZOLE 40 MG INJ IVP SCH (09:48)
[2019-05-06] MEDS: Ciprofloxacin 200mg IV 200 MG/100 ML IV.SOLN. IV SCH (09:48)
[2019-05-06] MEDS: APIXABAN 2.5 MG TABLET PO SCH ×2 (09:49→21:24)
[2019-05-06] MEDS ORDERED: NA CHLORIDE 0.9% 1,000 ML IV PRN (10:14)
--- NOTE | 2019-05-06 14:05 | PN ---
Date of Progress Note: 05/06/2019 Diagnosis: Ascending colitis. Subjective: Patient doing better, tolerating full liquid diet. No nausea, no vomiting. Passing gas . Review of Systems: Ten-point systems otherwise unremarkable. Physical Examination: Chest: Clear. Abdomen: Soft and depressible. No guarding or rebound. Extremities: Good capillary refill. Laboratory Data: Blood work shows WBC count of 5.0. Plan: Advance the diet. 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 antibiotics then, we encouraged him to see this GI doctor as soon as possible. MELY/JAYA Voice ID: [id number] Report ID: [id number]
[2019-05-06 16:20] VITALS: BP 153/85; TEMP 96.8
[2019-05-06] MEDS: DILTIAZEM HCL 120 MG SR CAP PO SCH (17:16)
--- NOTE | 2019-05-06 19:03 | P.PN ---
Date of Service: 05/06/19 Vital Signs Temp Pulse Resp BP Pulse Ox 96.8 F 84 16 153/85 H 100 05/06/19 16:00 05/06/19 16:00 05/06/19 16:00 05/06/19 16:00 05/06/19 16:00 Medications Acetaminophen (Tylenol -Extra Strength) 500 mg PO Q4HP PRN PRN Reason: TEMP > 101' F Stop: 06/02/19 13:33 Acetaminophen (Tylenol Suppository) 650 mg [place] Q6HP PRN PRN Reason: TEMP > 101' F Stop: 06/02/19 13:33 Apixaban (Eliquis) 2.5 mg PO BID ANGELICA Stop: 06/02/19 21:01 Last Admin: 05/06/19 09:49 Dose: 2.5 mg Diltiazem HCl (Cardizem Cd) 120 mg PO DAILY AFTER SUPPER ANGELICA Stop: 06/04/19 17:31 Last Admin: 05/06/19 17:16 Dose: Not Given Heparin Sodium (Porcine) (Heparin 1,000 Units/Ml) 2,000 unit IV EVERY HD PRN PRN Reason: FLUSH AFTER EACH USE Stop: 06/03/19 16:18 Last Admin: 05/04/19 19:15 Dose: 2,000 unit Hydralazine HCl (Apresoline) 10 mg IV Q6HP PRN PRN Reason: FOR SBP>160 OR DBP>100 Stop: 06/02/19 13:33 Ciprofloxacin/Dextrose (Cipro 200 Mg/100 Ml Ivpb (Premix)) 200 mg in 100 mls @ 100 mls/hr IV DAILY ANGELICA; Protocol Stop: 06/02/19 14:01 Last Admin: 05/06/19 09:48 Dose: 100 mls Metronidazole/Sodium Chloride (Flagyl 500mg/100 Ml Iv Premix) 500 mg in 100 mls @ 200 mls/hr IV Q8HR ANGELICA; Protocol Stop: 06/02/19 17:01 Last Admin: 05/06/19 17:00 Dose: Not Given Albumin Human (Albumin 25%) 50 mls @ 100 mls/hr IV EVERY HD ANGELICA Stop: 06/03/19 17:01 Sodium Chloride (Ns 1000 Ml Ivbag) 1,000 mls @ 0 mls/hr IV .Q0M PRN PRN Reason: Priming and BP support at HD Stop: 05/06/19 23:59 Insulin Human Regular (Novolin -R) 0 unit SQ ACHS [facility]; Protocol Stop: 06/02/19 16:31 Last Admin: 05/06/19 16:30 Dose: Not Given Mannitol (Mannitol 12.5 Gm/50 Ml Vial) 12.5 gm IV EVERY HD PRN PRN Reason: Titrate to SBP (MUST DEFINE) Stop: 06/03/19 08:59 Last Admin: 05/04/19 19:35 Dose: 12.5 gm Metoprolol Tartrate (Lopressor) 100 mg PO DAILY [facility] Stop: 06/05/19 09:01 Last Admin: 05/06/19 09:55 Dose: 100 mg Midodrine (Proamatine) 5 mg PO EVERY HD PRN PRN Reason: FOR BLOOD PRESSURE SUPPORT Stop: 06/02/19 13:33 Last Admin: 05/06/19 16:23 Dose: 5 mg Ondansetron HCl (Zofran) 4 mg IV Q6HP PRN PRN Reason: NAUSEA / VOMITING Stop: 06/02/19 13:33 Pantoprazole Sodium (Protonix Inj) 40 mg IVP DAILY [facility]; Protocol Stop: 06/03/19 09:01 Last Admin: 05/06/19 09:48 Dose: 40 mg Sodium Chloride (Normal Saline Flush) 10 ml IV BID [facility] Stop: 06/02/19 21:01 Last Admin: 05/06/19 09:50 Dose: 10 ml Sodium Chloride (Sodium Chloride 10 Ml Inj) 10 ml IV UD PRN PRN Reason: Diluant Stop: 06/02/19 13:33 Lab Results (last 24 hrs) 05/06/19 11:14: POC Glucose 204 H 05/06/19 07:32: POC Glucose 141 H 05/06/19 06:22: Sodium 137, Potassium 4.7, Chloride 101, Carbon Dioxide 26, BUN 39 H, Creatinine 8.12 H* D, Estimated GFR 7 L, Glucose 135 H, Calcium 9.5, Magnesium 2.9 H 05/06/19 06:22: WBC 5.0, RBC 3.30 L, Hgb 10.7 L, Hct 31.6 L, MCV 95.7, MCH 32.4 , MCHC 33.9, RDW 15.0, Plt Count 137 L, MPV 9.6, Neutrophils % 74.0 H, Lymphocytes % 15.6, Monocytes % 5.5, Eosinophils % 4.5 H, Basophils % 0.4, Absolute Neutrophils 3.7, Absolute Lymphocytes 0.8, Absolute Monocytes 0.3, Absolute Eosinophils 0.2, Absolute Basophils 0.0 05/05/19 19:36: POC Glucose 182 H Microbiology Results 05/03/19 14:40 Blood - Blood Aerobic Blood Culture - Preliminary 05/03/19 14:40 Blood - Blood Gram Stain - Preliminary 05/03/19 14:40 Blood - Blood Anaerobic Blood Culture - Preliminary No growth in 24 hours. 05/03/19 Unknown Blood - Blood Aerobic Blood Culture - Preliminary No growth in 24 hours. 05/03/19 Unknown Blood - Blood Anaerobic Blood Culture - Preliminary No growth in 24 hours. Assessment/ Plan: Nephrology. Doing well and feeling better. CPS stable without CP or SOB. No acute events overnight. Vitals, medications, blood work and imaging reviewed in the chart. General: Oriented x3, Cooperative HEENT: Atraumatic Neck: Supple Respiratory: Clear to auscultation bilaterally Cardiovascular: Regular rate/rhythm, Edema Gastrointestinal: Soft and benign, Non-distended, No guarding, Tenderness Musculoskeletal: No clubbing, No contractures Integumentary: No rashes, No cyanosis Neurological: Normal speech Blood work reviewed in the chart. Na 136; K 5.1; BUN 48 Imagings Data: EXAM DESCRIPTION: CT - Abdomen Pelvis Wo Contrast - 05/03/2019 11:01 am CLINICAL HISTORY: Abdominal pain, right lower quadrant pain, body aches and chills, renal transplant patient COMPARISON: CT October 07, 2018, portable chest May 03 TECHNIQUE: Axial [address] imaging of the abdomen and pelvis was performed without IV contrast. No IV contrast was given because of allergy, abnormal renal function, patient refusal or physician request. No oral contrast given. All CT scans are performed using dose optimization technique as appropriate and may include automated exposure control or mA/KV adjustment according to patient size. FINDINGS: No acute pleural or parenchymal process. No pericardial thickening or effusion. The liver, spleen and pancreas show no suspicious findings on non-contrast imaging. Gallbladder and biliary tree are also without suspicious finding. [place] kidneys show substantial thinning of the cortex. Dense arterial tree calcifications. [place] renal function cannot be assessed. Mass lesion is not suspected. The transplant kidney is present retroperitoneal lower right abdomen. This has significant cortical thinning as well and may be a non functioning kidney. Urinary bladder is fully contracted. No significant adrenal finding. Isodense renal masses and pyelonephritis cannot be excluded in the absence of IV contrast. No acute stomach or small bowel finding. Terminal ileum shows no acute finding. The appendix is normal. There is irregular circumferential wall thickening of the cecum and proximal portion of the ascending colon. Stranding is seen in the surrounding fat with a trace amount of fluid in the pericolic gutter. This is most likely a nonspecific colitis or typhlitis. Colon malignancy is not excluded. Remainder the colon shows no acute finding. No free air, free fluid, pneumatosis or other site of inflammatory stranding. No mass or bulky lymphadenopathy. Patient has advanced degenerative change involving the lower 4 disc levels in the lumbar spine including the posterior elements. Bony foraminal encroachment changes are present at the lower 3 levels. No infectious or pathologic component seen through this region. Partial compression of T10 and T11 noted. There is partial compression of T9. Bone loss changes are present at the T7-8 disc level which is the initial image on this study. The September 2018 CT chest detailed discitis/osteomyelitis changes in this region. It is unknown these have been addressed. Today's examination is not adequate to evaluate for any progressive bone loss or change in this region. IMPRESSION: Circumferential wall thickening and surrounding inflammatory stranding involving the cecum and proximal portion ascending colon. This is most commonly colitis or typhlitis. Malignancy cannot be excluded and can be re- evaluated with colonoscopy after medical management. There are no additional findings on this study that would elevate likelihood of malignancy over infectious/inflammatory process of the right colon. Discitis/osteomyelitis changes are present at the T7-8 level only partially imaged on this study. Today's study is not adequate to evaluate for any changes that may have occurred since the September study. Additional findings were detailed through this region on that study and it is uncertain if the patient has received and treatment. Very thin cortex of each [place] kidney likely nonfunctioning. There is significant thinning of the cortex in a right lower abdominal transplant kidney also not likely functional. Full assessment is limited is the absence of IV contrast. EXAM DESCRIPTION: [facility] Single View05/03/2019 9:15 am CLINICAL HISTORY: Cough COMPARISON: September 2018 FINDINGS: The patient is in a poor degree of inspiration. Old left rib fractures noted. The lungs appear clear of acute infiltrate. The heart is normal size Conclusions/Impression: A/ ESRD on HD. Chronic hypotension on midodrine. Diastolic CHF, chronic. DM II with CKD. Anemia in CKD. TERENCE/ Secondary HyperPTH. Acute diverticulitis of the colon. P/ Continue current POC and Medications. Acute HD ordered for today. Case discussed with HD nurse. Continue abx. Advance diet as tolerated. No NSAIDs. AM labs. Daily weight.
[2019-05-06 21:15] VITALS: O2SAT 97
[2019-05-08 03:45] LABS: HBsAG Nonreactive (Nonreactive)
== END 2019-05-06 21:59 | disposition home or self-care (01) | DRG 391 ==
LOC: ER 08:16 → ERHOLD 11:51 → INTOOBSV 11:51 → 2ND 13:36 → OBSVTOIN 05-06 12:18
PROVIDERS: ADMIT Family Medicine; ATTEND Family Medicine
PROC: 5A1D70Z Performance of Urinary Filtration, Intermittent, Less than 6 Hours Per Day (ICD-10-PCS; principal; 2019-05-06)
PROC: 5A1D70Z Performance of Urinary Filtration, Intermittent, Less than 6 Hours Per Day (ICD-10-PCS; 2019-05-06)
DX: K52.9 Noninfective gastroenteritis and colitis, unspecified (principal); N18.6 End stage renal disease; I13.2 Hypertensive heart and chronic kidney disease with heart failure and with stage 5 chronic kidney disease, or end stage renal disease; I50.32 Chronic diastolic (congestive) heart failure; T86.11 Kidney transplant rejection; E11.22 Type 2 diabetes mellitus with diabetic chronic kidney disease; Z99.2 Dependence on renal dialysis; I95.89 Other hypotension; D63.1 Anemia in chronic kidney disease; I48.2 Chronic atrial fibrillation; Z79.01 Long term (current) use of anticoagulants; Z89.512 Acquired absence of left leg below knee; Z89.511 Acquired absence of right leg below knee
CPT/HCPCS: 36415; 71045; 74176; 80048; 80076; 82962; 83690; 83735; 83880; 84145; 84484; 85025; 85610; 86317; 86704; 86706; 87040; 87205; 87340; 90935; 93005; 96361; 96365; 96367; 96375; 99285; C9113; G0378; J0744; J1160; J1644; J2150; J2405; J2543; J3010

== ENCOUNTER 2020-10-29 06:01 | Emergency (ER) | payer OTHER ==
--- NOTE | 2020-10-29 07:16 | ER ---
Nurse's Notes [facility] Name: Archie Hu Age: 60 yrs Sex: Male : 1960 Arrival Date: 10/29/2020 Time: 06:04 Bed 12 Private MD: Diagnosis: Presentation: 10/29 06:18 Chief complaint: Patient states: Im not able to do dialysis today due to water issues sg at the dialysis clinic. Initial Sepsis Screen:. Risk Assessment: Do you want to hurt yourself or someone else? Patient reports no desire to harm self or others. Onset of symptoms was October 29, 2020. Care prior to arrival: None. Transition of care: patient was not received from another setting of care. 06:18 Acuity: KEVON 3 sg 06:18 Method Of Arrival: Wheelchair sg Historical: - PMHx: 06:18 Atrial Fib; Diabetes - IDDM; Dialysis; MWF - compliant; ESRD; Glaucoma; Hyperlipidemia; sg - PSHx: 06:18 kacy. below the knee amputations; kidney transplant; sg - Immunization history:: Adult Immunizations up to date. - Social history:: Smoking status: Patient denies any tobacco usage or history of. ED Course: 06:04 Patient arrived in ED. cl3 06:18 Arm band placed on. sg 06:19 Triage completed. sg 07:15 Winter Yuen, RN is Primary Nurse. tw2 Administered Medications: No medications were administered Outcome: 07:16 Patient left the ED. tl1 Signatures: Dionte Montiel RN RN Zara Abdi RN RN tl1 Winter Yuen RN RN tw2 Trena Perez cl3 Corrections: (The following items were deleted from the chart) 07: 07:15 Call light in reach. tw 07: 07:15 Pulse ox on. NIBP on. tw 07: 07:15 Abuse screen: Denies threats or abuse. tw: 07:15 Nutritional screening: No deficits noted. tw 07: 07:15 Tuberculosis screening: No symptoms or risk factors identified. tw 07: 07:15 Fall Risk None identified. tw tw
== END 2020-10-29 07:16 | disposition left against medical advice (07) ==
LOC: ER 06:01
DX: Z53.21 Procedure and treatment not carried out due to patient leaving prior to being seen by health care provider (principal)
CPT/HCPCS: 99281

== ENCOUNTER 2020-12-08 06:09 | Day surgery (SDC) | payer OTHER ==
[2020-11-27 12:39] LABS: Absolute Lymphocytes (CBC) 0.9 K/uL (0.7-4.9); Basophils % 0.6 % (0-1.3); Hematocrit 41.9 % (39.6-49.0); RBC Red Blood Cell Count 4.34 M/uL (4.33-5.43)
--- NOTE | 2020-11-27 12:43 | RAD REPORT ---
EXAM DESCRIPTION: RAD - Chest Pa And Lat (2 Views) - 11/27/2020 12:34 pm CLINICAL HISTORY: preop Chest pain. COMPARISON: Chest Single View dated 05/03/2019; Chest Pa And Lat (2 Views) dated 10/07/2018; Chest Sin gle View dated 12/17/2015; CHEST PA AND LAT 2 VIEW dated 11/09/2015; Chest Abd Pelvis Wo Con dated 2018 FINDINGS: The lungs are mildly hyperexpanded. There is a small radiodensity in the right upper lobe which appears more prominent than on the prior study. The heart is normal in size. No displaced fract ures.
[2020-11-27 13:05] LABS: Potassium 4.9 mmol/L (3.5-5.1)
[2020-12-08] MEDS ORDERED: CEFAZOLIN/SWI 1gm 1 GM/10 ML SYR ONE (07:01)
[2020-12-08] MEDS ORDERED: NA CHLORIDE 0.9% 1,000 ML ONE (07:01)
[2020-12-08] MEDS ORDERED: LIDOCAINE 1% MPF 5 ML VIAL ONE (07:20)
[2020-12-08] MEDS ORDERED: FENTANYL CITR 100 MCG/2 ML ONE (07:20)
[2020-12-08] MEDS ORDERED: MIDAZOLAM HCL 2 MG/2 ML INJ ONE (07:20)
[2020-12-08] MEDS ORDERED: propofoL 200 MG/20 ML VIAL IV ONE (07:20)
[2020-12-08] MEDS ORDERED: ONDANSETRON 4 MG/2 ML VIAL ONE (08:06)
[2020-12-08] MEDS ORDERED: Phenylephrine HCl 10 MG/ML 1 ML VIAL ONE (08:08)
[2020-12-08] MEDS ORDERED: NS 0.9% VIAL 10 ML ONE (08:08)
[2020-12-08 09:15] VITALS: BP 123/73; TEMP 96.8; O2SAT 100
--- NOTE | 2020-12-08 11:00 | OP ---
Date of Procedure: 12/08/2020 Surgeon: Durga Butler MD Preoperative Diagnosis: Left thigh mass x2. Postoperative Diagnosis: Left thigh mass x2. Procedure: Wide excision of left lateral thigh mass 5 x 3 cm with layered closure and wide excision of left posterior thigh mass 4 x 2 cm with layered closure. Estimated Blood Loss: Minimal. Specimen: Left thigh mass x2. Findings: Likely sebaceous cyst. Anesthesia: General. Complications: None. Disposition: The patient tolerated the procedure in stable condition and taken to Recovery in good g eneral condition. Procedure In Detail: The patient was brought to the OR and placed in supine position. General anest hesia begun. The patient was placed in right lateral position, prepped and draped in the usual steri le fashion. Marcaine 0.5% infiltrated locally. Then, a 5 x 3 and 4 x 2 cm incision made to excise b oth sebaceous cysts down through the deep subcutaneous tissue, excised, labeled appropriately, and se nt to Pathology. Wound irrigated. Bleeding controlled cautery and both wounds closed with 3-0 chrom ic in the subcutaneous tissue and 4-0 nylon to approximate the skin. Sterile dressing was applied. The patient was awakened and taken to Recovery in good general condition. Discharge Note: The patient will go to Day Surgery and home when stable. Disposition: Home. Condition: Stable. Discharge Instructions: Resume home medications and diet. Activity as tolerated. No heavy lifting. Remove outer dressing in 2 days. Shower. Keep wound clean and dry. Follow up in my office in 2 w eeks. Call for appointment. Tylenol No.3 one tablet p.o. q.6 p.r.n. pain and Keflex 500 mg p.o. q.1 2. /MODL Voice ID: [id number] Report ID: [id number]
== END 2020-12-08 09:40 | disposition home or self-care (01) ==
LOC: OR 06:09
PROVIDERS: ATTEND Surgery
PROC: 0JBM0ZZ Excision of Left Upper Leg Subcutaneous Tissue and Fascia, Open Approach (ICD-10-PCS; principal; 2020-12-08 07:30)
DX: L72.0 Epidermal cyst (principal); Z20.822 Contact with and (suspected) exposure to COVID-19
CPT/HCPCS: 93005; 85025; 80048; 36415; 82947 ×2; 88304; 71046; 11406; U0003; J2704; J2370; J2250; J3010; J0690; J7030; J2405

== ENCOUNTER → 2021-04-22 | Day surgery (SDC) | payer OTHER ==
[2021-04-20 10:00] LABS: Absolute Lymphocytes (CBC) 0.6 K/uL (0.7-4.9); Basophils % 0.9 % (0-1.3); Hematocrit 33.8 % (39.6-49.0); Lymphocytes % 12.7 % (15.3-44.8); MPV 8.7 fL (7.6-11.3); RBC Red Blood Cell Count 3.47 M/uL (4.33-5.43)
== END ==
LOC: OR 08:25
PROVIDERS: ATTEND Surgery
DX: R22.41 Localized swelling, mass and lump, right lower limb (principal); Z53.29 Procedure and treatment not carried out because of patient's decision for other reasons
CPT/HCPCS: 36415; 80048; 85025

== ENCOUNTER 2021-09-30 07:16 | Day surgery (SDC) | payer OTHER ==
[2021-09-28 09:39] LABS: Absolute Lymphocytes (CBC) 0.8 K/uL (0.7-4.9); Hematocrit 39.2 % (39.6-49.0); Lymphocytes % 14.4 % (15.3-44.8); MPV 8.8 fL (7.6-11.3); RBC Red Blood Cell Count 4.02 M/uL (4.33-5.43)
[2021-09-28 10:04] LABS: Potassium 5.5 mmol/L (3.5-5.1)
[2021-09-30] MEDS ORDERED: NA CHLORIDE 0.9% 500 ML ONE (07:35)
[2021-09-30] MEDS ORDERED: CEFAZOLIN/NS 1gm 1 GM/50 ML BAG ONE (08:01)
[2021-09-30] MEDS ORDERED: FENTANYL CITR 100 MCG/2 ML ONE (08:17)
[2021-09-30] MEDS ORDERED: MIDAZOLAM HCL 2 MG/2 ML INJ ONE (08:17)
[2021-09-30] MEDS ORDERED: propofoL 200 MG/20 ML VIAL IV ONE ×2 (08:17→09:21)
[2021-09-30] MEDS ORDERED: KETOROLAC 30 MG/ML INJ ONE (08:18)
[2021-09-30] MEDS ORDERED: LIDOCAINE 2% MPF 5 ML VIAL ONE (08:18)
[2021-09-30] MEDS ORDERED: dexAMETHasone 4 MG/ML VIAL ONE (08:19)
[2021-09-30] MEDS ORDERED: ONDANSETRON 4 MG/2 ML VIAL ONE (08:19)
[2021-09-30] MEDS ORDERED: LIDOCAINE 1% 20 ML MDV ONE (08:49)
[2021-09-30] MEDS ORDERED: NA CHLORIDE 0.9% 50 ML ONE (08:55)
[2021-09-30] MEDS: BUPIVACAINE 0.5% PF 10 ML VIAL ONE ×2 (09:04→09:24)
[2021-09-30 11:09] VITALS: BP 92/59; TEMP 97.6; O2SAT 96
--- NOTE | 2021-09-30 11:36 | OP ---
Date of Procedure: 09/30/2021 Surgeon: Durga Butler MD Cutting Machine Operator: JOSE ENRIQUE Chaudhari Preoperative Diagnosis: Right distal medial thigh mass and left posterior buttock mass. Postoperative Diagnosis: Right distal medial thigh mass and left posterior buttock mass. Procedure: Wide excision of right thigh mass 4 x 2 cm with layered closure and left buttock mass 4 x 2 cm with layered closure. Estimated Blood Loss: Minimal. Specimen: Right thigh and left buttock mass, both consistent with either epidermal inclusion cyst or sebaceous cyst. Finding: As above. Anesthesia: MAC. Complications: None. Disposition: The patient tolerated the procedure in stable condition and taken to Recovery in good g eneral condition. Procedure In Detail: The patient was brought to the OR and placed in supine position. MAC anesthesi a was begun. The patient was prepped and draped in the usual sterile fashion in the lithotomy positi on. Then, Marcaine 0.5% was infiltrated locally. A 15-blade was used to make a 4 x 2 cm incision de leon rrounding both masses that were hard and deep in the subcutaneous tissue, 1 on the right medial dista l thigh and 1 on the left posterior buttock area. Both masses were excised and sent to Pathology aft er being appropriately labeled. Wound irrigated. Bleeding controlled with cautery. A 3-0 chromic u sed to approximate the subcutaneous tissue and 4-0 nylon used to close the skin. Sterile dressing ap plied. The patient was awakened and taken to Recovery in good general condition. Discharge Note: The patient will go to Day Surgery and home when stable. Disposition: Home. Condition: Stable. Discharge Instructions: Resume home medications and diet. Activity as tolerated. No heavy lifting. Remove outer dressing in 2 days. Shower. Keep wound clean and dry. Dry gauze to wound daily. Fo llow up in my office in 2 weeks. Call for appointment. Tylenol No.3 one tablet p.o. q.4 p.r.n. pain , Keflex 500 mg p.o. q.12. /MODL Voice ID: [id number] Report ID: [id number]
== END 2021-09-30 10:42 | disposition home or self-care (01) ==
LOC: OR 07:16
PROVIDERS: ATTEND Surgery
PROC: 0JB90ZZ Excision of Buttock Subcutaneous Tissue and Fascia, Open Approach (ICD-10-PCS; 2021-09-30)
PROC: 0HBHXZZ Excision of Right Upper Leg Skin, External Approach (ICD-10-PCS; principal; 2021-09-30 09:00)
DX: L72.0 Epidermal cyst (principal); R22.41 Localized swelling, mass and lump, right lower limb; Z20.822 Contact with and (suspected) exposure to COVID-19
CPT/HCPCS: 85025; 80048; 36415; 82947; 88304; 11404 ×2; U0003; J2704 ×2; J2250; J3010; J0690; J7040; J2405; J1100